=== PATIENT | female | born 1935 | race Caucasian/White ===

== ENCOUNTER 2016-08-06 18:17 | Inpatient (IN) ==
[2016-08-06] MEDS ORDERED: Ondansetron 4 MG/2 ML VIAL IVP ONE (18:19)
[2016-08-06] MEDS ORDERED: *HR* Heparin 5,000 UNIT/ML VIAL IVP ONE (18:19)
[2016-08-06] MEDS ORDERED: *HR* Heparin 5,000 UNIT/ML VIAL IVP PRN ×2 (18:19)
[2016-08-06] MEDS ORDERED: *HR* Ticagrelor 90 MG TABLET PO ONE (18:19)
--- NOTE | 2016-08-06 18:23 | Emergency Department Note ---
Disposition Clinical Impression: ST elevation myocardial infarction (STEMI) Qualifiers: Involved coronary artery: LAD coronary artery Qualified Code(s): I21.02 - ST elevation (STEMI) myocardial infarction involving left anterior descending coronary artery Disposition: Admitted As Inpatient Condition: Fair Chest Pain HPI - General Chief Complaint: ED Chest Pain Stated Complaint: chest pain Time Seen by Provider: 08/06/16 18:18 Source: patient, EMS Mode of arrival: EMS Limitations: no limitations Vital Signs Reviewed: Yes Nursing Notes Reviewed: Yes - History of Present Illness HPI Narrative: 81-year-old female presents for evaluation of chest pain left shoulder pain. Notes pain started proctoring 2 hours prior to arrival. Patient notes pain is nonexertional. Associated with nausea. No vomiting. Patient denies any cardiac history. No stents. Pre-hospital EKG was concerning for STEMI in the anterior lateral wall. Patient received aspirin as well as 2 nitroglycerin in route. Intervention manager animal was paged regarding these findings. Recommended to repeat an EKG in the ER with updates. Patient's updated EKG shows an anterior lateral STEMI. STEMI alert was called upon arrival to the ED. Pt complaint: chest pain - Related Data Allergies Allergy/AdvReac Type Severity Reaction Status Date / Time Influenza Virus Vaccines Allergy Hives Verified 08/06/16 18:28 All systems ED: reviewed and negative except as stated. Constitutional: Reports: as per HPI. Denies: fever Eyes: Reports: as per HPI ENT ED: Reports: as per HPI Cardiovascular: Reports: as per HPI, chest pain Respiratory: Reports: as per HPI. Denies: dyspnea Gastrointestinal: Reports: as per HPI, nausea Genitourinary: Reports: as per HPI Musculoskeletal: Reports: as per HPI Integumentary: Reports: as per HPI Neurological: Reports: as per HPI Psychiatric: Reports: as per HPI Endocrine: Reports: as per HPI Hematological/Lymphatic: Reports: as per HPI Allergic/Immunologic: Reports: as per HPI Physical Exam - General Limitations: no limitations General appearance: alert, other (Appears uncomfortable) - Head Head exam: atraumatic, normocephalic, normal inspection - Eye Eye exam: Present: normal appearance, EOMI - ENT ENT exam: normal exam, mucous membranes moist - Neck Neck exam: Present: normal inspection, trachea midline - Chest Chest inspection: Present: normal inspection, symmetric chest wall rise - Respiratory Respiratory exam: Present: normal lung sounds bilaterally. Absent: respiratory distress - Cardiovascular Cardiovascular exam: Present: regular rate, normal rhythm. Absent: systolic murmur - Abdominal Exam Abdominal exam: Present: soft, Non-Tender - Extremities Exam Extremities exam: Present: normal inspection. Absent: pedal edema - Back Exam Back exam: Present: normal inspection - Neurological Exam Neurological exam: Present: alert, oriented X3 - Skin Skin exam: Present: warm, dry, intact, normal color Course Course Narrative: Patient seen and examined. Patient's in acute distress. Stimulator notified upon - Reevaluation(s) Reevaluation #1: STEMI alert called. Time: 18:23 - Consultations Consultation #1: Spoke with Dr. Byers. STEMI alert called. Time: 18:23 Vital Signs Temperature 98.2 F 08/06/16 18:18 Pulse Rate 102 08/06/16 18:18 Respiratory Rate 16 08/06/16 18:18 Blood Pressure 108/79 08/06/16 18:18 O2 Sat by Pulse Oximetry 95 08/06/16 18:18 Temperature 98.2 F 08/06/16 18:18 Pulse Rate 102 08/06/16 18:18 Respiratory Rate 16 08/06/16 18:18 Blood Pressure 108/79 08/06/16 18:18 O2 Sat by Pulse Oximetry 95 08/06/16 18:18 Oxygen Delivery Oxygen Delivery Room Air Chest Pain - MDM Narrative Medical decision making narrative: 81-year-old female presents for evaluation of chest pain. Patient had a prehospital EKG was suggestive of STEMI. Called cardiology prehospital and recommended to repeat EKG. Updated repeat EKG shows acute STEMI in the anterior lateral wall with ST elevation in the anterior lateral leads. Activated catheter lab. Patient received aspirin as well as nitroglycerin. STEMI protocol was followed. Patient was updated on plan of care instructed that she was having a heart attack and will be transferred to the intervention suite for definitive management. Family not at bedside at the time of my evaluation. - Radiology Data Radiology results reviewed: Yes I reviewed the patient's radiology results. - EKG Data EKG attestation: Yes I reviewed and interpreted this EKG. EKG shows normal: sinus rhythm Rate: normal Rhythm: NSR [place]/QRS: normal ST segment elevation in: I, aVL, v3, v4, v5, v6 Interpretation: acute NH
--- NOTE | 2016-08-06 18:28 | Emergency Department Note ---
START Narrative - START START: I examined this patient and my medical decision-making was reviewed with the TYPE CUTTER/PA/Advanced Practice Nurse/Resident Physician. I agree with the documented findings, disposition and treatment plan as described except to the extent set forth below. ED attending note: Patient seen with emergency medicine resident Dr. Alcocer. Please see a copy of his note for details of the H&P, evaluation, management and disposition of this patient. We independently had wlei-co-[id number] contact with the patient Briefly: A 81-year-old female by EMS. Ambulance crew sent a pre-arrival EKG which is suggestive of acute anterolateral ST elevation OR. I discussed the case with Dr. Cisneros stand in after receiving an interpreting that EMS EKG. His recommendation was to await arrival repeat EKG and tone out the STEMI alert. Upon arrival patient was pain was 10 out of 10 2 hours duration radiating to the neck and arm nonexertional with no prior history of OR or stents, had an EKG which showed an ST elevation OR in the anterolateral leads. STEMI protocol and STEMI alert has been activated. And we recontacted Dr. Byers with this updated information. Provided 30 minutes critical care service for this patient. Patient is being medicated and will be transported to the cardiac catheter lab as soon as possible.
[2016-08-06] MEDS ORDERED: Heparin 25,000 UNIT/500 ML D5W 25,000 UNIT/500 ML MLS IVC SCH (18:30)
[2016-08-06] MEDS ORDERED: Nitroglycerin 25 MG/250 ML INFUS..BTL IVC SCH (18:30)
[2016-08-06 18:36] LABS: Basophils # 0.1 K/mcL (0.0-0.2); Basophils % 0.5 %; Eosinophils # 0.2 K/mcL (0.0-0.6); Eosinophils % 1.1 %; Hematocrit 43.5 % (35.3-44.9); Hemoglobin 14.5 g/dL (11.5-15.4); Immature Granulocytes % 0.4 % (0-4); Lymphocytes # 2.4 K/mcL (0.6-4.6); Lymphocytes % 16.6 %; Mean Corpuscular HGB Conc 33.3 g/dL (31.6-35.5); Mean Corpuscular Hemoglobin 33.7 pg (28.0-33.3); Mean Corpuscular Volume 101.2 fL (83.0-100.0); Mean Platelet Volume 9.1 fL (9.4-12.4); Monocytes # 1.1 K/mcL (0.0-1.3); Monocytes % 7.6 %; Neutrophils # 10.4 K/mcL (1.6-8.9); Platelet Count 380 K/mcL (140-400); Red Cell Distribution Width 12.2 % (11.5-14.5); Segmented Neutrophils % 73.8 %
[2016-08-06 18:40] LABS: Prothrombin Time 10.4 Seconds (9.4-12.1)
[2016-08-06 18:43] LABS: Activated Partial Thrombo Time 24.2 Seconds (26.0-36.0)
[2016-08-06] MEDS ORDERED: *HR* Morphine 2 MG/ML SYRINGE IVP ONE (18:43)
[2016-08-06] MEDS ORDERED: *HR* Morphine 2 MG/ML SYRINGE ONE (18:43)
[2016-08-06] MEDS ORDERED: Verapamil 5 MG/2 ML VIAL ONE (18:47)
[2016-08-06] MEDS ORDERED: Heparin 1,000 UNITS/500 mL NS 500 ML ONE (18:48)
[2016-08-06] MEDS ORDERED: Nitroglycerin 1,000 MCG/10 ML VIAL IV ONE (18:48)
[2016-08-06] MEDS ORDERED: *HR* Heparin 10,000 UNIT/10 ML VIAL ONE (18:48)
[2016-08-06] MEDS ORDERED: 0.9 % Sodium Chloride 1,000 ML ONE ×2 (18:48→19:02)
[2016-08-06 18:49] LABS: Calcium 9.2 mg/dL (8.6-10.8); Magnesium 1.4 mg/dL (1.6-2.6)
[2016-08-06] MEDS ORDERED: *HR* FentaNYL (PF) 250 MCG/5 ML VIAL ONE (19:02)
[2016-08-06] MEDS ORDERED: *HR* Midazolam HCl 5 MG/5 ML VIAL IVP ONE (19:02)
--- NOTE | 2016-08-06 19:05 | Pre-Sedation Evaluation ---
Pre-sedation evaluation - Pre-sedation checklist Date of procedure: 08/06/16 Procedure: [facility] Recent Vitals: Last Vital Signs Temp 98.2 F 08/06/16 18:18 Pulse 101 08/06/16 18:55 Resp 18 08/06/16 19:01 BP 105/75 08/06/16 19:01 Pulse Ox 96 08/06/16 18:55 H&P (including ROS) documented in medical record: Yes Previous reaction to sedatives/anesthetics: Unknown Dietary Status: unknown Airway Assessment: Patient can open mouth completely, TMJ function normal ASA Classification *see protocol: CLASS II-Mild systemic disease, E-EMERGENCY- Add to any of the above to indicate emergent Plan of Care: Pt appropriate candidate for procedure/moderate/conscious sedation , Risks/benefits of procedure/sedation discussed w/ patient/family, If not NPO; Risk of intake outweiged by necessity to perform procedure (stemi - acute mi - emergent)
[2016-08-06] MEDS ORDERED: Tirofiban 5 MG/100ML 5 MG/100 ML BAG IV ONE (19:15)
[2016-08-06] MEDS ORDERED: *HR* Adenosine 6 MG/2 ML VIAL IVP ONE (20:03)
[2016-08-06] MEDS ORDERED: niCARdipine 20 MG/200 ML MLS IVC ONE (20:07)
[2016-08-06] MEDS ORDERED: Furosemide 40 MG/4 ML VIAL IVP PRN (20:27)
[2016-08-06] MEDS ORDERED: Tirofiban 12.5 MG/250ML 12.5 MG/250 ML BAG IVC SCH (20:30)
[2016-08-06] MEDS ORDERED: *HR* HYDROcodone/Acet 5/325 mg TABLET PO PRN (20:30)
[2016-08-06] MEDS ORDERED: Nitroglycerin 0.4 MG TAB.SUBL SL PRN (20:30)
--- NOTE | 2016-08-06 20:43 | Invasive Diagnostic Lab Proc ---
Name: Pushpa Bernardo Date of Study: 08/06/2016 Date: 1935 Ht: 68.1in Medical Record#: [id number] Age: 81 Wt: 159.84lb Gender: Female BSA: 1.86 Order #: [id number] BMI: 24.22 Physicians Procedure Physician: Da Byers MD, [facility] Referring MD: Referring MD: Staff Name Position Time In Sites, Shena RT (R) Monitor 07:06 PM Nannette Perez RT Scrub 07:07 PM Terry Talley RN Fats And Oils Loader 07:07 PM Indications Indication STEMI Procedures Performed Procedure L HRT ARTERY/VENTRICLE ANGIO PRQ CARD REVASC MT 1 VSL Pre-Procedure Checklist Pt not NPO for procedure and MD aware. Plan of Care Patient will tolerate the procedure without complications. Adequate level of comfort will be maintained. Hemodynamics will remain stable Patient will recover from procedure without complications. Respiratory function will be maintained. Cardiac rhythm will remain stable. Patient temperature will be maintained. Patient and/or family have verbalized understanding of the procedure. Patient Education Allergies Penicillin Influenza Virus Vaccines Vital Signs Time BP (mmHg) HR (bpm) O2 Sat. RR (bpm) LOC 07:10 PM / % 4 = Oriented but drowsy 07:10 PM / % 4 = Oriented but drowsy 07:26 PM / % 4 = Oriented but drowsy 07:56 PM / % 4 = Oriented but drowsy 08:11 PM / % 4 = Oriented but drowsy 07:06 PM 124 / 84 87 100 % 07:11 PM 103 / 77 107 95 % 17 07:16 PM 100 / 64 104 94 % 24 07:20 PM 107 / 79 96 92 % 15 07:21 PM 114 / 68 99 96 % 15 07:26 PM 111 / 75 96 95 % 18 07:31 PM 115 / 76 96 94 % 07:36 PM 111 / 74 97 94 % 15 07:41 PM 105 / 68 94 93 % 28 07:46 PM 119 / 76 94 94 % 23 07:51 PM 119 / 84 99 92 % 18 07:56 PM 122 / 82 97 93 % 31 08:01 PM 114 / 83 96 92 % 10 08:06 PM 100 / 72 102 93 % 7 08:11 PM 92 / 54 100 93 % 21 08:16 PM 83 / 59 98 91 % 18 08:17 PM 86 / 57 98 86 % 17 08:21 PM 92 / 60 93 80 % 08:26 PM 103 / 67 88 93 % 23 Procedural Medications Time Medication Dose Units Method Given By 07:09 PM Oxygen 2 L/min nasal cannula Terry Talley RN 07:09 PM Versed 1 mg Intravenous Terry Talley RN 07:10 PM Fentanyl 25 mcg Intravenous Terry Talley RN 07:10 PM Lidocaine 2% 0.5 ml Subcutaneous Da Byers MD, FACC 07:10 PM Nitroglycerin 200 mcg Verapamil 2.5 mg Intraarterial Da Byers MD, FACC 07:52 PM Heparin 1000 units Intravenous Terry Talley RN 07:17 PM Aggrastat Bolus: 37.5 ml Intravenous Terry Talley RN 07:17 PM Aggrastat 12.5mg/250ml 6.6 ml Intravenous Terry Talley RN 07:57 PM Versed 1 mg Intravenous Terry Talley RN 07:58 PM Fentanyl 25 mcg Intravenous Terry Talley RN 08:03 PM Nitroglycerin 200 mcg Intracoronary Da Byers MD 08:06 PM Adenosine 60 mcg Intracoronary Da Byers MD, FACC 08:06 PM Adenosine 60 mcg Intracoronary Da Byers MD, FACC 08:06 PM Adenosine 60 mcg Intracoronary Da Byers MD, FACC 08:07 PM Adenosine 60 mcg Intracoronary Da Byers MD, FACC 08:07 PM Adenosine 60 mcg Intracoronary Da Byers MD, FACC 08:07 PM Adenosine 60 mcg Intracoronary Da Byers MD, FACC 08:09 PM Cardene 0.1 mg Intracoronary Da Byers MD 08:15 PM Cardene 0.1 mg Intracoronary Da Byers MD 08:19 PM Nitroglycerin 200 mcg Intracoronary Da Byers MD 08:20 PM Nitroglycerin 150 mcg Intracoronary Da Byers MD 08:20 PM Oxygen 10 L/min oximask Terry Talley RN Concha Score Preprocedure Postprocedure Activity 2- Moves 4 extremities sustained head lift Activity 2- Moves 4 extremities sustained head lift Circulation 2- SBP +/= 20 points of pre-anesthetic level Circulation 2- SBP +/= 20 points of pre-anesthetic level Consciousness 2- Awake and alert oriented x 3 Consciousness 2- Awake and alert oriented x 3 O2 Saturation 2- Able to maintain O2 satruation of 92% on room air O2 Saturation 2- Able to maintain O2 satruation of 92% on room air Respiratory 2- Able to deep breathe and cough well Respiratory 2- Able to deep breathe and cough well Total Score 10 Total Score 10 Contrast Agent: Isovue Diagnostic Contrast: 246 ml Total Contrast: 246 ml Fluoro Dose: 2779 mGy Activated Clotting Time Time Seconds to Clot 08:02 PM 289 Procedure Log Time Note Enter By 06:55 PM CathStat 07:00 PM Hernan, Shena RT (R) Position: Monitor Time in: 19:00 [email or web address] 07:00 PM Nannette Perez RT Position: Scrub Time in: 19:00 [email or web address] 07:00 PM Terry Talley RN Position: Fats And Oils Loader Time in: 19:00 csmith 07:00 PM Patient charges- Angio tray pack, Navilyst 3mm J, Pulse Oximetry and ACIST tubing and transducer csmith 07:00 PM Procedure start 19:00 csmith 07:00 PM Pt arrived to labor economist 2 at 19:00 csmith 07:05 PM Physician arrived 19:05 csmith 07:05 PM Vitals capture started with the following parameters, Patient=Adult, Interval=5 min, Initial Sawbvkgh=518 mmHg, Deflation Rate=5 mmHg, Cuff placed on Right Arm 07:06 PM Recorded ECG: IB=189 Condition=Condition 1 07:06 PM HR=87 bpm, JOMJ=206/84 mmhg, VzF7=642.0 %, Comment=st elevation 07:07 PM Hair removed from procedure site in procedure lab using clippers. Right wrist and groin prepped with Chloraprep by Shena Becerra RT (R), safety strap applied then patient was draped. Skin intact. [facility] 07:09 PM Pressure channel 1 zeroed. 07:09 PM Case Delayed No : PM Time: 19:09 Oxygen on at 2 L/min per nasal cannula by Terry Talley RN tsites 07:10 PM Time: 19:09 Versed 1 mg Intravenous Given by Terry Talley RN ts 07:10 PM Time: 19:10 Fentanyl 25 mcg Intravenous Given by Terry Talley RN ts 07:10 PM Time: 19:10 0.5 ml Lidocaine 2% to right radial Subcutaneous Given by Da Byers MD, [facility] tsites 07:10 PM Time: 19:10 Patient comfortable and pain free: No 07:10 PM Time: 19:10LOC: 4 = Oriented but drowsy tsites 07:10 PM Clinical Presentation: STEMI or equivalent tsites 07:10 PM Time out performed according to hospital policy tsites 07:10 PM Access obtained by percutaneous puncture. 6Fr 10cm Terumo Glidesheath sheath placed in right Radial artery. [id number] tsites 07:11 PM Time: 19:10 Patient given 200 mcg Nitroglycerin, and 2.5 mg Verapamil Intraarterial by Da Byers MD, [facility] tsites 07:11 PM 0.035 260cm Navilyst 3mmJ wire [id number] tsites 07:11 PM [place]=230 bpm, FZHS=284/77 mmhg, SpO2=95 %, Resp=17 B/min 07:11 PM Inflation device was opened. tsites 07:12 PM LCA angiography performed in multiple views. tsites 07:13 PM Recorded Pressure: Ao, ME=268, Condition=Condition 1 (Aorta) Ao 116/92/104 07:14 PM PCI Status Emergency tsites 07:14 PM PCI Indication: Immediate PCI for STEMI tsites 07:14 PM 6Fr RBL 3.5 Convey guide catheter was used to cannulate the PCI vessel successfully. reused? No tsites 07:14 PM .014 PT Graphix 182cm guide wire across target lesion- successful. reused? No tsites 07:15 PM PCI lesion in Proximal LAD. Pre Stenosis: 100 Pre ANJELICA Flow: 0: No Flow/No perfusion tsites 07:16 PM RV=757 bpm, ZMBN=267/64 mmhg, SpO2=94 %, Resp=24 B/min, Comment=st elevation 07:16 PM .014 Prowater 180cm guide wire across target lesion- successful. reused? No tsites 07:17 PM Time: 19:52 Heparin 1000 units Intravenous Given by Terry Talley RN tsites 07:17 PM Time: 19:17 Aggrastat Bolus: 37.5 ml Intravenous Given by Terry Talley RN Mota pump tsites 07:17 PM Time: 19:17 Aggrastat 12.5mg/250ml 6.6 ml Intravenous Given by Terry Talley RN Mota pump tsites 07:19 PM 2.0 mm x 15 mm Emerge Monorail balloon across target lesion- successful. reused? No tsites 07:20 PM NIBP STAT measurement started. 07:20 PM HR=96 bpm, PZBB=384/79 mmhg, SpO2=92.0 %, Resp=15 B/min, Comment=st elevation 07:21 PM Balloon inflated @ 0.5 horace for 3 seconds tsites 07:21 PM HR=99 bpm, VVVQ=974/68 mmhg, SpO2=96.0 %, Resp=15 B/min 07:22 PM Balloon catheter removed intact. tsites 07:22 PM Guide wire removed intact. tsites 07:26 PM HR=96 bpm, FJLW=380/75 mmhg, SpO2=95 %, Resp=18 B/min, Comment=st elevation 07:26 PM Time: 19:10LOC: 4 = Oriented but drowsy tsites 07:26 PM Time: 19:10 Patient comfortable and pain free:yes tsites 07:30 PM .014 Fielder xt 300cm guide wire across target lesion- successful. reused? No tsites 07:31 PM 2.0 mm x 15 mm Emerge otw balloon across target lesion-unsuccessful. reused? No tsites 07:31 PM HR=96 bpm, OBTY=783/76 mmhg, SpO2=94 %, Comment=st elevation 07:36 PM HR=97 bpm, UWFU=938/74 mmhg, SpO2=94 %, Resp=15 B/min, Comment=st elevation 07:41 PM HR=94 bpm, XHSR=300/68 mmhg, SpO2=93 %, Resp=28 B/min, Comment=st elevation 07:41 PM Time: 19:26 Patient comfortable and pain free: Yes tsites 07:41 PM Time: 19:26LOC: 4 = Oriented but drowsy tsites 07:46 PM HR=94 bpm, KUGV=821/76 mmhg, SpO2=94 %, Resp=23 B/min 07:47 PM 2.0x15 emerge monorail reinserted tsites 07:51 PM Guide wire removed intact. tsites 07:51 PM Balloon catheter removed intact. tsites 07:51 PM Fielder wire and 2.0x15 otw reinserted tsites 07:51 PM HR=99 bpm, TTME=457/84 mmhg, SpO2=92 %, Resp=18 B/min, Comment=st elevation 07:52 PM Balloon inflated @ 10 horace for 19 seconds tsites 07:52 PM Balloon inflated @ 12 horace for 14 seconds tsites 07:54 PM Balloon inflated @ 14 horace for 16 seconds tsites 07:56 PM HR=97 bpm, JTWV=713/82 mmhg, SpO2=93 %, Resp=31 B/min, Comment=st elevation 07:56 PM Guide wire removed intact. tsites 07:57 PM Balloon catheter removed intact. tsites 07:58 PM Time: 19:57 Versed 1 mg Intravenous Given by Terry Talley RN tsites 07:58 PM Time: 19:58 Fentanyl 25 mcg Intravenous Given by Terry Talley RN tsites 07:59 PM act drawn tsites 08:00 PM prowater reinserted tsites 08:01 PM 3.0mm x 32mm Synergy drug-eluting stent across target lesion- successful Lot #[id number] tsites 08:01 PM Balloon inflated @ 12 horace for 14 seconds tsites 08:01 PM HR=96 bpm, YBTF=755/83 mmhg, SpO2=92.0 %, Resp=10 B/min, Comment=st elevation 08:02 PM At 20:02 the ACT was 289 seconds. tsites 08:03 PM Stent delivery system removed intact. tsites 08:03 PM Time: 20:03 Nitroglycerin 200 mcg Intracoronary Given by Da Byers MD tsites 08:04 PM 3.0 mm x 8mm NC Trek Rx balloon across target lesion- successful. reused? No tsites 08:04 PM Balloon inflated @ 18 horace for 12 seconds tsites 08:05 PM Balloon inflated @ 18 horace for 12 seconds tsites 08:06 PM Time: 20:06 Adenosine 60 mcg administered Intracoronary by Da Byers MD, [facility] tsites 08:06 PM Time: 20:06 Adenosine 60 mcg administered Intracoronary by Da Byers MD, [facility] tsites 08:06 PM Time: 20:06 Adenosine 60 mcg administered Intracoronary by Da Byers MD, [facility] tsites 08:06 PM RV=380 bpm, MYVI=521/72 mmhg, SpO2=93 %, Resp=7 B/min, Comment=st elevation 08:07 PM Time: 20:07 Adenosine 60 mcg administered Intracoronary by Da Byers MD, [facility] tsites 08:07 PM Time: 20:07 Adenosine 60 mcg administered Intracoronary by Da Byers MD, [facility] tsites 08:07 PM Time: 20:07 Adenosine 60 mcg administered Intracoronary by Da Byers MD, FACC tsites 08:08 PM Balloon catheter removed intact. tsites 08:10 PM Time: 20:09 Cardene 0.1 mg Intracoronary Given by Da Byers MD tsites 08:11 PM OS=069 bpm, NIBP=92/54 mmhg, SpO2=93 %, Resp=21 B/min, Comment=st elevation 08:11 PM Time: 19:56LOC: 4 = Oriented but drowsy tsites 08:11 PM Time: 19:56 Patient comfortable and pain free: Yes tsites 08:12 PM 2.0 mm x 15 mm Emerge Monorail balloon across target lesion- successful. reused? No tsites 08:14 PM Balloon inflated @ 10 horace for 4 seconds tsites 08:14 PM Balloon inflated @ 4 horace for 2 seconds tsites 08:15 PM Time: 20:15 Cardene 0.1 mg Intracoronary Given by Da Byers MD tsites 08:16 PM Guide wire removed intact. tsites 08:16 PM Balloon catheter removed intact. tsites 08:16 PM HR=98 bpm, NIBP=83/59 mmhg, SpO2=91.0 %, Resp=18 B/min 08:16 PM NIBP STAT measurement started. 08:16 PM wire reinserted catheter removed tsites 08:17 PM 5Fr TIG catheter inserted over the wire DNC tsites 08:17 PM HR=98 bpm, NIBP=86/57 mmhg, SpO2=86 %, Resp=17 B/min 08:18 PM Pressure channel 1 zeroed. 08:18 PM Recorded Pressure: LV, HR=92, Condition=Condition 1 (Left Ventricle) LV 102/24/39 08:19 PM Recorded Pressure: LV, HR=97, Condition=Condition 1 (Left Ventricle) LV 83/20/36 08:20 PM Recorded Pressure: LV, Ao, HR=94, Condition=Condition 1 (Left Ventricle) LV 86/19/33, (Aorta) Ao 84/50/68 08:20 PM Time: 20:19 Nitroglycerin 200 mcg Intracoronary Given by Da Byers MD tsites 08:20 PM Time: 20:20 Nitroglycerin 150 mcg Intracoronary Given by Da Byers MD tsites 08:20 PM Catheter selectively placed in left ventricle tsites 08:20 PM edp measured tsites 08:20 PM Time: 20:20 Oxygen on at 10 L/min per oximask by Terry Talley RN tsites 08:21 PM HR=93 bpm, NIBP=92/60 mmhg, SpO2=80.0 % 08:21 PM Recorded Pressure: Ao, HR=92, Condition=Condition 1 (Aorta) Ao 97/81/89 08:21 PM RCA angiography performed in multiple views. tsites 08:22 PM Coronary Dominance: right tsites 08:22 PM Lesion found in Mid RCA. Pre Stenosis: 50 Pre ANJELICA Flow: tsites 08:23 PM Procedure completed at 20:23 tsites 08:23 PM Sign out completed: Radiation Dose 2779 mGy Fluoro Time: 30.6 Isovue 370 - 500ml contrast 246 ml given by Da Byers MD, [facility]. Complications: NoneCardiac Rehab Consult needed: YesConfirmed administered medications: Yes tsites 08:24 PM Isovue 370 - 500ml,1 Bottle(s) used. tsites 08:24 PM Arterial sheath pulled, Vasc Band closure device used and was Successful S/N. tsites 08:24 PM 12 ml air in Vasc Band. tsites 08:24 PM Post ECG NSR tsites 08:24 PM Post Blood Pressure 92/60 tsites 08:24 PM 20:24 Post Pulses Rt Radial 1+ tsites 08:25 PM Information taught Cardiac Cath, PCI, and Vasc Band tsites 08:25 PM Education needs Procedure, Plan of Care, and Responsibilities of Patient in Care tsites 08:25 PM Learning barriers :None tsites 08:25 PM Education Methods Verbal tsites 08:25 PM Education evaluation Able to repeat information tsites 08:25 PM Site status No bleeding/hematoma - Rt Wrist as reported by Nannette Perez RT at 20:25 tsites 08:25 PM Plavix, Effient or Brilinta given Yes Brlinta in ER tsites 08:25 PM Delay to floor No tsites 08:25 PM Patient out of room: 20:25 tsites 08:25 PM Family placed in consult room. tsites 08:26 PM HR=88 bpm, BTJO=380/67 mmhg, SpO2=93.0 %, Resp=23 B/min 08:27 PM Time: 20:11 Patient comfortable and pain free: Yes tsites 08:27 PM Time: 20:11LOC: 4 = Oriented but drowsy tsites 08:35 PM Report given to devonte SEBASTIAN Pt taken to ICU Room #5. 20:35 tsites Complications Complication None Hemodynamics Pressures Site Systolic/A Wave Diastolic/V Wave Mean AO 116 92 104 LV 102 24 39 LV 83 20 36 LV 86 19 33 AO 84 50 68 AO 97 81 89 Post Procedure Information Blood Pressure: 92/60 mmHg Rhythm: NSR Post procedural instructions were given Closure Device Time Device Success/Fail 08/06/2016 8:26:00 PM Mechanical Compression Successful Site Checks Time Location Status Staff Sheath In? Note 08:25 PM Rt Wrist No bleeding/hematoma Nannette Perez RT Pulses Time Site Pre-Procedure Post-Procedure Note 8:24:00 PM Rt Radial 1+ Updated by Shena Hernan RT (R) on 08/06/2016 8:36:38 PM Shena Becerra RT electronically signed on 08/06/2016 8:37:05 PM with status of Final
[2016-08-06] MEDS: *HR* Ticagrelor 90 MG TABLET PO SCH (21:00)
[2016-08-07] MEDS: *HR* Morphine 2 MG/ML SYRINGE IVP PRN ×2 (00:01→22:15)
[2016-08-07 03:48] LABS: Basophils % 0.3 %; Eosinophils % 0.1 %; Hematocrit 37.1 % (35.3-44.9); Immature Granulocytes % 0.5 % (0-4); Immature Platelets 3.4 % (1.1-6.1); Lymphocytes # 1.8 K/mcL (0.6-4.6); Lymphocytes % 11.3 %; Mean Corpuscular HGB Conc 33.7 g/dL (31.6-35.5); Mean Corpuscular Hemoglobin 34.2 pg (28.0-33.3); Mean Corpuscular Volume 101.4 fL (83.0-100.0); Mean Platelet Volume 9.4 fL (9.4-12.4); Monocytes # 1.7 K/mcL (0.0-1.3); Monocytes % 10.9 %; Neutrophils # 11.9 K/mcL (1.6-8.9); Platelet Count 339 K/mcL (140-400); Red Blood Count 3.66 M/mcL (3.82-4.97); Red Cell Distribution Width 12.5 % (11.5-14.5); Segmented Neutrophils % 76.9 %
[2016-08-07 03:52] LABS: Hemoglobin 12.5 g/dL (11.5-15.4)
[2016-08-07 03:59] LABS: BUN/Creatinine Ratio 19 (6-26); Blood Urea Nitrogen 16 mg/dL (7-20); Calcium 8.2 mg/dL (8.6-10.8); Carbon Dioxide 22 mEq/L (19-29); Chloride 103 mEq/L (98-109); Glucose 123 mg/dL (70-99); Osmolality,Calculated 283 (280-300); Potassium 4.5 mEq/L (3.5-4.5); Sodium 135 mEq/L (136-145); eGFR For African Americans > 60 (> 60); eGFR For Non-African Americans > 60 (> 60)
[2016-08-07] MEDS: *HR* Heparin 5,000 UNIT/ML VIAL SQ SCH ×2 (06:10→18:05)
[2016-08-07] MEDS: *HR* Ticagrelor 90 MG TABLET PO SCH ×2 (08:00→20:42)
[2016-08-07] MEDS: Aspirin 81 MG TAB.CHEW PO SCH (08:00)
--- NOTE | 2016-08-07 08:27 | Cardiology History & Physical ---
Date of Encounter: 08/07/16 Time of Encounter: 08:30 Assessment and Plan (1) ST elevation myocardial infarction (STEMI) Current Visit: Yes Status: Acute Acute WI - anterolateral STEMI - likely proximal LAD. Critical guarded prognosis. Emergent LHC to delineate coronary anatomy amenable to primary PCI. Aspirin, brilinta, heparin given. Plan for transradial over transfemoral approach. EF assessment will be completed via ventriculogram or echo. Cardiac rehab consult. The assessment and plan as outlined above was discussed with the patient and/or family members who expressed understanding and agreement. All questions were answered. Qualifiers: Involved coronary artery: LAD coronary artery Qualified Code(s): I21.02 - ST elevation (STEMI) myocardial infarction involving left anterior descending coronary artery (2) Acute kidney failure Current Visit: Yes Status: Acute BROCK. Attempt to minimize contrast will be made, but given life threatening STEMI - acceptable risk for LHC. The assessment and plan as outlined above was discussed with the patient and/or family members who expressed understanding and agreement. All questions were answered. Qualifiers: Acute renal failure type: unspecified Qualified Code(s): N17.9 - Acute kidney failure, unspecified History of Present Illness Chief complaint: shoulder/chest pressure HPI: Ms. Bernardo is a 81 year old female with no previous cardiac history presents with left shoulder discomfort radiating into chest starting a few hours ago. It was severe intensity and unrelieved with aspirin and nitroglycerin. She also has ?history of renal cancer that has been untreated for several years. No syncope or palpitations. Past Med Surg Social Fam HX - Past Medical History Medical history: cancer, COPD, hypertension Psychiatric history: no psych history - Social History Smoking Status: Current every day smoker Smokeless Tobacco Status: No Alcohol use: none Drug use: none Medications and Allergies Allergies Influenza Virus Vaccines Allergy (Verified 08/06/16 18:28) Hives All Systems Review: A 10-system review of systems was performed and is negative for pertinent findings except as documented above in the HPI. - Constitutional Constitutional: no chills, no fever(s) - EENT Eyes: no blurred vision, no loss of vision Nose, mouth and throat: no bleeding gums, no epistaxis - Cardiovascular Cardiovascular: no chest pain at rest, no chest pain with exertion - Respiratory Respiratory: no hemoptysis, no wheezing - Gastrointestinal Gastrointestinal: no hematemesis, no hematochezia - Genitourinary Genitourinary: no dysuria, no hematuria - Musculoskeletal Musculoskeletal: no arthralgias, no myalgias - Integumentary Integumentary: no erythema, no unusual bruising - Neurological Neurological: no abnormal speech, no tingling - Psychiatric Psychiatric: no anxiety, no depression - Hematological/Lymphatic Hematologic/Lymphatic: no easy bleeding, no easy bruising Physical Examination Vital Signs, Last 4 Hours Temp Pulse Resp BP Pulse Ox 08/07/16 08:00 114 20 99/59 92 08/07/16 07:59 98.4 F 08/07/16 06:00 108 12 102/73 94 08/07/16 05:00 111 12 104/69 94 General: Conversant, Other (mild distress) HEENT: Atraumatic, Normocephaly Neck: No JVD Cardiac: Reg Rate and Rhythm, No Murmur Lungs: Normal Breath Sounds Neuro: Alert and responsive Abdomen: Soft, Non-Tender Skin: No rashes noted on visualized skin Musculoskeletal: No Chest Wall Tenderness Extremities: No Edema Results 08/07/16 03:41 08/07/16 03:41 Lab Results 08/07/16 08/07/16 03:41 03:41 WBC 15.5 H Hgb 12.5 D Hct 37.1 Plt Count 339 Sodium 135 L Potassium 4.5 Chloride 103 Carbon Dioxide 22 BUN 16 Creatinine 0.85 Glucose 123 H Calcium 8.2 L
[2016-08-07] MEDS ORDERED: Magnesium Sulfate 2 GM in D5% in Water 100 ML IVPB ONE (08:54)
--- NOTE | 2016-08-07 10:16 | Cardiology Progress Note ---
Date of Encounter: 08/07/16 Time of Encounter: 08:30 Assessment and Plan (1) ST elevation myocardial infarction (STEMI) Current Visit: Yes Status: Acute Per cardiology: -Patient presented with acute STEMI. -Emergent LHC with 1 SONIDO to proximal LAD. -Per discussion with no other intervention needed, no official cath report to review at this time. -RIght radial access site. -CUrrently chest pain free. -Denies previous history of CAD. -ON asa, statin, and brilinta. -BPs 90-100s systolic. -Sinus tachycardic, average HR 112. -Echo pending. -Of note, per patient's primary RN, family concerned about patient's ability to safely manage her care once she goes home. -Will start low dose beta marc, hold if SBP less than 100. -Will continue to monitor. -Further recommendations pending echo. -building services coordinator consulted. Qualifiers: Involved coronary artery: LAD coronary artery Qualified Code(s): I21.02 - ST elevation (STEMI) myocardial infarction involving left anterior descending coronary artery (2) Non-sustained ventricular tachycardia Current Visit: Yes Status: Acute Per cardiology: -Non-sustained ventricular tachycardia in the setting post STEMI and intervention per telemetry. -Mg noted to be 1.4 on admission. -Otherwise patient sinus tachycardia with average HR 112. -Echo pending. -Mg rider given. -Will recheck Mg level. -Low dose beta marc ordered with hold parameters for SBP less than 100. -Will hold off on IV fluids for now due to EDP of 40. -Further recommendations pending echo. -Will continue to monitor HR and BP. (3) Hypomagnesemia Current Visit: Yes Status: Acute Per cardiology: -Mg 1.4 on admission. -Mg rider given. -Will re-check Mg today. -Will continue to monitor. (4) Urinary pain Current Visit: Yes Status: Acute Per cardiology: -Patient reports burning with urination. -States she was taking over the counter medications to relieve symptoms. -Urine culture ordered. -Will consult hospitalist team for recommendations. (5) Cough Current Visit: Yes Status: Acute Per cardiology: -Patient reports cough for 2-3 weeks. -Patient states it is productive with yellow sputum. -Denies fever, chills. -Chest x-ray with no acute process. -Will consult hospitalist service for recommendations. (6) Renal cancer Current Visit: Yes Status: Suspected Per cardiology: -Patient reports history of renal cancer. -Patient reports she has declined further work up or intervention for cancer. -Per review from in 2013, patient was still thinking about treatment or work up. Of note, it does not appear that patient has had biopsy of mass. She did have MRI in 2013 with 4cm left renal mass. It appears that patient has not followed with since. -Per my discussion with patient, patient still declines further testing or intervention for possible renal cancer. Patient aware of possible cancer, potential metastasis, and risk of . Patient still declines further intervention. -Will consult hospitalist services for recommendations. 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 All questions were answered. Thank you for involving us in the care of your patient. Please call with any questions. Discussed and reviewed with . Subjective Principal diagnosis: STEMI Interval history: Patient presented to [facility] with complaints of chest and left arm pain that occurred about 1-2 hours before presentation. ECG in squad concerning for STEMI , patient was evaluated in ER and ECG was repeated. STEMI alert notified. Patient was taken emergently to labeling strategist for LHC. Patient received 1 drug- eluding stent to proximal LAD. Per discussion with , no other intervention was needed. Patient currently chest pain free. Denies issues using right wrist. Objective Vital Signs, Last 4 Hours Temp Pulse Resp BP Pulse Ox 08/07/16 09:12 118 20 91/54 92 08/07/16 08:00 114 20 99/59 92 08/07/16 07:59 98.4 F General: Conversant, No Apparent Distress HEENT: Atraumatic, Normocephaly, Mucus Membranes Moist Neck: No JVD, Normal carotid pulses Cardiac: Reg Rate and Rhythm, Normal S1 and S2, No Murmur Lungs: Normal Breath Sounds, No Wheeze, Rales, Rhonchi Neuro: Alert and responsive, No focal deficits noted Abdomen: Soft, Non-Tender Skin: No rashes noted on visualized skin, Other (RIght radial access site with bandage. Denies issues using wrist. No bleeding/drainage noted on dressing. ) Musculoskeletal: No Chest Wall Tenderness Extremities: No Clubbing, No Cyanosis, No Edema, Normal Pulses Results 08/07/16 03:41 08/07/16 03:41 Lab Results Impressions Chest X-Ray 08/06/16 18:19 IMPRESSION: 1. No acute process. 2. COPD. D/ / Torito Talley MD / Torito Talley MD Interpreting Provider: Torito Talley MD Active Medications Acetaminophen (Tylenol) 500 mg PO Q6HR PRN PRN Reason: Mild Pain Stop: 02/05/17 20:28 Acetaminophen/Hydrocodone Bitart ([place] 5-325 Mg) 1 tab PO Q4HR PRN PRN Reason: Moderate Pain Stop: 02/05/17 20:31 Aspirin (Aspirin) 81 mg PO DAILY JOSH Stop: 02/06/17 09:01 Last Admin: 08/07/16 08:00 Dose: 81 mg Atorvastatin Calcium (Lipitor) 80 mg PO HS JOSH Stop: 02/05/17 21:01 Last Admin: 08/06/16 21:00 Dose: 80 mg Diphenhydramine HCl (Benadryl) 25 mg PO HS PRN PRN Reason: Insomnia Stop: 02/05/17 20:31 Heparin Sodium (Porcine) (Heparin) 0 unit IVP Q6HR PRN; Protocol PRN Reason: SEE COMMENTS Stop: 02/05/17 18:20 Heparin Sodium (Porcine) (Heparin) 0 unit IVP Q6H PRN; Protocol PRN Reason: SEE COMMENTS Stop: 02/05/17 18:20 Heparin Sodium (Porcine) (Heparin) 5,000 unit SQ Q12HR JOSH Stop: 02/06/17 06:01 Last Admin: 08/07/16 06:10 Dose: 5,000 unit Metoprolol Tartrate (Lopressor) 12.5 mg PO BID JOSH Stop: 02/06/17 10:16 Morphine Sulfate (Morphine Sulfate) 4 mg IVP Q3H PRN PRN Reason: Severe Pain (7-10) Stop: 02/05/17 20:28 Last Admin: 08/07/16 00:01 Dose: 4 mg Nitroglycerin (Nitroglycerin) 0.4 mg SL Q5MIN PRN PRN Reason: Chest Pain Stop: 02/05/17 20:31 Ondansetron HCl (Zofran) 4 mg IVP Q8HR PRN PRN Reason: Nausea And Vomiting Stop: 02/05/17 20:28 Ticagrelor (Brilinta) 90 mg PO BID JOSH Stop: 02/05/17 21:01 Last Admin: 08/07/16 08:00 Dose: 90 mg Laboratory Tests 05/04/15 08/06/16 08/06/16 09:42 18:24 18:24 WBC 14.2 H Hgb Creatinine 0.86 1.07 Magnesium 1.4 L Troponin I 08/06/16 08/07/16 08/07/16 18:24 03:41 03:41 WBC 15.5 H Hgb 12.5 D Creatinine 0.85 Magnesium Troponin I 1.76 H* - Imaging and Cardiology Chest Xray: report reviewed Echo: pending Cardiac cath: report reviewed - EKG Interpretation EKG results cardiology: personally reviewed (ECG reviewed with sinus tachycardia , ST elevated noted in V2-V4.), other (Telemetry reviewed with average HR 112, sinus tachycardia. PVCs noted. Several episodes of non-sustained ventricular tachycardia noted. PACs noted.) Consult Discharge Plan - Plan Referrals: Hillary Renteria CNP [Primary Care Provider] -
[2016-08-07 11:28] LABS: Bilirubin,Urine Negative (Negative); Blood,Urine Moderate (Negative); Clarity,Urine Turbid (Clear); Color,Urine Orange (Yellow); Glucose,Urine (UA) Normal (Normal); Ketones,Urine Negative (Negative); Leukocyte Esterase,Urine Large (Negative); Nitrite,Urine Positive (Negative); PH,Urine 5.5 pH Units (5.0-8.0); Protein,Urine Trace mg/dL (Neg-Trace); Specific Gravity,Urine > 1.030 (1.010-1.025); Urobilinogen,Urine Normal (Normal)
[2016-08-07 11:30] LABS: Bacteria,Urine Many per hpf (None-Few); Hyaline Casts,Urine None Seen per lpf (None-Few); Squamous Epithelial Cell,Urine Moderate per lpf (None-Few); WBC,Urine TNTC per hpf (0-3)
--- NOTE | 2016-08-07 12:10 | Invasive Diagnostic Lab ---
Name: Pushpa Bernardo Date of Study: 08/06/2016 Date: 1935 Ht: 173.0 cm /68.1 in Medical Record#: [id number] Age: 81 Wt: 72.5 kg / 159.84 lb Account/Order#: [id number] Gender: Female BSA: 1.86 Order #: [id number] Fluoro Dose: 2779 mGy BMI: 24.22 Procedure Physician: Da Byers MD, FACC Referring MD: Referring MD: Procedures Performed: LEFT HEART CATH PCI of Acute ND Indications: STEMI Impressions: There is severe one vessel coronary artery disease. Patient had successful PTCA/Drug-Eluting Stent placement in the proximal LAD. Recommendations: Optimal medical therapy of patient's disease. Aggressive risk factor modification. Patient being referred for cardiac rehab. Procedure Access obtained in the right Radial artery by percutaneous puncture Patient had successful PTCA/Drug-Eluting Stent placement in the proximal LAD. Complications: None Contrast: Isovue 246ml Closure Device: Mechanical Compression Hemodynamics: Pressures Site Systolic/ A Wave Diastolic/ V Wave End Diastolic/ Mean HR AO 116 92 104 100 LV 102 24 39 92 LV 83 20 36 97 LV 86 19 33 92 AO 84 50 68 95 AO 97 81 89 92 Coronary Dominance: right Lesion Findings/Interventions * Left Main Coronary Artery The LMCA is angiographically free of disease. * Left Anterior Descending There is a 32 mm long, 100% stenosis in the Proximal LAD. The lesion has a ANJELICA flow of 0 and has no thrombus present. An intervention was performed on the Proximal LAD with a final stenosis of 0%. There were no lesion complications. The final ANJELICA flow was 2. Slow flow treated with multiple rounds of adenosine, nicardipine. Distal LAD low pressure balloon inflation to break up any thrombus. Minimal improvement with treatment. Aggrastat was started prior to PCI. * Circumflex The Circumflex has mid 30% stenosis. The 1st Marginal had 50% stenosis * Right Coronary Artery There is a 50% stenosis in the Mid RCA. Interventional Device(s) Vessel Segment Type Name Diameter (mm) Length (mm) Proximal LAD Balloon Emerge Monorail 2 15 Proximal LAD Balloon Emerge otw 2 15 Proximal LAD Drug Eluting Stent Synergy 3 32 Proximal LAD Balloon NC Trek Rx 3 8 Updated by RT Sarah (R) on 08/06/2016 8:37:23 PM Da Byers MD, FACC electronically signed on 08/07/2016 12:07:18 PM with status of Final
[2016-08-07] MEDS ORDERED: MethylPREDNISolone 40 MG/ML VIAL IVP SCH (12:23)
[2016-08-07] MEDS ORDERED: 0.9 % Sodium Chloride 250 ML IVC ONE (12:24)
--- NOTE | 2016-08-07 12:28 | Internal Medicine Consult Note ---
Date of Encounter: 08/07/16 Time of Encounter: 12:26 - Assessment and Plan (1) Sepsis Current Visit: Yes Status: Acute Assessment and plan: Hypotension due to Sepsis secondary to UTI and acute bacterial bronchitis Start Levaquin, start IV fluids with the 250 mL bolus and continue at 100 mL per hour, may increase to 200 mL/h is still hypotensive Order blood cultures, urine cultures Qualifiers: Sepsis type: sepsis due to unspecified organism Qualified Code(s): A41.9 - Sepsis, unspecified organism (2) UTI (urinary tract infection) Current Visit: Yes Status: Acute Qualifiers: Urinary tract infection type: acute cystitis Hematuria presence: with hematuria Qualified Code(s): N30.01 - Acute cystitis with hematuria (3) COPD (chronic obstructive pulmonary disease) Current Visit: Yes Status: Acute Assessment and plan: Mild Acute COPD exacerbation secondary to acute bacterial bronchitis Continue duo nebs, oxygen, Levaquin and Solu-Medrol Qualifiers: COPD type: emphysema Emphysema type: unspecified Qualified Code(s): J43.9 - Emphysema, unspecified (4) Hypotension Current Visit: Yes Status: Acute Assessment and plan: Secondary to sepsis Qualifiers: Hypotension type: unspecified hypotension type Qualified Code(s): I95.9 - Hypotension, unspecified (5) ST elevation myocardial infarction (STEMI) Current Visit: Yes Status: Acute Assessment and plan: Management per cardiology Drug-eluting stent to the LAD Continue aspirin, Brilinta, metoprolol and statin Qualifiers: Involved coronary artery: LAD coronary artery Qualified Code(s): I21.02 - ST elevation (STEMI) myocardial infarction involving left anterior descending coronary artery (6) Hypomagnesemia Current Visit: Yes Status: Acute Assessment and plan: Replete as needed Start magnesium oxide 400 mg twice a day (7) Non-sustained ventricular tachycardia Current Visit: Yes Status: Acute (8) Renal cancer Current Visit: Yes Status: Suspected Assessment and plan: The patient does not want to have any further testing or treatment for a left renal mass Remains a full code Thank you for allowing me to precipitate in the care of this patient is call with any questions Qualifiers: Laterality: left Qualified Code(s): C64.2 - Malignant neoplasm of left kidney, except renal pelvis Internal Medicine - CN: HPI - Data of Consult Patient: new to practice Consult date: 08/07/16 Requesting Physician: Da Byers MD - Consult Narrative Reason for consult: UTI History of present illness: Ms. Bernardo is a 81 year old female with a past medical history of COPD not oxygen dependent, hypertension who was admitted to the ICU yesterday for STEMI. The patient had a drug-eluting stent placed in the LAD. We were consulted to assess the patient dysuria that has been there for the past 4 days, she is also complaining of yellowish phlegm and shortness of breath. Her blood pressure dropped to the 80s today, her heart rate was 114. She has developed nonsustained V. tach. Magnesium was 1.4. She was also diagnosed with a renal mass on the left kidney for which she does not wish to have any further diagnosis or treatment. The UA shows positive nitrates and too numerous to count white blood cells. She is still complaining of dysuria. Her last troponin was 1.76, white blood cell count today is 15.5. There are no fevers recorded. The patient says that she has been having UTIs for a long period of time but there are no past cultures in our system. 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 Other systems out of the 10 reviewed were negative Internal Medicine - CN: Meds Allergies Influenza Virus Vaccines Allergy (Verified 08/06/16 18:28) Hives Internal Medicine - CN: Exam - Constitutional Vitals: Temp Pulse Resp BP Pulse Ox 98.4 F 113 20 90/68 94 08/07/16 07:59 08/07/16 11:08 08/07/16 11:08 08/07/16 11:08 08/07/16 11:08 General appearance IM: Present: A&O X 3 - Head Head exam: Present: atraumatic, normal inspection - Expanded Head Exam Head exam expanded IM: Absent: abrasion, Burris's sign, contusion - Eye Eye exam: Present: EOMI, normal appearance. Absent: conjunctival injection, nystagmus - ENT ENT exam: Present: mucous membranes dry - Neck Neck exam general surgery: Present: full ROM, normal inspection. Absent: lymphadenopathy - Expanded Neck Exam Neck exam: Absent: anterior neck swelling - Respiratory Respiratory exam: Present: rales (Bivascular fine crackles and mild diffuse wheezing), wheezes - Cardiovascular Cardiovascular exam IM: Present: +S1, +S2, tachycardia - GI/Abdominal GI/Abdominal exam IM: Present: distended, hernia, soft. Absent: guarding, tenderness - Rectal Rectal exam: Present: deferred - Expanded Exam Female exam: Present: deferred - Extremities Exam Extremities exam IM: Present: full ROM, normal inspection. Absent: joint swelling, pedal edema - Back Exam Back exam: Present: full ROM - Neurological Exam Neurological exam: Present: CN II-XII intact, oriented X3. Absent: motor sensory deficit Internal Medicine - CN: Reslt - Labs CBC & Chem 7: 08/07/16 03:41 08/07/16 03:41 Labs: Short CBC 08/07/16 Range/Units 03:41 WBC 15.5 H (4.3-11.1) K/mcL Hgb 12.5 D (11.5-15.4) g/dL Hct 37.1 (35.3-44.9) % Plt Count 339 (140-400) K/mcL Neutrophils # 11.9 H (1.6-8.9) K/mcL BMP 08/07/16 03:41 Sodium 135 L Potassium 4.5 Chloride 103 Carbon Dioxide 22 BUN 16 Creatinine 0.85 Glucose 123 H Calcium 8.2 L Urine 08/07/16 Range/Units 11:08 Urine Color [place] A (Yellow) Urine Clarity Turbid A (Clear) Urine pH 5.5 (5.0-8.0) pH Units Ur Specific [place] > 1.030 H (1.010-1.025) Urine Protein Trace (Neg-Trace) mg/dL Urine Glucose (UA) Normal (Normal) mg/dL - ABG Interpretation ABG results: PT/INR, D-dimer PT 10.4 Seconds (9.4-12.1) 08/06/16 18:24 Consult Discharge Plan - Plan Referrals: Hillary Renteria, [facility] [Primary Care Provider] -
[2016-08-07] MEDS: 0.9 % Sodium Chloride 1,000 ML IVC SCH ×2 (12:31→20:43)
[2016-08-07] MEDS ORDERED: Levofloxacin 750 MG/150 ML 750 MG/150 ML BAG IVPB SCH (13:00)
[2016-08-07 15:43] LABS: BUN/Creatinine Ratio 20 (6-26); Blood Urea Nitrogen 17 mg/dL (7-20); Calcium 8.2 mg/dL (8.6-10.8); Carbon Dioxide 20 mEq/L (19-29); Chloride 103 mEq/L (98-109); Glucose 138 mg/dL (70-99); Osmolality,Calculated 286 (280-300); Potassium 4.4 mEq/L (3.5-4.5); Sodium 136 mEq/L (136-145); eGFR For African Americans > 60 (> 60); eGFR For Non-African Americans > 60 (> 60)
[2016-08-07 16:54] LABS: Magnesium 1.9 mg/dL (1.6-2.6)
[2016-08-07] MEDS: Magnesium Oxide 400 MG TABLET PO SCH ×2 (17:17→20:42)
[2016-08-07] MEDS: MethylPREDNISolone 40 MG/ML VIAL IVP SCH (20:42)
[2016-08-08 03:11] LABS: Basophils % 0.1 %; Hematocrit 35.4 % (35.3-44.9); Hemoglobin 11.6 g/dL (11.5-15.4); Hemoglobin 11.8 g/dL (11.5-15.4); Immature Granulocytes % 0.7 % (0-4); Lymphocytes # 0.9 K/mcL (0.6-4.6); Lymphocytes % 7.6 %; Mean Corpuscular HGB Conc 32.8 g/dL (31.6-35.5); Mean Corpuscular HGB Conc 33.7 g/dL (31.6-35.5); Mean Corpuscular Volume 100.9 fL (83.0-100.0); Mean Platelet Volume 9.5 fL (9.4-12.4); Mean Platelet Volume 9.6 fL (9.4-12.4); Monocytes # 0.4 K/mcL (0.0-1.3); Monocytes % 2.8 %; Platelet Count 285 K/mcL (140-400); Platelet Count 294 K/mcL (140-400); Red Blood Count 3.47 M/mcL (3.82-4.97); Red Blood Count 3.51 M/mcL (3.82-4.97); Red Cell Distribution Width 12.3 % (11.5-14.5); Segmented Neutrophils % 88.8 %
[2016-08-08 03:24] LABS: BUN/Creatinine Ratio 23 (6-26); Blood Urea Nitrogen 17 mg/dL (7-20); Calcium 8.4 mg/dL (8.6-10.8); Carbon Dioxide 24 mEq/L (19-29); Chloride 103 mEq/L (98-109); Glucose 142 mg/dL (70-99); Osmolality,Calculated 284 (280-300); Potassium 4.8 mEq/L (3.5-4.5); Sodium 135 mEq/L (136-145); eGFR For African Americans > 60 (> 60); eGFR For Non-African Americans > 60 (> 60)
[2016-08-08] MEDS: MethylPREDNISolone 40 MG/ML VIAL IVP SCH ×3 (04:12→20:44)
[2016-08-08] MEDS: Ondansetron 4 MG/2 ML VIAL IVP PRN ×2 (04:12→13:45)
[2016-08-08] MEDS: *HR* Heparin 5,000 UNIT/ML VIAL SQ SCH ×2 (05:39→17:24)
[2016-08-08] MEDS ORDERED: *HR* Promethazine 25 MG/ML VIAL ONE (05:47)
[2016-08-08] MEDS: *HR* Promethazine 25 MG/ML VIAL IVP ONE ×2 (06:05→08:47)
[2016-08-08] MEDS: Magnesium Oxide 400 MG TABLET PO SCH ×2 (08:47→20:44)
[2016-08-08] MEDS: 0.9 % Sodium Chloride 1,000 ML IVC SCH ×2 (08:48→17:13)
[2016-08-08] MEDS: *HR* Ticagrelor 90 MG TABLET PO SCH ×2 (08:48→20:44)
[2016-08-08] MEDS: Aspirin 81 MG TAB.CHEW PO SCH (08:48)
[2016-08-08] MEDS ORDERED: *HR* Acetylcysteine 20% 600 MG/3 ML ORAL SYRINGE PO SCH (12:30)
[2016-08-08] MEDS ORDERED: MethylPREDNISolone 40 MG/ML VIAL IVP SCH (12:35)
--- NOTE | 2016-08-08 12:38 | Cardiology Progress Note ---
Date of Encounter: 08/08/16 Time of Encounter: 11:00 Assessment and Plan (1) ST elevation myocardial infarction (STEMI) Current Visit: Yes Status: Acute Per cardiology: -Patient presented with acute STEMI. -Emergent LHC with 1 SONIDO to proximal LAD. -Per discussion with no other intervention needed, no official cath report to review at this time. -RIght radial access site. -CUrrently chest pain free. -Denies previous history of CAD. -ON asa, statin, and brilinta, beta marc. -BPs 100-110s. -Sinus tachycardic, average HR 107. -Echo with LVEF 35%, modersate LV systolic dysfunction with regional variations , indeterminate diastolic function, RV normal size, mid to distally it is small and possibly compressed externally, mild to moderate tricuspid regugitation, mild pulmonic regurgitation, mild pulmoney hypertension, apex, apical inferior, apical anterior, apical septal, apical lateral, mid anterior septal, and basal anterior septal coker hypokinetic, all other coker segments with normal motion. -Of note, per patient's primary RN, family concerned about patient's ability to safely manage her care once she goes home. student services advisor has been consulted. -Will transfer out of ICU today. -Will continue to monitor. -Recommend dual anti-platelet therapy for at least one year un-interrupted. Qualifiers: Involved coronary artery: LAD coronary artery Qualified Code(s): I21.02 - ST elevation (STEMI) myocardial infarction involving left anterior descending coronary artery (2) Non-sustained ventricular tachycardia Current Visit: Yes Status: Acute Per cardiology: -Non-sustained ventricular tachycardia in the setting post STEMI and intervention per telemetry. -Of note, previous 12 hour telemetry reviewed with no non-sustained ventricular tachycardia noted. Patient did have PVCs and 3 couplet PVCs noted. -Mg noted to be 1.4 on admission. Replaced. -Mg today 2.0. -Will continue to monitor. (3) Hypomagnesemia Current Visit: Yes Status: Acute Per cardiology: -Mg 1.4 on admission. -Mg rider given. -Mg today 2.0. -Will continue to monitor. (4) Urinary pain Current Visit: Yes Status: Acute Per cardiology: -Patient reports burning with urination. -States she was taking over the counter medications to relieve symptoms. -Of note, urine culture positive for gram negative jaron. -On ATB. -Appreciate hospitalist service input. (5) Renal cancer Current Visit: Yes Status: Suspected Per cardiology: -Patient reports history of renal cancer. -Patient reports she has declined further work up or intervention for cancer. -Per review from in 2013, patient was still thinking about treatment or work up. Of note, it does not appear that patient has had biopsy of mass. She did have MRI in 2013 with 4cm left renal mass. It appears that patient has not followed with since. -Per my discussion with patient, patient still declines further testing or intervention for possible renal cancer. Patient aware of possible cancer, potential metastasis, and risk of . Patient still declines further intervention. Discussed at length with son and [id number]. -Appreciate hospitalist input. Qualifiers: Laterality: left Qualified Code(s): C64.2 - Malignant neoplasm of left kidney, except renal pelvis (6) Hemoptysis Current Visit: Yes Status: Acute Per cardiology: -Patient now with hemoptysis -Apparent clot noted on bedside table in specimen container. -Unable to stop asa or brilinta due to recent SONIDO. -Possible external compression of RV on echocardiogram. Concerning with history of renal cancer. -CHest CT ordered per pulmonary service. -Hemoglobin today 11.8. -Pulmonary services has been consulted. Discussed with . Discussion w patient/family: The assessment and plan as outlined above was discussed with the patient and family who expressed understanding and agreement. All questions were answered. Thank you for involving us in the care of your patient. Please call with any questions. Discussed and reviewed with . Subjective Principal diagnosis: STEMI Interval history: Patient presented to [facility] with complaints of chest and left arm pain that occurred about 1-2 hours before presentation. ECG in squad concerning for STEMI , patient was evaluated in ER and ECG was repeated. STEMI alert notified. Patient was taken emergently to label operator for C. Patient received 1 drug- eluding stent to proximal LAD. Per discussion with , no other intervention was needed. Patient currently chest pain free. Denies issues using right wrist. Patient complained of urinary symtpoms and productive cough yesterday with yellow sputum. Hospitalist services were consulted yesterday. Today patient complains of hemoptysis. Patient states this started overnight. Of note, there is a specimen sitting on bedside table that appears to be a clot. Family at bedside during assessment. All questions answered. Objective Vital Signs, Last 4 Hours Pulse Resp BP Pulse Ox 08/08/16 11:00 100 20 97/68 93 08/08/16 10:13 112 20 102/74 93 08/08/16 09:00 108 20 115/78 93 General: Conversant, No Apparent Distress HEENT: Atraumatic, Normocephaly, Mucus Membranes Moist Neck: No JVD, Normal carotid pulses Cardiac: Reg Rate and Rhythm, Normal S1 and S2, No Murmur Lungs: Normal Breath Sounds, No Wheeze, Rales, Rhonchi Neuro: Alert and responsive, No focal deficits noted Abdomen: Soft, Non-Tender Skin: No rashes noted on visualized skin, Other (Right radial access site with no ecchymosis or hemtoma. ) Musculoskeletal: No Chest Wall Tenderness Extremities: No Clubbing, No Cyanosis, No Edema, Normal Pulses Results 08/08/16 02:57 08/08/16 02:57 Lab Results Active Medications Acetaminophen (Tylenol) 500 mg PO Q6HR PRN PRN Reason: Mild Pain Stop: 02/05/17 20:28 Acetaminophen/Hydrocodone Bitart ([place] 5-325 Mg) 1 tab PO Q4HR PRN PRN Reason: Moderate Pain Stop: 02/05/17 20:31 Last Admin: 08/07/16 11:35 Dose: 1 tab Albuterol/Ipratropium (Duoneb) 3 ml IH [id number] JOSH PRN Reason: Protocol Stop: 02/07/17 16:01 Aspirin (Aspirin) 81 mg PO DAILY JOSH Stop: 02/06/17 09:01 Last Admin: 08/08/16 08:48 Dose: 81 mg Atorvastatin Calcium (Lipitor) 80 mg PO HS JOSH Stop: 02/05/17 21:01 Last Admin: 08/07/16 20:42 Dose: 80 mg Budesonide/Formoterol Fumarate (Symbicort) 2 puff IH BIDR JOSH PRN Reason: Protocol Stop: 02/07/17 22:01 Diphenhydramine HCl (Benadryl) 25 mg PO HS PRN PRN Reason: Insomnia Stop: 02/05/17 20:31 Heparin Sodium (Porcine) (Heparin) 5,000 unit SQ Q12HR JOSH Stop: 02/06/17 06:01 Last Admin: 08/08/16 05:39 Dose: 5,000 unit Sodium Chloride (0.9 % Sodium Chloride) 1,000 mls @ 100 mls/hr IVC .Q10H [facility] Stop: 02/06/17 12:31 Last Admin: 08/08/16 08:48 Dose: Not Given Levofloxacin/Dextrose (Levaquin Premix 750mg/150 Ml) 750 mg in 150 mls @ 100 mls/hr IVPB Q24H JOSH PRN Reason: Protocol Stop: 02/06/17 13:01 Last Admin: 08/08/16 12:14 Dose: 100 mls/hr Magnesium Oxide (Mag-Ox) 400 mg PO BID JOSH PRN Reason: Protocol Stop: 02/06/17 12:46 Last Admin: 08/08/16 08:47 Dose: 400 mg Methylprednisolone (Solu-Medrol) [address] [facility] Stop: 02/07/17 12:35 Metoprolol Tartrate (Lopressor) 12.[address] [facility] Stop: 02/06/17 10:16 Last Admin: 08/08/16 08:47 Dose: 12.5 mg Morphine Sulfate (Morphine Sulfate) 4 mg IVP Q3H PRN PRN Reason: Severe Pain (7-10) Stop: 02/05/17 20:28 Last Admin: 08/07/16 22:15 Dose: 4 mg Nitroglycerin (Nitroglycerin) 0.4 mg SL Q5MIN PRN PRN Reason: Chest Pain Stop: 02/05/17 20:31 Ondansetron HCl (Zofran) 4 mg IVP Q8HR PRN PRN Reason: Nausea And Vomiting Stop: 02/05/17 20:28 Last Admin: 08/08/16 04:12 Dose: 4 mg Ticagrelor (Brilinta) [address] [facility] Stop: 02/05/17 21:01 Last Admin: 08/08/16 08:48 Dose: 90 mg Laboratory Tests 08/06/16 08/06/16 08/06/16 18:24 18:24 18:24 WBC 14.2 H Hgb 14.5 Potassium Creatinine Magnesium 1.4 L Troponin I 1.76 H* 08/08/16 08/08/16 02:57 02:57 WBC 12.4 H Hgb 11.6 Potassium 4.8 H Creatinine 0.74 Magnesium 2.0 Troponin I - Imaging and Cardiology Chest Xray: report reviewed Echo: report reviewed Cardiac cath: report reviewed - EKG Interpretation EKG results cardiology: other (Telemetry reviewed with average HR previosu 12 hours noted to be 107, sinus tachycardia. PVCs noted. 3 couplet PVCs noted.) Consult Discharge Plan - Plan Referrals: Hillary Renteria CNP [Primary Care Provider] -
--- NOTE | 2016-08-08 12:40 | Internal Med Progress Note ---
Date of Encounter: 08/08/16 Time of Encounter: 12:40 - Assessment and plan (1) ST elevation myocardial infarction (STEMI) Current Visit: Yes Status: Acute Assessment and plan: Management per cardiology, primary team Qualifiers: Involved coronary artery: LAD coronary artery Qualified Code(s): I21.02 - ST elevation (STEMI) myocardial infarction involving left anterior descending coronary artery (2) Hypomagnesemia Current Visit: Yes Status: Acute Assessment and plan: Mag today 2.0, continue to monitor 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, except renal pelvis (5) UTI (urinary tract infection) Current Visit: Yes Status: Acute Assessment and plan: Continue Levaquin, Urine with GNR, follow final urine culture result Qualifiers: Urinary tract infection type: acute cystitis Hematuria presence: with hematuria Qualified Code(s): N30.01 - Acute cystitis with hematuria (6) COPD (chronic obstructive pulmonary disease) Current Visit: Yes Status: Acute Assessment and plan: Continue nebs and O2 supplements, initial CXR unremarkable for infiltrates Patient now has hemoptysis, follow CT scan of the chest Pulmonology has been consulted by cardiology Qualifiers: COPD type: emphysema Emphysema type: unspecified Qualified Code(s): J43.9 - Emphysema, unspecified (7) Hypotension Current Visit: Yes Status: Acute Assessment and plan: Continue IVF hydration Qualifiers: Hypotension type: unspecified hypotension type Qualified Code(s): I95.9 - Hypotension, unspecified (8) Sepsis Current Visit: Yes Status: Acute Assessment and plan: Secondary to UTI, Tachycardic , BP low but maintaining her MAP Leukocytosis is improving, continue to follows May consult ID in the near future if culture report is complicated and patient shows no improvement Qualifiers: Sepsis type: sepsis due to unspecified organism Qualified Code(s): A41.9 - Sepsis, unspecified organism (9) Hemoptysis Current Visit: Yes Status: Acute Assessment and plan: Follow CT scan/Pulm eval - Subjective Interval history: Seen and evaluated at bedside with family Medicine was consulted for management of sepsis, suspected UTI, bronchitis Patient and family endorsed hemoptysis started prior to admission and has been worsening, Cardiology team has ordered a CT scan of the chest, Admitting CXR was unremarkable for acute processes Patient is a smoker BP is improving, she remains tachycardic, at time of review, no resp distress Per family, Patient is DNR/DNI - Constitutional Vitals: Temp Pulse Resp BP Pulse Ox 98.4 F 100 20 97/68 93 08/08/16 08:00 08/08/16 11:00 08/08/16 11:00 08/08/16 11:00 08/08/16 11:00 General appearance: Present: A&O X 3, pleasant, no acute distress - Head Head exam: Present: atraumatic, normocephalic - Eye Eye exam: Present: PERRL, conjuntiva pink, sclera anicteric Pupils: Present: PERRL - Neck Neck exam general surgery: Present: supple, trachea midline. Absent: lymphadenopathy - Respiratory Respiratory exam: Present: CTAB. Absent: accessory muscle use, rales, rhonchi, wheezes - Cardiovascular Cardiovascular exam: Present: RRR, +S1, +S2. Absent: diastolic murmur, gallop, rubs, systolic murmur - GI/Abdominal GI/Abdominal exam: Present: normal bowel sounds, soft, no peritoneal signs. Absent: distended, tenderness - Extremities Exam Extremities exam: Present: warm, radial pulses palpable and symetrical. Absent : calf tenderness, cyanotic, pedal edema - Neurological Exam Neurological exam: Present: alert, CN II-XII intact, oriented X3, no focal deficits. Absent: pronater drift, facial droop, speech deficit - Skin Skin exam: Present: dry, intact Internal Medicine: Result - Labs CBC & Chem 7: 08/08/16 02:57 08/08/16 02:57 Labs: Short CBC 08/08/16 08/08/16 Range/Units 02:57 02:57 WBC 12.4 H 12.4 H (4.3-11.1) K/mcL Hgb 11.6 11.8 (11.5-15.4) g/dL Hct 35.4 35.0 L (35.3-44.9) % Plt Count 294 285 (140-400) K/mcL Neutrophils # 11.0 H (1.6-8.9) K/mcL BMP 08/07/16 08/08/16 15:13 02:57 Sodium 136 135 L Potassium 4.4 4.8 H Chloride 103 103 Carbon Dioxide 20 24 BUN 17 17 Creatinine 0.84 0.74 Glucose 138 H 142 H Calcium 8.2 L 8.4 L - ABG Interpretation ABG results: PT/INR, D-dimer PT 10.4 Seconds (9.4-12.1) 08/06/16 18:24 Consult Discharge Plan - Plan Referrals: Hillary Renteria, [facility] [Primary Care Provider] -
[2016-08-08] MEDS ORDERED: Levofloxacin 750 MG/150 ML 750 MG/150 ML BAG IVPB SCH (13:00)
[2016-08-08] MEDS ORDERED: MethylPREDNISolone 40 MG/ML VIAL IVP ONE (14:00)
--- NOTE | 2016-08-08 15:03 | Pulmonology Consult Note ---
<Nicko Biggs - Last Filed: 08/08/16 16:10> Date of Encounter: 08/08/16 Time of Encounter: 15:03 Assessment and Plan (1) Hemoptysis Current Visit: Yes Status: Acute reports hemoptysis started during admission hemoglobin downtrending 11.8 from 14.5 on admission - continue to monitor differential includes lung malignancy, cardiac failure, PE, vasculitis, infectious, alveolar hemorrhage, and autoimmune suspect this is medication induced denies a history of blood clots history of untreated renal carcinoma CT Chest 08/08 - bilateral lower lobe airspace consolidations compatible with multifocal pneumonia and/or aspiration with underlying severe upper lung emphysema and bilateral pleuroparenchymal scarring - due to recent STEMI and PCI, high likelihood of alveolar hemorrhage as well with ASA, Berlinta, and Aggrastat patient is high risk for bronchoscopy due to recent medical events as the risks do not outweigh benefits patient has been afebrile but productive coughs prior to admission symptoms have been improving, recommend to treat as CAP with Levaquin which she is already on for UTI likely component of COPD as well - scheduled bronchodilators and steroids Plan: continue Levaquin for UTI and dual coverage for CAP continue to monitor hemoptysis, appears to be improving risks do not outweigh benefits for bronchoscopy due to recent IL (2) COPD (chronic obstructive pulmonary disease) Current Visit: Yes Status: Acute Pack per day smoker continue duonebs and O2 supplementation CT chest 08/08 - emphysema Qualifiers: COPD type: emphysema Emphysema type: unspecified Qualified Code(s): J43.9 - Emphysema, unspecified (3) Renal cancer Current Visit: Yes Status: Suspected History of renal carcinoma not pursuing treatment her any further investigation at this time CT chest 08/08 - reveals partial visualization of left renal mass suspicious for RCC Qualifiers: Laterality: left Qualified Code(s): C64.2 - Malignant neoplasm of left kidney, except renal pelvis (4) ST elevation myocardial infarction (STEMI) Current Visit: Yes Status: Acute Cardiology following s/p SONIDO to proximal LAD on Aspirin and Berlinta Qualifiers: Involved coronary artery: LAD coronary artery Qualified Code(s): I21.02 - ST elevation (STEMI) myocardial infarction involving left anterior descending coronary artery (5) DVT prophylaxis Current Visit: Yes Status: Acute Heparin SQ for DVT prophylaxis continue to monitor hgb History of Present Illness Consult date: 08/08/16 Requesting physician: Valeria Amin Reason for consult: other (Hemoptysis) Chief complaint: Chest pain History of present illness: uPshpa is a 81-year-old female who was admitted for anterior STEMI s/p PCI with SONIDO in the proximal LAD on 08/07. She has been recovering well here in ICU. Pulmonology was consulted for complaints of hemoptysis. Family is at bedside to assist with history. Appears patient's history changes. She reports hemoptysis starting at the beginning of her admission here. There are reports that it may have began prior to the admission. Family is unable to confirm that as she lives by her self here in [place]. She describes that hemoptysis as mucous plugs that is blood tinged. Reports up to 20 episodes today. There is one severe episode where it appeared to be armani blood that saturated her gown. Patient has been afebrile during her stay. Reports prior to admission she has been coughing quite frequently bring up lots of mucus. Denies any recent illness, fevers or chills at home. Denies frequent nosebleeds, bloody stools or black tarry stools. Denies any chest pain or abdominal pain. She reports baseline shortness of breath over the last 6 to 8 months. Today she is has some associated nausea as well vomiting. She is a pack per day smoker. She does use inhalers at home. Does not use any home oxygen supplementation. Some reports that her house is very unkept and concern for possible mold. She currently is on Aspirin and Berlinta into for her stent as well as heparin for DVT prophylaxis. She reports a history of renal carcinoma has been untreated for several years diagnosed in 2012. She does not wish for any aggressive treatments or intervention at this time. Denies any history of blood clots, major surgery, trauma, long distance travel. Denies any incarceration or tuberculosis exposure. Besides the left heart catheterization no major procedures performed. She has a history of frequent UTIs. Past Med Surg Social Fam HX - Past Medical History Medical history: cancer (Left renal carcinoma diagnosed in 2012, does not wish to have further diagnostic testing or treatment), COPD (Not oxygen dependent), GERD, hypertension, other (Breast benign tumor status post left lumpectomy, liver cysts, tobacco use, diverticulosis, emphysema, vertigo, hypertension) Psychiatric history: no psych history - Past Surgical History Surgical History: other (Partial hysterectomy, left breast lumpectomy, right foot surgery and eye surgery) - Social History Smoking Status: Current every day smoker Packs per day: One pack per day Smokeless Tobacco Status: No Alcohol use: none Drug use: none Medications and Allergies Albuterol Neb [Proventil Neb] 2.5 mg IH Q4HR PRN 08/07/16 [History] Albuterol Sulfate [Proventil Hfa] 2 puff IH Q4H PRN 08/07/16 [History] Budesonide/Formoterol 160/4.5 [Symbicort 160/4.5] 2 puff IH BIDR 08/07/16 [ History] Bupropion HCl [Wellbutrin Xl] 300 mg PO QAM 08/07/16 [History] Guaifenesin [Mucinex] 600 mg PO BID PRN 08/07/16 [History] HYDROcodone/Acet 5/325 mg [Mutual 5-325 mg] 1 tab PO Q6H PRN 08/07/16 [History] Metoprolol XL (24 HR) Succ [Toprol XL] 25 mg PO DAILY 08/07/16 [History] Promethazine [Phenergan] 25 mg PO Q8HR PRN 08/07/16 [History] Vit C/Vit E/Lutein/Min/[place]-3 [Ocuvite Softgel] 1 cap PO DAILY 08/07/16 [ History] Allergies Influenza Virus Vaccines Allergy (Verified 08/06/16 18:28) Hives - Constitutional Constitutional: fatigue, no fever(s) - EENT Nose, mouth and throat: no epistaxis, no nasal trauma, no odynophagia, no sore throat - Cardiovascular Cardiovascular: dyspnea, no chest pain - Respiratory Respiratory: cough, hemoptysis, excessive phlegm production - Gastrointestinal Gastrointestinal: nausea, no abdominal pain, no diarrhea, no hematochezia, no melena, no vomiting - Genitourinary Genitourinary: dysuria, no hematuria Physical Examination Vital Signs: Vital Signs, Last 4 Hours Temp Pulse Resp BP Pulse Ox 08/08/16 14:00 106 20 97/69 96 08/08/16 13:00 98 20 108/76 99 08/08/16 12:00 97.8 F 99 20 108/73 99 General appearance: alert, agitated, appears uncomfortable (Moderate respiratory distress) Eyes: nonicteric, other (PERRL) ENT: oropharynx dry, other (Oropharynx clear ) Effort: mildly labored ( ) Inspection: normal Auscultation: bilateral: diminished breath sounds Cardiovascular: regular rate and rhythm Gastrointestinal: normoactive bowel sounds, soft, non-tender, non-distended Integumentary: normal Extremities: no edema, pulses normal Musculoskeletal: no deformities, ROM normal normal mental status, non-focal exam, pupils equal and round depressed Results - Laboratory Findings CBC and BMP: 08/08/16 02:57 08/08/16 02:57 PT/INR, D-dimer PT 10.4 Seconds (9.4-12.1) 08/06/16 18:24 Abnormal lab findings: Abnormal lab results WBC 12.4 K/mcL (4.3-11.1) H 08/08/16 02:57 RBC 3.47 M/mcL (3.82-4.97) L 08/08/16 02:57 Hct 35.0 % (35.3-44.9) L 08/08/16 02:57 MCV 100.9 fL (83.0-100.0) H 08/08/16 02:57 MCH 34.0 pg (28.0-33.3) H 08/08/16 02:57 Neutrophils # 11.0 K/mcL (1.6-8.9) H 08/08/16 02:57 APTT 24.2 Seconds (26.0-36.0) L 08/06/16 18:24 Sodium 135 mEq/L (136-145) L 08/08/16 02:57 Potassium 4.8 mEq/L (3.5-4.5) H 08/08/16 02:57 Glucose 142 mg/dL (70-99) H 08/08/16 02:57 POC Glucose 132 (58-89) H 08/06/16 20:47 Calcium 8.4 mg/dL (8.6-10.8) L 08/08/16 02:57 Troponin I 1.76 ng/mL (0-0.03) H* 08/06/16 18:24 Urine Color [place] (Yellow) A 08/07/16 11:08 Urine Clarity Turbid (Clear) A 08/07/16 11:08 Ur Specific [place] > 1.030 (1.010-1.025) H 08/07/16 11:08 Urine Blood Moderate (Negative) H 08/07/16 11:08 Urine Nitrite Positive (Negative) A 08/07/16 11:08 Ur Leukocyte Esterase Large (Negative) H 08/07/16 11:08 Urine Microscopic RBC 5-15 per hpf (0-3) H 08/07/16 11:08 Urine Microscopic WBC TNTC per hpf (0-3) H 08/07/16 11:08 Ur Squamous Epith Cells Moderate per lpf (None-Few) H 08/07/16 11:08 Urine Bacteria Many per hpf (None-Few) H 08/07/16 11:08 Ur Culture Indicated? YES (NO) A 08/07/16 11:08 - Microbiology Findings Microbiology Findings: Microbiology, Last 48 Hours 08/07/16 11:08 Urine Culture - Preliminary Urine,Clean Catch Gram Negative Jeremy - Diagnostic Findings CT scan - chest: report reviewed, image reviewed Additional studies: Chest X-Ray 08/06/16 18:19 IMPRESSION: 1. No acute process. 2. COPD. D/ / Torito Talley MD / Torito Talley MD Interpreting Provider: Torito Talley MD - Clinical Findings Intake & Output: Intake & Output 08/07/16 08/08/16 08/08/16 23:59 07:59 15:59 Intake Total 450 / 450 Output Total 300 / 300 Balance 450 / 450 -300 / -300 Weight 83.143 kg Consult Discharge Plan - Plan Referrals: Hillary Renteria, WAITER/WAITRESS FORMAL [Primary Care Provider] - <Roni Gonzalez - Last Filed: 08/08/16 16:56> Date of Encounter: 08/08/16 All Systems: A 10-system review of systems was performed and is negative for pertinent findings except as documented above in the HPI. Physical Examination Vital Signs: Vital Signs, Last 4 Hours Temp Pulse Resp BP Pulse Ox 08/08/16 16:00 98.2 F 103 20 110/70 93 08/08/16 15:45 18 97 08/08/16 15:00 112 20 113/87 97 08/08/16 14:00 106 20 97/69 96 08/08/16 13:00 98 20 108/76 99 Results - Laboratory Findings CBC and BMP: 08/08/16 02:57 08/08/16 02:57 PT/INR, D-dimer PT 10.4 Seconds (9.4-12.1) 08/06/16 18:24 Abnormal lab findings: Abnormal lab results WBC 12.4 K/mcL (4.3-11.1) H 08/08/16 02:57 RBC 3.47 M/mcL (3.82-4.97) L 08/08/16 02:57 Hct 35.0 % (35.3-44.9) L 08/08/16 02:57 MCV 100.9 fL (83.0-100.0) H 08/08/16 02:57 MCH 34.0 pg (28.0-33.3) H 08/08/16 02:57 Neutrophils # 11.0 K/mcL (1.6-8.9) H 08/08/16 02:57 APTT 24.2 Seconds (26.0-36.0) L 08/06/16 18:24 Sodium 135 mEq/L (136-145) L 08/08/16 02:57 Potassium 4.8 mEq/L (3.5-4.5) H 08/08/16 02:57 Glucose 142 mg/dL (70-99) H 08/08/16 02:57 POC Glucose 132 (58-89) H 08/06/16 20:47 Calcium 8.4 mg/dL (8.6-10.8) L 08/08/16 02:57 Troponin I 1.76 ng/mL (0-0.03) H* 08/06/16 18:24 Urine Color [place] (Yellow) A 08/07/16 11:08 Urine Clarity Turbid (Clear) A 08/07/16 11:08 Ur Specific [place] > 1.030 (1.010-1.025) H 08/07/16 11:08 Urine Blood Moderate (Negative) H 08/07/16 11:08 Urine Nitrite Positive (Negative) A 08/07/16 11:08 Ur Leukocyte Esterase Large (Negative) H 08/07/16 11:08 Urine Microscopic RBC 5-15 per hpf (0-3) H 08/07/16 11:08 Urine Microscopic WBC TNTC per hpf (0-3) H 08/07/16 11:08 Ur Squamous Epith Cells Moderate per lpf (None-Few) H 08/07/16 11:08 Urine Bacteria Many per hpf (None-Few) H 08/07/16 11:08 Ur Culture Indicated? YES (NO) A 08/07/16 11:08 - Microbiology Findings Microbiology Findings: Microbiology, Last 48 Hours 08/07/16 11:08 Urine Culture - Preliminary Urine,Clean Catch Gram Negative Jeremy - Clinical Findings Intake & Output: Intake & Output 08/08/16 08/08/16 08/08/16 07:59 15:59 23:59 Output Total 300 / 300 Balance -300 / -300 Weight 83.143 kg - Attending Attestation I examined this patient and my medical decision-making was reviewed with the BEFORE SCHOOL BABYSITTER/PA/Advanced Practice Nurse/Resident Physician. I agree with the documented findings, disposition and treatment plan as described except to the extent set forth below. Patient seen and examined. Labs, radiology, chart personally reviewed. Agree with resident's history and physical, assessment, plan with following comments: RESTORATIVE REHAB AIDE: Patient follows commands, Pulmonary: Acceptable oxygenation and ventilation. Patient has significant smoking tobacco history and with hemoptysis which is not massive based on her description. Differential diagnosis pulmonary hemorrhage from medications versus pneumonia versus COPD exacerbation and less likely malignancies. Discussed with patient as well as her family and cardiology team that are brisk of bronchoscopy outweigh the benefits at this time for that reason we will wait and have patient to be on only liquid diet and if her bleeding worsen then we will rediscuss with her about the procedure. Treat patient with higher dose all systemic steroid as well as antibiotic and bronchodilators. Patient has history of renal cell malignancy and sometimes there could be an endobronchial lesion which is not seen on the CT chest. Cardiovascular: Her cardiology management GI: Nutrition per dietary and GI prophylaxis per routine Heme: DVT prophylaxis per routine. Monitor H&H ID: Continue antibiotics and plan to de-escalation Renal; urine out put and renal funtion reviewed Endorcine: blood glucose is monitored Lines: all lines checked and no evidence of infections Skin: skin care to prevent pressure ulcers per nursing routine care Keep patient in ICU because her condition could deteriorate. Thank you very much for allowing us to participate in care for this pleasant patient. Overall prognosis is poor. Critical care performed: Time is exclusive of separately billable procedures. Time includes: direct patient care, patient reassessment, coordination of patient care, interpretation of data (laboratory data, radiology data, and respiratory data), review of patient's medical records, medical consultation and documentation of patient care. Procedures excluded from critical care time: 35 minutes
[2016-08-08] MEDS: Ipratropium/Albuterol Neb 3 ML IH SCH ×3 (15:44→23:56)
--- NOTE | 2016-08-08 17:57 | Electrocardiograph Report ---
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
--- NOTE | 2016-08-08 17:58 | Electrocardiograph Report ---
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
--- NOTE | 2016-08-08 18:08 | Electrocardiograph Report ---
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
--- NOTE | 2016-08-08 18:13 | Electrocardiograph Report ---
[address] [place], [place] [address] Test Date: 2016-08-07 Pat Name: Pushpa Bernardo Department: 109 Room: [facility] Gender: F Signal Operator: : 1935 Requested By: Da Byers Order Number: [id number] Reading MD: Jennifer Mata Measurements Intervals [place] Rate: 101 P: ID: 0 QRS: 53 QRSD: 73 T: 88 QT: 332 QTc: 390 Interpretive Statements SINUS TACHYCARDIA LOW QRS VOLTAGE POSSIBLE ANTERIOR MYOCARDIAL INFARCTION, OF INDETERMINATE AGE Electronically Signed On 08-08-2016 18:11:57 EDT by Jennifer Mata
[2016-08-08] MEDS: *HR* Morphine 2 MG/ML SYRINGE IVP PRN (18:14)
[2016-08-08] MEDS: Budesonide/Formoterol 80/4.5 MDI IH SCH ×2 (20:38→20:42)
[2016-08-09 03:25] LABS: Basophils % 0.1 %; Hematocrit 33.9 % (35.3-44.9); Hemoglobin 11.3 g/dL (11.5-15.4); Immature Granulocytes % 0.6 % (0-4); Lymphocytes # 0.9 K/mcL (0.6-4.6); Lymphocytes % 6.5 %; Mean Corpuscular HGB Conc 33.3 g/dL (31.6-35.5); Mean Corpuscular Hemoglobin 33.9 pg (28.0-33.3); Mean Corpuscular Volume 101.8 fL (83.0-100.0); Mean Platelet Volume 10.3 fL (9.4-12.4); Monocytes # 0.4 K/mcL (0.0-1.3); Monocytes % 3.2 %; Neutrophils # 12.2 K/mcL (1.6-8.9); Platelet Count 299 K/mcL (140-400); Red Blood Count 3.33 M/mcL (3.82-4.97); Red Cell Distribution Width 12.5 % (11.5-14.5); Segmented Neutrophils % 89.6 %
[2016-08-09] MEDS: Ipratropium/Albuterol Neb 3 ML IH SCH ×6 (03:38→22:59)
[2016-08-09 03:45] LABS: BUN/Creatinine Ratio 35 (6-26); Calcium 8.3 mg/dL (8.6-10.8); Carbon Dioxide 24 mEq/L (19-29); Chloride 102 mEq/L (98-109); Glucose 148 mg/dL (70-99); Osmolality,Calculated 291 (280-300); Potassium 4.8 mEq/L (3.5-4.5); Sodium 136 mEq/L (136-145); eGFR For African Americans > 60 (> 60); eGFR For Non-African Americans > 60 (> 60)
[2016-08-09 03:46] LABS: Blood Urea Nitrogen 29 mg/dL (7-20)
[2016-08-09] MEDS: MethylPREDNISolone 40 MG/ML VIAL IVP SCH ×2 (05:30→11:41)
[2016-08-09] MEDS: *HR* Morphine 2 MG/ML SYRINGE IVP PRN (05:40)
[2016-08-09] MEDS: 0.9 % Sodium Chloride 1,000 ML IVC SCH (05:58)
[2016-08-09] MEDS: *HR* Ticagrelor 90 MG TABLET PO SCH ×2 (08:22→21:20)
[2016-08-09] MEDS: Magnesium Oxide 400 MG TABLET PO SCH ×2 (08:22→21:21)
[2016-08-09] MEDS: Aspirin 81 MG TAB.CHEW PO SCH (08:23)
--- NOTE | 2016-08-09 08:23 | Pulmonology Progress Note ---
<Quyen Hartley - Last Filed: 08/09/16 08:20> Date of Encounter: 08/09/16 Time of Encounter: 08:22 Assessment and Plan (1) Hemoptysis Current Visit: Yes Status: Acute Pulmonology consulted due to hemoptysis that started around admission. Per her report, did not appear to be a massive amount. Today, patient reports no hemoptysis overnight. Hemoglobin stable at 11.3 (11.8). CT chest (08/08) showed BL lower lobe airspace consolidations compatible with multifocal pneumonia and/or aspiration with underlying sever upper lung emphysema and LB pleuroparenchymal scarring. Differential diagnosis includes pulmonary hemorrhagesecondary to medications, COPD exacerbation, pneumonia or possibly lung malignancy. As discussed with family yesterday, patient is extremely high risk for a bronchoscopy due to her acute ND and the risks do not outweigh the benefits. Also, as the hemoptysis has currently resolved, will not pursue bronch at this time. 1. Will advance patient back to cardiac diet as we are not going to bronch 2. Continue to monitor for hemoptysis and follow hemoglobin 3. Heparin stopped yesterday, patient on SCDs for DVT ppx. Continue ASA and brilinta. (2) COPD (chronic obstructive pulmonary disease) Current Visit: Yes Status: Acute Patient with known COPD, currently 1ppd smoker. Possible underlying COPD exacerbation. Patient reports a productive cough prior to admission, possible community acquired pneumonia. She is currently on Levaquin for a UTI and dual coverage for the CAP. On scheduled bronchodilators and systemic steroids. 1. Continue Levaquin for UTI and dual coverage for CPAP 2. Duonebs scheduled 3. Continue solu-medrol 80mg Q8H Qualifiers: COPD type: emphysema Emphysema type: unspecified Qualified Code(s): J43.9 - Emphysema, unspecified (3) ST elevation myocardial infarction (STEMI) Current Visit: Yes Status: Acute Patient admitted for anterior STEMI now s/p PCI with SONIDO in the proximal LAD . Cardiology is primary team. 1. Cardiology is primary team 2. Continue ASA and Brilinta Qualifiers: Involved coronary artery: LAD coronary artery Qualified Code(s): I21.02 - ST elevation (STEMI) myocardial infarction involving left anterior descending coronary artery (4) Renal cancer Current Visit: Yes Status: Suspected Patient with history of renal carcinoma. CT chest 08/08 revealed partial viscalization of left renal mass suspicious for RCC. She is not pursuing treatment at this time. Qualifiers: Laterality: left Qualified Code(s): C64.2 - Malignant neoplasm of left kidney, except renal pelvis (5) DVT prophylaxis Current Visit: Yes Status: Acute SCDs for DVT prophylaxis. Subjective Principal diagnosis: STEMI Interval history: No acute events overnight. This morning patient is awake and alert, conversing appropriately. She reports that she had no hemoptysis overnight. She also states that her breathing is "much better." Overall, patient states that she is doing pretty well and is just really hungry. Afebrile overnight. Heart rate around 100-105 this morning. RR 18. Blood pressure appropriate 100-110/60-70. O2 saturation 95% on 8L oxymask. On exam, lungs diminished bilaterally, no wheezing or rhonchi. Abdomen soft, non- tender. No pedal edema noted. Objective PUL Vital signs: Last Vital Signs Temp 97.7 F 08/09/16 07:35 Pulse 107 08/09/16 06:00 Resp 18 08/09/16 06:00 BP 100/65 08/09/16 06:00 Pulse Ox 95 08/09/16 06:00 General appearance: no acute distress, alert Eyes: nonicteric ENT: oropharynx moist Effort: normal Auscultation: bilateral: diminished breath sounds Cardiovascular: other (Tachycardic around 105bpm) Gastrointestinal: soft, non-tender, non-distended Integumentary: normal Extremities: no cyanosis, no edema normal mental status, non-focal exam mood appropriate, affect normal Results - Laboratory Findings CBC and BMP: 08/09/16 03:02 08/09/16 03:02 PT/INR, D-dimer PT 10.4 Seconds (9.4-12.1) 08/06/16 18:24 Abnormal lab findings: Abnormal lab results WBC 13.6 K/mcL (4.3-11.1) H 08/09/16 03:02 RBC 3.33 M/mcL (3.82-4.97) L 08/09/16 03:02 Hgb 11.3 g/dL (11.5-15.4) L 08/09/16 03:02 Hct 33.9 % (35.3-44.9) L 08/09/16 03:02 MCV 101.8 fL (83.0-100.0) H 08/09/16 03:02 MCH 33.9 pg (28.0-33.3) H 08/09/16 03:02 Neutrophils # 12.2 K/mcL (1.6-8.9) H 08/09/16 03:02 APTT 24.2 Seconds (26.0-36.0) L 08/06/16 18:24 Potassium 4.8 mEq/L (3.5-4.5) H 08/09/16 03:02 BUN 29 mg/dL (7-20) H D 08/09/16 03:02 BUN/Creatinine Ratio 35 (6-26) H 08/09/16 03:02 Glucose 148 mg/dL (70-99) H 08/09/16 03:02 POC Glucose 132 (58-89) H 08/06/16 20:47 Calcium 8.3 mg/dL (8.6-10.8) L 08/09/16 03:02 Troponin I 1.76 ng/mL (0-0.03) H* 08/06/16 18:24 Urine Color Alpine (Yellow) A 08/07/16 11:08 Urine Clarity Turbid (Clear) A 08/07/16 11:08 Ur Specific Bastian > 1.030 (1.010-1.025) H 08/07/16 11:08 Urine Blood Moderate (Negative) H 08/07/16 11:08 Urine Nitrite Positive (Negative) A 08/07/16 11:08 Ur Leukocyte Esterase Large (Negative) H 08/07/16 11:08 Urine Microscopic RBC 5-15 per hpf (0-3) H 08/07/16 11:08 Urine Microscopic WBC TNTC per hpf (0-3) H 08/07/16 11:08 Ur Squamous Epith Cells Moderate per lpf (None-Few) H 08/07/16 11:08 Urine Bacteria Many per hpf (None-Few) H 08/07/16 11:08 Ur Culture Indicated? YES (NO) A 08/07/16 11:08 - Microbiology Findings Microbiology Findings: Microbiology, Last 48 Hours 08/07/16 12:52 Blood Culture - Preliminary Peripheral Venipuncture No growth. 08/07/16 11:08 Urine Culture - Preliminary Urine,Clean Catch Gram Negative Jeremy - Clinical Findings Intake & Output: Intake & Output 08/08/16 08/09/16 08/09/16 23:59 07:59 15:59 Intake Total 270 / 270 Balance 270 / 270 Consult Discharge Plan - Plan Referrals: Hillary Renteria, BORING MACHINE OPERATOR [employer]ODUCTION [Primary Care Provider] - <Roni Gonzalez - Last Filed: 08/09/16 12:05> Date of Encounter: 08/09/16 Objective PUL Vital signs: Last Vital Signs Temp 97.7 F 08/09/16 11:13 Pulse 98 08/09/16 10:00 Resp 16 08/09/16 11:25 BP 102/65 08/09/16 10:00 Pulse Ox 93 08/09/16 11:25 Results - Laboratory Findings CBC and BMP: 08/09/16 03:02 08/09/16 03:02 PT/INR, D-dimer PT 10.4 Seconds (9.4-12.1) 08/06/16 18:24 Abnormal lab findings: Abnormal lab results WBC 13.6 K/mcL (4.3-11.1) H 08/09/16 03:02 RBC 3.33 M/mcL (3.82-4.97) L 08/09/16 03:02 Hgb 11.3 g/dL (11.5-15.4) L 08/09/16 03:02 Hct 33.9 % (35.3-44.9) L 08/09/16 03:02 MCV 101.8 fL (83.0-100.0) H 08/09/16 03:02 MCH 33.9 pg (28.0-33.3) H 08/09/16 03:02 Neutrophils # 12.2 K/mcL (1.6-8.9) H 08/09/16 03:02 APTT 24.2 Seconds (26.0-36.0) L 08/06/16 18:24 Potassium 4.8 mEq/L (3.5-4.5) H 08/09/16 03:02 BUN 29 mg/dL (7-20) H D 08/09/16 03:02 BUN/Creatinine Ratio 35 (6-26) H 08/09/16 03:02 Glucose 148 mg/dL (70-99) H 08/09/16 03:02 POC Glucose 132 (58-89) H 08/06/16 20:47 Calcium 8.3 mg/dL (8.6-10.8) L 08/09/16 03:02 Troponin I 1.76 ng/mL (0-0.03) H* 08/06/16 18:24 Urine Color Alpine (Yellow) A 08/07/16 11:08 Urine Clarity Turbid (Clear) A 08/07/16 11:08 Ur Specific Bastian > 1.030 (1.010-1.025) H 08/07/16 11:08 Urine Blood Moderate (Negative) H 08/07/16 11:08 Urine Nitrite Positive (Negative) A 08/07/16 11:08 Ur Leukocyte Esterase Large (Negative) H 08/07/16 11:08 Urine Microscopic RBC 5-15 per hpf (0-3) H 08/07/16 11:08 Urine Microscopic WBC TNTC per hpf (0-3) H 08/07/16 11:08 Ur Squamous Epith Cells Moderate per lpf (None-Few) H 08/07/16 11:08 Urine Bacteria Many per hpf (None-Few) H 08/07/16 11:08 Ur Culture Indicated? YES (NO) A 08/07/16 11:08 - Microbiology Findings Microbiology Findings: Microbiology, Last 48 Hours 08/07/16 11:08 Urine Culture - Final Urine,Clean Catch Escherichia coli 08/07/16 12:52 Blood Culture - Preliminary Peripheral Venipuncture No growth. - Clinical Findings Intake & Output: Intake & Output 08/08/16 08/09/16 08/09/16 23:59 07:59 15:59 Intake Total 270 / 270 Balance 270 / 270 - Attending Attestation I examined this patient and my medical decision-making was reviewed with the CREPE MACHINE OPERATOR/PA/Advanced Practice Nurse/Resident Physician. I agree with the documented findings, disposition and treatment plan as described except to the extent set forth below. Patient seen and examined. Labs, radiology, chart personally reviewed. 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 There is no significant hemoptysis. Continue bronchodilators as well as systemic steroid. Due to the risk of the procedure no plan for bronchoscopy unless this is absolutely necessary. However after 2-3 months may consider surveillant bronchoscopy. Cardiovascular: stable. GI: Nutrition per dietary and GI prophylaxis per routine. Diet since patient will not have the procedure Heme: DVT prophylaxis per routine ID: Continue antibiotics and plan to de-escalation Renal; urine out put and renal funtion reviewed Endorcine: blood glucose is monitored Lines: all lines checked and no evidence of infections Skin: skin care to prevent pressure ulcers per nursing routine care
[2016-08-09] MEDS: Budesonide/Formoterol 80/4.5 MDI IH SCH ×2 (08:35→20:01)
--- NOTE | 2016-08-09 09:55 | Cardiology Progress Note ---
Date of Encounter: 08/09/16 Time of Encounter: 09:00 Assessment and Plan (1) ST elevation myocardial infarction (STEMI) Current Visit: Yes Status: Acute Per cardiology: -Patient presented with acute STEMI. -Emergent LHC with 1 SONIDO to proximal LAD, 30% stenosis mid circ, OM 1 50%, 50% stenosis mid RCA. -RIght radial access site without hematoma or ecchymosis. -CUrrently chest pain free. -Denies previous history of CAD. -ON asa, statin, and brilinta, beta marc. -BPs 80-100s systolic. -AVerage HR previous 12 hours noted to be 98, sinus rhythm. -Echo with LVEF 35%, modersate LV systolic dysfunction with regional variations , indeterminate diastolic function, RV normal size, mid to distally it is small and possibly compressed externally, mild to moderate tricuspid regugitation, mild pulmonic regurgitation, mild pulmoney hypertension, apex, apical inferior, apical anterior, apical septal, apical lateral, mid anterior septal, and basal anterior septal coker hypokinetic, all other coker segments with normal motion. -Of note, per patient's primary RN, family concerned about patient's ability to safely manage her care once she goes home. cargo services coordinator has been consulted. -Will continue to monitor. -Recommend dual anti-platelet therapy for at least one year un-interrupted. Qualifiers: Involved coronary artery: LAD coronary artery Qualified Code(s): I21.02 - ST elevation (STEMI) myocardial infarction involving left anterior descending coronary artery (2) Non-sustained ventricular tachycardia Current Visit: Yes Status: Acute Per cardiology: -Non-sustained ventricular tachycardia in the setting post STEMI and intervention per telemetry, now resolved. -Of note, previous 12 hour telemetry reviewed with no non-sustained ventricular tachycardia noted. Patient did have PVCs noted. -Mg noted to be 1.4 on admission. Replaced. -Mg today 2.0 yesterday. -Now on Mg supplementation daily. -Will continue to monitor. (3) Hypomagnesemia Current Visit: Yes Status: Acute Per cardiology: -Mg 1.4 on admission. -Mg rider given. -Mg today 2.0 yesterday. -Now on Mg po supplementation. -Will continue to monitor. (4) Urinary pain Current Visit: Yes Status: Acute Per cardiology: -Patient reports burning with urination. -States she was taking over the counter medications to relieve symptoms. -Of note, urine culture positive for gram negative jaron. -On ATB. -Appreciate hospitalist service input. (5) Renal cancer Current Visit: Yes Status: Suspected Per cardiology: -Patient reports history of renal cancer. -Patient reports she has declined further work up or intervention for cancer. -Per review from in 2013, patient was still thinking about treatment or work up. Of note, it does not appear that patient has had biopsy of mass. She did have MRI in 2013 with 4cm left renal mass. It appears that patient has not followed with since. -Per my discussion with patient, patient still declines further testing or intervention for possible renal cancer. Patient aware of possible cancer, potential metastasis, and risk of . Patient still declines further intervention. Discussed at length with son and [id number]. -Appreciate hospitalist input. Qualifiers: Laterality: left Qualified Code(s): C64.2 - Malignant neoplasm of left kidney, except renal pelvis (6) Hemoptysis Current Visit: Yes Status: Acute Per cardiology: -Patient with hemoptysis yesteday. Patient states no hemoptysis today. -Unable to stop asa or brilinta due to recent SONIDO. -Possible external compression of RV on echocardiogram. Concerning with history of renal cancer. -CHest CT yesterday, as above. -Hemoglobin today 11.3, was 11.8 yesterday. -Will continue to monitor. Appreciate pulmonary services input. (7) Ischemic cardiomyopathy Current Visit: Yes Status: Acute Per cardiology: -STEMI this admission. -LVEF 35% per echo. -ON beta blokcer, -Unable to add sudhakar inhibitor at this time due to hypotension. -BPs curerntly 80-100s systolic. -Will continue to monitor. -Consider addition of sudhakar inhibitor once BP stable. Discussion w patient/family: The assessment and plan as outlined above was discussed with the patient and family who expressed understanding and agreement. All questions were answered. Thank you for involving us in the care of your patient. Please call with any questions. Discussed and reviewed with . Subjective Principal diagnosis: STEMI Interval history: Patient presented to [facility] with complaints of chest and left arm pain that occurred about 1-2 hours before presentation. ECG in squad concerning for STEMI , patient was evaluated in ER and ECG was repeated. STEMI alert notified. Patient was taken emergently to electronic lab technician for LHC. Patient received 1 drug- eluding stent to proximal LAD. Per discussion with , no other intervention was needed. Patient currently chest pain free. Denies issues using right wrist. Hospitalist was consulted for urinary symptoms and medical management. Yesterday, patient had hemoptysis. Pulmonary services consulted. Today, patient denies chest pain. Patient states she had not had hemoptysis since yesterday. Patient states her breathing is much better. Son at bedside during time of assessment. Objective Vital Signs, Last 4 Hours Temp Pulse Resp BP Pulse Ox 08/09/16 08:36 26 93 08/09/16 08:25 108 08/09/16 08:00 107 18 105/68 90 08/09/16 07:35 97.7 F 08/09/16 06:00 107 18 100/65 95 General: Conversant, No Apparent Distress HEENT: Atraumatic, Normocephaly, Mucus Membranes Moist Neck: No JVD, Normal carotid pulses Cardiac: Reg Rate and Rhythm, Normal S1 and S2, No Murmur Lungs: Other (Lung sounds diminished throughout) Neuro: Alert and responsive, No focal deficits noted Abdomen: Soft, Non-Tender Skin: No rashes noted on visualized skin Musculoskeletal: No Chest Wall Tenderness Extremities: No Clubbing, No Cyanosis, No Edema, Normal Pulses Results 08/09/16 03:02 08/09/16 03:02 Lab Results Impressions Chest CT 08/08/16 14:00 IMPRESSION: 1. Bilateral lower lobe airspace consolidations compatible with multifocal pneumonia and/or aspiration. 2. Underlying severe upper lung predominant emphysema and chronic interstitial changes in the lung bases. Bilateral pleuroparenchymal scarring. 3. Partial visualization of left renal mass most suspicious for renal cell carcinoma. This measures at least 3.5 x 3.3 cm. D/ / 08/08/2016 15:50:03 Qi Song MD / Muna Cates Interpreting Provider: Qi Song MD Active Medications Acetaminophen (Tylenol) 500 mg PO Q6HR PRN PRN Reason: Mild Pain Stop: 02/05/17 20:28 Acetaminophen/Hydrocodone Bitart (Banco 5-325 Mg) 1 tab PO Q4HR PRN PRN Reason: Moderate Pain Stop: 02/05/17 20:31 Last Admin: 08/07/16 11:35 Dose: 1 tab Albuterol/Ipratropium (Duoneb) 3 ml IH [id number] JOSH PRN Reason: Protocol Stop: 02/07/17 16:01 Last Admin: 08/09/16 08:35 Dose: 3 ml Aspirin (Aspirin) 81 mg PO DAILY JOSH Stop: 02/06/17 09:01 Last Admin: 08/09/16 08:23 Dose: 81 mg Atorvastatin Calcium (Lipitor) 80 mg PO HS JOSH Stop: 02/05/17 21:01 Last Admin: 08/08/16 20:44 Dose: 80 mg Budesonide/Formoterol Fumarate (Symbicort) 2 puff IH BIDR JOSH PRN Reason: Protocol Stop: 02/07/17 22:01 Last Admin: 08/09/16 08:35 Dose: 2 puff Diphenhydramine HCl (Benadryl) 25 mg PO HS PRN PRN Reason: Insomnia Stop: 02/05/17 20:31 Sodium Chloride (0.9 % Sodium Chloride) 1,000 mls @ 100 mls/hr IVC .Q10H JOSH Stop: 02/06/17 12:31 Last Admin: 08/09/16 05:58 Dose: Not Given Levofloxacin/Dextrose (Levaquin Premix 750mg/150 Ml) 750 mg in 150 mls @ 100 mls/hr IVPB Q24H JOSH PRN Reason: Protocol Stop: 02/06/17 13:01 Last Infusion: 08/08/16 20:45 Dose: Infused Magnesium Oxide (Mag-Ox) 400 mg PO BID JOSH PRN Reason: Protocol Stop: 02/06/17 12:46 Last Admin: 08/09/16 08:22 Dose: 400 mg Methylprednisolone (Solu-Medrol) 80 mg IVP Q8H JOSH Stop: 02/07/17 20:01 Last Admin: 08/09/16 05:30 Dose: 80 mg Metoprolol Tartrate (Lopressor) 12.5 mg PO BID JOSH Stop: 02/06/17 10:16 Last Admin: 08/09/16 08:23 Dose: 12.5 mg Morphine Sulfate (Morphine Sulfate) 4 mg IVP Q3H PRN PRN Reason: Severe Pain (7-10) Stop: 02/05/17 20:28 Last Admin: 08/09/16 05:40 Dose: 4 mg Nitroglycerin (Nitroglycerin) 0.4 mg SL Q5MIN PRN PRN Reason: Chest Pain Stop: 02/05/17 20:31 Ondansetron HCl (Zofran) 4 mg IVP Q8HR PRN PRN Reason: Nausea And Vomiting Stop: 02/05/17 20:28 Last Admin: 08/08/16 13:45 Dose: 4 mg Ticagrelor (Brilinta) 90 mg PO BID JOSH Stop: 02/05/17 21:01 Last Admin: 08/09/16 08:22 Dose: 90 mg Laboratory Tests 08/06/16 08/07/16 08/08/16 18:24 03:41 02:57 WBC 15.5 H Hgb 14.5 11.6 Creatinine 08/09/16 08/09/16 03:02 03:02 WBC 13.6 H Hgb 11.3 L Creatinine 0.84 - Imaging and Cardiology Chest Xray: report reviewed Echo: report reviewed Cardiac cath: report reviewed Other Results: CT chest report reviewed. - EKG Interpretation EKG results cardiology: other (Telemetry reviewed with average HR previous 12 hours noted to be 98, sinus rhythm. PVCs and PACs noted.) Consult Discharge Plan - Plan Referrals: Hillary Renteria, LIFESTYLE BLOCK FARMER [Primary Care Provider] -
--- NOTE | 2016-08-09 10:42 | Internal Med Progress Note ---
Date of Encounter: 08/09/16 Time of Encounter: 10:40 - Assessment and plan (1) ST elevation myocardial infarction (STEMI) Current Visit: Yes Status: Acute Assessment and plan: Management per cardiology, primary team Qualifiers: Involved coronary artery: LAD coronary artery Qualified Code(s): I21.02 - ST elevation (STEMI) myocardial infarction involving left anterior descending coronary artery (2) Hypomagnesemia Current Visit: Yes Status: Acute Assessment and plan: Mag today 2.0, continue to monitor 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, except renal pelvis (5) UTI (urinary tract infection) Current Visit: Yes Status: Acute Assessment and plan: Urine with E.coli, sensitive to Zosyn/Cefalosporins, resistant to levoflox, medication regimen changed to ceftriaxone/Azithromycin Qualifiers: Urinary tract infection type: acute cystitis Hematuria presence: with hematuria Qualified Code(s): N30.01 - Acute cystitis with hematuria (6) COPD (chronic obstructive pulmonary disease) Current Visit: Yes Status: Acute Assessment and plan: Continue nebs and O2 supplements, initial CXR unremarkable for infiltrates Chest CT with multifocal pneumonis Continue antibiotics, duonebs, steroids Changed solumedrol to po prednisone from a.m Qualifiers: COPD type: emphysema Emphysema type: unspecified Qualified Code(s): J43.9 - Emphysema, unspecified (7) Hypotension Current Visit: Yes Status: Acute Assessment and plan: IMproved Continue IVF hydration Qualifiers: Hypotension type: unspecified hypotension type Qualified Code(s): I95.9 - Hypotension, unspecified (8) Sepsis Current Visit: Yes Status: Acute Assessment and plan: Secondary to UTI and Pneumonia, HR improved BP WNL Leukocytosis is improving, Continue antibitoics Send sputum for culture if patient making sputum Qualifiers: Sepsis type: sepsis due to unspecified organism Qualified Code(s): A41.9 - Sepsis, unspecified organism (9) Hemoptysis Current Visit: Yes Status: Acute Assessment and plan: CT scan noted, pulm eval noted, no intervention - Subjective Interval history: Seen and evaluated at bedside with family No new complains Making significant improvement Hemoptysis has improved chest CT with multifocal pneumonia Patient is not producing sputum Urine culture today with E.coli, sensitive to cephalosporins, resistant to Levoflox, Levoflox discontinued Start on Ceftriaxone and Azithromycin for Pneumonia and UTI Send sputum culture when available Medicine will continue to follow, if patient is being planned for discharge by cardiology, will recommend she completes at least 7 days of IV antibiotics for UTI and Pneumonia - Constitutional Vitals: Temp Pulse Resp BP Pulse Ox 97.7 F 98 18 102/65 92 08/09/16 07:35 08/09/16 10:00 08/09/16 10:00 08/09/16 10:00 08/09/16 10:00 General appearance: Present: A&O X 3, pleasant, no acute distress - Head Head exam: Present: atraumatic, normocephalic - Eye Eye exam: Present: PERRL, conjuntiva pink, sclera anicteric Pupils: Present: PERRL - Neck Neck exam general surgery: Present: supple, trachea midline. Absent: lymphadenopathy - Respiratory Respiratory exam: Present: CTAB. Absent: accessory muscle use, rales, rhonchi, wheezes - Cardiovascular Cardiovascular exam: Present: RRR, +S1, +S2. Absent: diastolic murmur, gallop, rubs, systolic murmur - GI/Abdominal GI/Abdominal exam: Present: normal bowel sounds, soft, no peritoneal signs. Absent: distended, tenderness - Extremities Exam Extremities exam: Present: warm, radial pulses palpable and symetrical. Absent : calf tenderness, cyanotic, pedal edema - Neurological Exam Neurological exam: Present: alert, CN II-XII intact, oriented X3, no focal deficits. Absent: pronater drift, facial droop, speech deficit - Skin Skin exam: Present: dry, intact Internal Medicine: Result - Labs CBC & Chem 7: 08/09/16 03:02 08/09/16 03:02 Labs: Short CBC 08/09/16 Range/Units 03:02 WBC 13.6 H (4.3-11.1) K/mcL Hgb 11.3 L (11.5-15.4) g/dL Hct 33.9 L (35.3-44.9) % Plt Count 299 (140-400) K/mcL Neutrophils # 12.2 H (1.6-8.9) K/mcL BMP 08/09/16 03:02 Sodium 136 Potassium 4.8 H Chloride 102 Carbon Dioxide 24 BUN 29 H D Creatinine 0.84 Glucose 148 H Calcium 8.3 L - ABG Interpretation ABG results: PT/INR, D-dimer PT 10.4 Seconds (9.4-12.1) 08/06/16 18:24 - Impressions Impressions Chest CT 08/08/16 14:00 IMPRESSION: 1. Bilateral lower lobe airspace consolidations compatible with multifocal pneumonia and/or aspiration. 2. Underlying severe upper lung predominant emphysema and chronic interstitial changes in the lung bases. Bilateral pleuroparenchymal scarring. 3. Partial visualization of left renal mass most suspicious for renal cell carcinoma. This measures at least 3.5 x 3.3 cm. D/ / 08/08/2016 15:50:03 Qi Song MD / Muna Cates Interpreting Provider: Qi Song MD Consult Discharge Plan - Plan Referrals: Hillary Renteria, [facility] [Primary Care Provider] -
[2016-08-09] MEDS ORDERED: Azithromycin 500 MG in D5% in Water 250 ML IVPB SCH (11:00)
[2016-08-09] MEDS ORDERED: 0.9 % Sodium Chloride 1,000 ML IVC SCH (13:03)
[2016-08-09] MEDS ORDERED: Nitroglycerin 0.4 MG TAB.SUBL SL PRN (13:03)
[2016-08-09] MEDS ORDERED: *HR* Morphine 2 MG/ML SYRINGE IVP PRN (13:03)
[2016-08-09] MEDS ORDERED: MethylPREDNISolone 40 MG/ML VIAL IVP SCH (20:00)
[2016-08-10] MEDS: Ipratropium/Albuterol Neb 3 ML IH SCH ×2 (03:52→07:52)
[2016-08-10 05:30] LABS: Basophils % 0.1 %; Hematocrit 30.6 % (35.3-44.9); Hemoglobin 10.4 g/dL (11.5-15.4); Immature Granulocytes % 0.8 % (0-4); Lymphocytes # 0.8 K/mcL (0.6-4.6); Lymphocytes % 5.7 %; Mean Corpuscular Hemoglobin 34.3 pg (28.0-33.3); Monocytes # 0.5 K/mcL (0.0-1.3); Monocytes % 3.5 %; Neutrophils # 11.9 K/mcL (1.6-8.9); Platelet Count 316 K/mcL (140-400); Red Blood Count 3.03 M/mcL (3.82-4.97); Red Cell Distribution Width 12.6 % (11.5-14.5); Segmented Neutrophils % 89.9 %
[2016-08-10] MEDS: Magnesium Oxide 400 MG TABLET PO SCH (07:32)
[2016-08-10] MEDS: predniSONE 20 MG TABLET PO SCH (07:32)
[2016-08-10] MEDS: *HR* Ticagrelor 90 MG TABLET PO SCH ×2 (07:33→21:50)
[2016-08-10] MEDS: Aspirin 81 MG TAB.CHEW PO SCH (07:33)
[2016-08-10] MEDS: Budesonide/Formoterol 80/4.5 MDI IH SCH ×2 (07:52→20:40)
[2016-08-10 08:03] LABS: BUN/Creatinine Ratio 40 (6-26); Blood Urea Nitrogen 34 mg/dL (7-20); Calcium 8.3 mg/dL (8.6-10.8); Carbon Dioxide 27 mEq/L (19-29); Chloride 99 mEq/L (98-109); Glucose 145 mg/dL (70-99); Osmolality,Calculated 288 (280-300); Potassium 4.6 mEq/L (3.5-4.5); Sodium 134 mEq/L (136-145); eGFR For African Americans > 60 (> 60); eGFR For Non-African Americans > 60 (> 60)
[2016-08-10] MEDS ORDERED: Metoprolol XL (24 HR) Succ 25 MG TAB.ER.24H PO SCH (09:00)
[2016-08-10] MEDS ORDERED: predniSONE 20 MG TABLET PO SCH (09:00)
--- NOTE | 2016-08-10 10:51 | Internal Med Progress Note ---
Date of Encounter: 08/10/16 Time of Encounter: 10:51 - Assessment and plan (1) ST elevation myocardial infarction (STEMI) Current Visit: Yes Status: Acute Assessment and plan: Management per cardiology, primary team Qualifiers: Involved coronary artery: LAD coronary artery Qualified Code(s): I21.02 - ST elevation (STEMI) myocardial infarction involving left anterior descending coronary artery (2) Hypomagnesemia Current Visit: Yes Status: Acute Assessment and plan: Mag today 2.2, discontinue magnesium supplements. 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, except renal pelvis (5) UTI (urinary tract infection) Current Visit: Yes Status: Acute Assessment and plan: Urine with E.coli, sensitive to Zosyn/Cefalosporins, resistant to levoflox, medication regimen changed to ceftriaxone/Azithromycin Qualifiers: Urinary tract infection type: acute cystitis Hematuria presence: with hematuria Qualified Code(s): N30.01 - Acute cystitis with hematuria (6) COPD (chronic obstructive pulmonary disease) Current Visit: Yes Status: Acute Assessment and plan: Continue nebs and O2 supplements, initial CXR unremarkable for infiltrates Chest CT with multifocal pneumonis Continue antibiotics, levalbuterol, ipratropium,, steroids Qualifiers: COPD type: emphysema Emphysema type: unspecified Qualified Code(s): J43.9 - Emphysema, unspecified (7) Hypotension Current Visit: Yes Status: Acute Assessment and plan: IMproved D/C IVF Qualifiers: Hypotension type: unspecified hypotension type Qualified Code(s): I95.9 - Hypotension, unspecified (8) Sepsis Current Visit: Yes Status: Acute Assessment and plan: Secondary to UTI and Pneumonia, HR improved BP WNL Leukocytosis is improving, Continue antibitoics Qualifiers: Sepsis type: sepsis due to unspecified organism Qualified Code(s): A41.9 - Sepsis, unspecified organism (9) Hemoptysis Current Visit: Yes Status: Acute Assessment and plan: CT scan noted, pulm eval noted, no intervention (10) CHF (congestive heart failure) Current Visit: Yes Status: Acute Assessment and plan: Possibly from ischemic cardiomyopathy secondary to [place]. Cardiology is on board and managing Qualifiers: Congestive heart failure type: systolic Congestive heart failure chronicity : acute Qualified Code(s): I50.21 - Acute systolic (congestive) heart failure - Subjective Interval history: Seen and evaluated at bedside with family No new complains Making significant improvement Hemoptysis has improved Urine culture today with E.coli, sensitive to cephalosporins, resistant to Levoflox, Levoflox discontinued 08/09 On Ceftriaxone and Azithromycin for Pneumonia and UTI-Day 2 Patient with trace edema and dyspnea still, ECHO with decreased EF, cardiology is following Patient started on IV Lasix, albuterol changed to levalbuterol. Medicine will continue to follow, if patient is being planned for discharge by cardiology, will recommend she completes at least 7 days of IV antibiotics for UTI and Pneumonia - Constitutional Vitals: Temp Pulse Resp BP Pulse Ox 98.1 F 107 16 104/64 94 08/10/16 10:47 08/10/16 10:47 08/10/16 10:47 08/10/16 10:47 08/10/16 10:47 General appearance: Present: A&O X 3, pleasant, no acute distress - Head Head exam: Present: atraumatic, normocephalic - Eye Eye exam: Present: PERRL, conjuntiva pink, sclera anicteric Pupils: Present: PERRL - ENT ENT exam: Present: mucous membranes moist - Neck Neck exam general surgery: Present: normal inspection Internal Medicine: Result - Labs CBC & Chem 7: 08/10/16 04:37 08/10/16 07:44 Labs: Short CBC 08/10/16 Range/Units 04:37 WBC 13.2 H (4.3-11.1) K/mcL Hgb 10.4 L (11.5-15.4) g/dL Hct 30.6 L (35.3-44.9) % Plt Count 316 (140-400) K/mcL Neutrophils # 11.9 H (1.6-8.9) K/mcL BMP 08/10/16 07:44 Sodium 134 L Potassium 4.6 H Chloride 99 Carbon Dioxide 27 BUN 34 H Creatinine 0.86 Glucose 145 H Calcium 8.3 L - ABG Interpretation ABG results: PT/INR, D-dimer PT 10.4 Seconds (9.4-12.1) 08/06/16 18:24 Consult Discharge Plan - Plan Referrals: Hillary Renteria, SURG RN [Primary Care Provider] - (PATIENT IS GOING TO [facility] NO PCP APPOINTMENT IS NEEDED)
[2016-08-10] MEDS ORDERED: Furosemide 20 MG/2 ML VIAL IVP ONE ×4 (10:52→18:00)
[2016-08-10] MEDS: Ipratropium Neb 0.5 MG NEBULIZER IH SCH ×4 (11:21→23:51)
[2016-08-10] MEDS: Levalbuterol Neb 1.25 MG/3 ML IH SCH ×3 (11:21→20:40)
--- NOTE | 2016-08-10 11:43 | Cardiology Progress Note ---
Date of Encounter: 08/10/16 Time of Encounter: 11:38 Assessment and Plan (1) ST elevation myocardial infarction (STEMI) Current Visit: Yes Status: Acute Per cardiology: Patient presented with acute STEMI s/p emergent LHC with 1 SONIDO to proximal LAD, 30% stenosis mid circ, OM 1 50%, 50% stenosis mid RCA. Right radial access site without hematoma or ecchymosis. Remains chest pain free. DAPT (ASA and Brilinta) uninterrupted x 1 year. Continue Statin and BB. Echo LVEF 35%, modersate LV systolic dysfunction with regional variations, indeterminate diastolic function. PT/OT saw pt and recommend short term rehab placement at discharge. Social work following as well. Qualifiers: Involved coronary artery: LAD coronary artery Qualified Code(s): I21.02 - ST elevation (STEMI) myocardial infarction involving left anterior descending coronary artery (2) Renal cancer Current Visit: Yes Status: Suspected Per cardiology: Hx of renal cancer, previously declined further work up or intervention. Patient still declines further testing or intervention for possible renal cancer. Patient aware of possible cancer, potential metastasis, and risk of . Patient still declines further intervention. Appreciate hospitalist input. 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 Unable to stop asa or brilinta due to recent SONIDO. Possible external compression of RV on echocardiogram. Concerning with history of renal cancer. Chest CT completed. HGB 10.4 today, was 11.3 yesterday. Pulmonary following. No plan for bronch at this time due to being high risk. (4) Ischemic cardiomyopathy Current Visit: Yes Status: Acute Per cardiology: STEMI s/p revascularization, LVEF 35% per echo. On BB, unable to add sudhakar inhibitor at this time due to hypotension. BPs curerntly 80-100s systolic. Will continue to monitor. Consider addition of sudhakar inhibitor once BP stable. Discussion w patient/family: The assessment and plan as outlined above was discussed with the patient and/or family members who expressed understanding and agreement. All questions were answered. Thank you for involving us in the care of your patient. Please call with any questions. I will discuss all the above with Dr. Rivas and make changes as necessary. Subjective Principal diagnosis: STEMI Interval history: Pt reports episode of hemoptysis this AM. Denies chest pain, reports breathing is stable. Evaluted by PT/OT yesterday who recommend short term rehab. 24 hour tele AVG HR 104, SR. Objective Vital Signs, Last 4 Hours Temp Pulse Resp BP Pulse Ox 08/10/16 11:23 18 93 08/10/16 11:05 105 95 08/10/16 10:47 98.1 F 107 16 104/64 94 08/10/16 07:53 20 94 Vital Signs Temp Pulse Resp BP Pulse Ox 08/10/16 11:23 18 93 08/10/16 11:05 105 95 08/10/16 10:47 98.1 F 107 16 104/64 94 08/10/16 07:53 20 94 08/10/16 07:30 120 104/70 94 08/10/16 06:50 98 F 121 16 92/60 96 08/10/16 03:54 14 103/73 97 08/10/16 03:13 97.6 F 106 14 103/73 94 08/09/16 23:15 97.7 F 102 18 93/61 94 08/09/16 23:00 22 92 08/09/16 20:02 22 92 08/09/16 19:45 98.0 F 102 22 91/63 92 08/09/16 17:03 93 08/09/16 16:19 16 98/70 91 08/09/16 15:10 97.7 F 106 20 98/70 92 08/09/16 14:00 105 16 93/68 93 08/09/16 12:00 110 16 100/63 94 Intake and Output 08/09/16 08/10/16 08/10/16 23:59 07:59 15:59 Intake Total 100 / 100 100 / 100 Output Total 500 / 500 400 / 400 0 / 0 Balance -500 / -500 -300 / -300 100 / 100 Intake: IV Fluids 100 / 100 Rocephin 1,000 MG In 100 / 100 Dextrose 5% (Minibag+) 100 ML 100 ML @ 200 mls/ hr IVPB DAILY [facility] Rx#: [id number] Oral 100 / 100 0 / 0 Output: Urine 500 / 500 400 / 400 0 / 0 Other: Meal Breakfast Percent of Meal Consumed 5% Weight 81.1 kg Patient Weight 08/10/16 23:59 Weight 81.1 kg General: Conversant, No Apparent Distress HEENT: Atraumatic, Normocephaly, Mucus Membranes Moist Neck: No JVD, Normal carotid pulses Cardiac: Reg Rate and Rhythm, Normal S1 and S2, No Murmur Lungs: Other (diminished) Neuro: Alert and responsive, No focal deficits noted Abdomen: Soft, Non-Tender Skin: No rashes noted on visualized skin Musculoskeletal: No Chest Wall Tenderness Extremities: No Clubbing, No Cyanosis, No Edema, Normal Pulses Results 08/10/16 04:37 08/10/16 07:44 Lab Results 08/10/16 08/10/16 08/10/16 04:37 04:37 07:44 WBC 13.2 H Hgb 10.4 L Hct 30.6 L Plt Count 316 Sodium 134 L Potassium 4.6 H Chloride 99 Carbon Dioxide 27 BUN 34 H Creatinine 0.86 Glucose 145 H Calcium 8.3 L Magnesium 2.2 Short CBC 08/10/16 Range/Units 04:37 WBC 13.2 H (4.3-11.1) K/mcL Hgb 10.4 L (11.5-15.4) g/dL Hct 30.6 L (35.3-44.9) % Plt Count 316 (140-400) K/mcL Neutrophils # 11.9 H (1.6-8.9) K/mcL BMP 08/10/16 Range/Units 07:44 Sodium 134 L (136-145) mEq/L Potassium 4.6 H (3.5-4.5) mEq/L Chloride 99 (98-109) mEq/L Carbon Dioxide 27 (19-29) mEq/L BUN 34 H (7-20) mg/dL Creatinine 0.86 (0.57-1.11) mg/dL Glucose 145 H (70-99) mg/dL Calcium 8.3 L (8.6-10.8) mg/dL Active Medications Acetaminophen (Tylenol) 500 mg PO Q6HR PRN PRN Reason: Mild Pain Stop: 02/05/17 20:28 Acetaminophen/Hydrocodone Bitart (Lucas 5-325 Mg) 1 tab PO Q4HR PRN PRN Reason: Moderate Pain Stop: 02/05/17 20:31 Aspirin (Aspirin) 81 mg PO DAILY [facility] Stop: 02/06/17 09:01 Last Admin: 08/10/16 07:33 Dose: 81 mg Atorvastatin Calcium (Lipitor) 80 mg PO HS [facility] Stop: 02/05/17 21:01 Last Admin: 08/09/16 21:21 Dose: 80 mg Budesonide/Formoterol Fumarate (Symbicort) 2 puff IH BIDR [facility] PRN Reason: Protocol Stop: 02/07/17 22:01 Last Admin: 08/10/16 07:52 Dose: 2 puff Diphenhydramine HCl (Benadryl) 25 mg PO HS PRN PRN Reason: Insomnia Stop: 02/05/17 20:31 Azithromycin 500 mg/ Dextrose 250 mls @ 252 mls/hr IVPB Q24H [facility] Stop: 02/08/17 11:01 Ceftriaxone Sodium 1,000 mg/ (Dextrose) 100 mls @ 200 mls/hr IVPB DAILY [facility] Stop: 02/09/17 09:01 Last Infusion: 08/10/16 08:08 Dose: Infused Ipratropium [place] (Atrovent Neb) 0.5 mg IH [id number] [facility] Stop: 02/09/17 12:01 Last Admin: 08/10/16 11:21 Dose: 0.5 mg Levalbuterol HCl (Xopenex) 1.25 mg IH [id number] [facility] Stop: 02/09/17 11:01 Last Admin: 08/10/16 11:21 Dose: 1.25 mg Metoprolol Succinate (Toprol Xl) 12.5 mg PO DAILY [facility] Stop: 02/09/17 09:01 Last Admin: 08/10/16 07:31 Dose: 12.5 mg Morphine Sulfate (Morphine Sulfate) 4 mg IVP Q3H PRN PRN Reason: Severe Pain (7-10) Stop: 02/05/17 20:28 Last Admin: 08/09/16 14:15 Dose: 4 mg Nitroglycerin (Nitroglycerin) 0.4 mg SL Q5MIN PRN PRN Reason: Chest Pain Stop: 02/05/17 20:31 Ondansetron HCl (Zofran) 4 mg IVP Q8HR PRN PRN Reason: Nausea And Vomiting Stop: 02/05/17 20:28 Prednisone (Prednisone) 40 mg PO DAILY [facility] Stop: 02/09/17 09:01 Last Admin: 08/10/16 07:32 Dose: 40 mg Ticagrelor (Brilinta) 90 mg PO BID [facility] Stop: 02/05/17 21:01 Last Admin: 08/10/16 07:33 Dose: 90 mg - Imaging and Cardiology Echo: report reviewed Cardiac cath: report reviewed - EKG Interpretation EKG results cardiology: other (24 hour tele AVG HR 104, SR, no significant pauses or arrhythmias.) Consult Discharge Plan - Plan Referrals: Hillary Renteria, FINANCIAL ANALYSIS CONSULTANT [Primary Care Provider] -
--- NOTE | 2016-08-10 12:16 | Pulmonology Progress Note ---
<Nicko Biggs - Last Filed: 08/10/16 13:45> Date of Encounter: 08/10/16 Time of Encounter: 12:14 Assessment and Plan (1) Hemoptysis Current Visit: Yes Status: Acute improved and nearly resolved mentioned 3 episodes of blood tinged sputum constant sputum production, majority without blood denies any shortness of breath hemoglobin stable 10.4 (11.3) unless significant change, still do not recommend bronchoscopy Pulmonology will sign off at this time. Thank you for allowing us participate in the care of your patient. (2) COPD (chronic obstructive pulmonary disease) Current Visit: Yes Status: Acute known COPD, suspect CAP or exacerbation of COPD 1 ppd smoker smoking cessation encouraged sputum production prior to admission continue scheduled bronchodilators and steroids CT Chest 08/08 - bilateral lower lobe airspace consolidations suggestive of pneumonia and/or aspiration treating for suspected CAP with Levaquin for dual coverage of UTI but urine culture sensitivities resistant to Levaquin - continue Ceftriaxone and Azithromycin Qualifiers: COPD type: emphysema Emphysema type: unspecified Qualified Code(s): J43.9 - Emphysema, unspecified Subjective Principal diagnosis: STEMI Interval history: No major events overnight. Patient seen and examined at bedside. The frequency of her hemoptysis has diminished down to roughly 3 episodes. It continues to be sputum that is blood tinged. Denies any blood clots. She coughed for me twice which brought up only yellow sputum no blood. Denies any complaints at this time. Denies any chest pain, shortness of breath, abdominal pain, nausea or vomiting. Objective PUL Vital signs: Last Vital Signs Temp 98.1 F 08/10/16 10:47 Pulse 105 08/10/16 11:05 Resp 18 08/10/16 11:23 BP 104/64 08/10/16 10:47 Pulse Ox 93 08/10/16 11:23 General appearance: no acute distress, alert Eyes: nonicteric ENT: oropharynx moist, other (sputum visualized in the oropharynx but no obvious blood) Effort: normal Auscultation: bilateral: clear, diminished breath sounds Cardiovascular: regular rate and rhythm Gastrointestinal: normoactive bowel sounds, soft, non-tender, non-distended Integumentary: normal Extremities: no edema Musculoskeletal: no deformities normal mental status, non-focal exam, pupils equal and round Results - Laboratory Findings CBC and BMP: 08/10/16 04:37 08/10/16 07:44 PT/INR, D-dimer PT 10.4 Seconds (9.4-12.1) 08/06/16 18:24 Abnormal lab findings: Abnormal lab results WBC 13.2 K/mcL (4.3-11.1) H 08/10/16 04:37 RBC 3.03 M/mcL (3.82-4.97) L 08/10/16 04:37 Hgb 10.4 g/dL (11.5-15.4) L 08/10/16 04:37 Hct 30.6 % (35.3-44.9) L 08/10/16 04:37 MCV 101.0 fL (83.0-100.0) H 08/10/16 04:37 MCH 34.3 pg (28.0-33.3) H 08/10/16 04:37 Neutrophils # 11.9 K/mcL (1.6-8.9) H 08/10/16 04:37 APTT 24.2 Seconds (26.0-36.0) L 08/06/16 18:24 Sodium 134 mEq/L (136-145) L 08/10/16 07:44 Potassium 4.6 mEq/L (3.5-4.5) H 08/10/16 07:44 BUN 34 mg/dL (7-20) H 08/10/16 07:44 BUN/Creatinine Ratio 40 (6-26) H 08/10/16 07:44 Glucose 145 mg/dL (70-99) H 08/10/16 07:44 POC Glucose 132 (58-89) H 08/06/16 20:47 Calcium 8.3 mg/dL (8.6-10.8) L 08/10/16 07:44 Troponin I 1.76 ng/mL (0-0.03) H* 08/06/16 18:24 Urine Color [place] (Yellow) A 08/07/16 11:08 Urine Clarity Turbid (Clear) A 08/07/16 11:08 Ur Specific [place] > 1.030 (1.010-1.025) H 08/07/16 11:08 Urine Blood Moderate (Negative) H 08/07/16 11:08 Urine Nitrite Positive (Negative) A 08/07/16 11:08 Ur Leukocyte Esterase Large (Negative) H 08/07/16 11:08 Urine Microscopic RBC 5-15 per hpf (0-3) H 08/07/16 11:08 Urine Microscopic WBC TNTC per hpf (0-3) H 08/07/16 11:08 Ur Squamous Epith Cells Moderate per lpf (None-Few) H 08/07/16 11:08 Urine Bacteria Many per hpf (None-Few) H 08/07/16 11:08 Ur Culture Indicated? YES (NO) A 08/07/16 11:08 - Microbiology Findings Microbiology Findings: Microbiology, Last 48 Hours 08/07/16 11:08 Urine Culture - Final Urine,Clean Catch Escherichia coli 08/07/16 12:52 Blood Culture - Preliminary Peripheral Venipuncture No growth. - Clinical Findings Intake & Output: Intake & Output 08/09/16 08/10/16 08/10/16 23:59 07:59 15:59 Intake Total 100 / 100 100 / 100 Output Total 500 / 500 400 / 400 0 / 0 Balance -500 / -500 -300 / -300 100 / 100 Weight 81.1 kg Consult Discharge Plan - Plan Referrals: Hillary Renteria, WIRE WEAVER [Primary Care Provider] - (PATIENT IS GOING TO [facility] NO PCP APPOINTMENT IS NEEDED) <Roni Gonzalez - Last Filed: 08/10/16 14:38> Date of Encounter: 08/10/16 Objective PUL Vital signs: Last Vital Signs Temp 98.1 F 08/10/16 10:47 Pulse 105 08/10/16 11:05 Resp 18 08/10/16 11:23 BP 104/64 08/10/16 10:47 Pulse Ox 93 08/10/16 11:23 Results - Laboratory Findings CBC and BMP: 08/10/16 04:37 08/10/16 07:44 PT/INR, D-dimer PT 10.4 Seconds (9.4-12.1) 08/06/16 18:24 Abnormal lab findings: Abnormal lab results WBC 13.2 K/mcL (4.3-11.1) H 08/10/16 04:37 RBC 3.03 M/mcL (3.82-4.97) L 08/10/16 04:37 Hgb 10.4 g/dL (11.5-15.4) L 08/10/16 04:37 Hct 30.6 % (35.3-44.9) L 08/10/16 04:37 MCV 101.0 fL (83.0-100.0) H 08/10/16 04:37 MCH 34.3 pg (28.0-33.3) H 08/10/16 04:37 Neutrophils # 11.9 K/mcL (1.6-8.9) H 08/10/16 04:37 APTT 24.2 Seconds (26.0-36.0) L 08/06/16 18:24 Sodium 134 mEq/L (136-145) L 08/10/16 07:44 Potassium 4.6 mEq/L (3.5-4.5) H 08/10/16 07:44 BUN 34 mg/dL (7-20) H 08/10/16 07:44 BUN/Creatinine Ratio 40 (6-26) H 08/10/16 07:44 Glucose 145 mg/dL (70-99) H 08/10/16 07:44 POC Glucose 132 (58-89) H 08/06/16 20:47 Calcium 8.3 mg/dL (8.6-10.8) L 08/10/16 07:44 Troponin I 1.76 ng/mL (0-0.03) H* 08/06/16 18:24 Urine Color [place] (Yellow) A 08/07/16 11:08 Urine Clarity Turbid (Clear) A 08/07/16 11:08 Ur Specific [place] > 1.030 (1.010-1.025) H 08/07/16 11:08 Urine Blood Moderate (Negative) H 08/07/16 11:08 Urine Nitrite Positive (Negative) A 08/07/16 11:08 Ur Leukocyte Esterase Large (Negative) H 08/07/16 11:08 Urine Microscopic RBC 5-15 per hpf (0-3) H 08/07/16 11:08 Urine Microscopic WBC TNTC per hpf (0-3) H 08/07/16 11:08 Ur Squamous Epith Cells Moderate per lpf (None-Few) H 08/07/16 11:08 Urine Bacteria Many per hpf (None-Few) H 08/07/16 11:08 Ur Culture Indicated? YES (NO) A 08/07/16 11:08 - Microbiology Findings Microbiology Findings: Microbiology, Last 48 Hours 08/07/16 11:08 Urine Culture - Final Urine,Clean Catch Escherichia coli 08/07/16 12:52 Blood Culture - Preliminary Peripheral Venipuncture No growth. - Clinical Findings Intake & Output: Intake & Output 08/09/16 08/10/16 08/10/16 23:59 07:59 15:59 Intake Total 100 / 100 100 / 100 Output Total 500 / 500 400 / 400 400 / 400 Balance -500 / -500 -300 / -300 -300 / -300 Weight 81.1 kg - Attending Attestation I examined this patient and my medical decision-making was reviewed with the CODING CLERKS SUPERVISOR/PA/Advanced Practice Nurse/Resident Physician. I agree with the documented findings, disposition and treatment plan as described except to the extent set forth below. Patient seen and examined. Labs, radiology, chart personally reviewed. Agree with resident's history and physical, assessment, plan with following comments: [employer] MAKER: Patient follows commands, Pulmonary: Acceptable oxygenation and ventilation. Patient has very minimal hemoptysis and continue treatment for pneumonia as well as prednisone was bronchodilators. There is no plan for bronchoscopy. Discussed with patient and the family.
[2016-08-10] MEDS: Azithromycin 500 MG in D5% in Water 250 ML IVPB SCH (12:42)
[2016-08-10] MEDS: *HR* HYDROcodone/Acet 5/325 mg TABLET PO PRN ×2 (12:44→21:50)
[2016-08-10] MEDS: Ondansetron 4 MG/2 ML VIAL IVP PRN ×2 (14:19→19:23)
[2016-08-10] MEDS: Metoprolol XL (24 HR) Succ 25 MG TAB.ER.24H PO SCH (21:49)
[2016-08-11] MEDS: *HR* HYDROcodone/Acet 5/325 mg TABLET PO PRN (03:11)
[2016-08-11] MEDS: Ipratropium Neb 0.5 MG NEBULIZER IH SCH ×4 (03:56→16:08)
[2016-08-11] MEDS: Levalbuterol Neb 1.25 MG/3 ML IH SCH ×3 (03:56→16:08)
[2016-08-11] MEDS: Budesonide/Formoterol 80/4.5 MDI IH SCH (07:48)
[2016-08-11] MEDS: Metoprolol XL (24 HR) Succ 25 MG TAB.ER.24H PO SCH (08:38)
[2016-08-11] MEDS: *HR* Ticagrelor 90 MG TABLET PO SCH (08:38)
[2016-08-11] MEDS: Aspirin 81 MG TAB.CHEW PO SCH (08:38)
[2016-08-11] MEDS: predniSONE 20 MG TABLET PO SCH (08:38)
[2016-08-11] MEDS ORDERED: Furosemide 20 MG/2 ML VIAL IVP SCH (09:00)
[2016-08-11 09:12] LABS: Basophils % 0.1 %; Eosinophils % 0.1 %; Hematocrit 32.1 % (35.3-44.9); Hemoglobin 10.7 g/dL (11.5-15.4); Immature Granulocytes % 0.8 % (0-4); Lymphocytes % 13.3 %; Mean Corpuscular HGB Conc 33.3 g/dL (31.6-35.5); Mean Corpuscular Volume 101.9 fL (83.0-100.0); Mean Platelet Volume 9.5 fL (9.4-12.4); Monocytes # 1.2 K/mcL (0.0-1.3); Neutrophils # 11.8 K/mcL (1.6-8.9); Platelet Count 353 K/mcL (140-400); Red Blood Count 3.15 M/mcL (3.82-4.97); Red Cell Distribution Width 12.8 % (11.5-14.5); Segmented Neutrophils % 77.7 %
[2016-08-11 09:34] LABS: BUN/Creatinine Ratio 33 (6-26); Blood Urea Nitrogen 28 mg/dL (7-20); Calcium 8.2 mg/dL (8.6-10.8); Carbon Dioxide 29 mEq/L (19-29); Chloride 96 mEq/L (98-109); Glucose 95 mg/dL (70-99); Osmolality,Calculated 285 (280-300); Potassium 4.1 mEq/L (3.5-4.5); Sodium 135 mEq/L (136-145); eGFR For African Americans > 60 (> 60); eGFR For Non-African Americans > 60 (> 60)
--- NOTE | 2016-08-11 09:48 | Internal Med Progress Note ---
Date of Encounter: 08/11/16 Time of Encounter: 09:45 - Assessment and plan (1) ST elevation myocardial infarction (STEMI) Current Visit: Yes Status: Acute Assessment and plan: Management per cardiology, primary team Qualifiers: Involved coronary artery: LAD coronary artery Qualified Code(s): I21.02 - ST elevation (STEMI) myocardial infarction involving left anterior descending coronary artery (2) Hypomagnesemia Current Visit: Yes Status: Resolved Assessment and plan: Mag today 2.2, discontinue magnesium supplements. 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, except renal pelvis (5) UTI (urinary tract infection) Current Visit: Yes Status: Acute Assessment and plan: Urine with E.coli, sensitive to Zosyn/Cefalosporins, resistant to levoflox, medication regimen changed to ceftriaxone/Azithromycin, continue for 7 days of cephalosporin Qualifiers: Urinary tract infection type: acute cystitis Hematuria presence: with hematuria Qualified Code(s): N30.01 - Acute cystitis with hematuria (6) COPD (chronic obstructive pulmonary disease) Current Visit: Yes Status: Acute Assessment and plan: Continue nebs and O2 supplements, initial CXR unremarkable for infiltrates Chest CT with multifocal pneumonis Continue antibiotics, levalbuterol, ipratropium,, steroids Qualifiers: COPD type: emphysema Emphysema type: unspecified Qualified Code(s): J43.9 - Emphysema, unspecified (7) Hypotension Current Visit: Yes Status: Resolved Assessment and plan: IMproved D/C IVF Qualifiers: Hypotension type: unspecified hypotension type Qualified Code(s): I95.9 - Hypotension, unspecified (8) Sepsis Current Visit: Yes Status: Acute Assessment and plan: Secondary to UTI and Pneumonia, HR improved BP WNL Leukocytosis is improving, Continue antibitoics Qualifiers: Sepsis type: sepsis due to unspecified organism Qualified Code(s): A41.9 - Sepsis, unspecified organism (9) Hemoptysis Current Visit: Yes Status: Acute Assessment and plan: CT scan noted, pulm eval noted, no intervention (10) CHF (congestive heart failure) Current Visit: Yes Status: Acute Assessment and plan: Possibly from ischemic cardiomyopathy secondary to CO. Cardiology is on board and managing Qualifiers: Congestive heart failure type: systolic Congestive heart failure chronicity : acute Qualified Code(s): I50.21 - Acute systolic (congestive) heart failure - Subjective Interval history: Seen and evaluated at bedside with family No new complains Making significant improvement Hemoptysis has improved Patient is being managed for Sepsis secondary to multifocal pneumonia and UTI, STEMI, CHFE Patient was admitted primarily by cardiology Her symptoms have improved significantly, she stil has some hemoptysis, and has been reviewed by pulmonology I believe her elevated white count is possibly from prednsione as patient has had no fevers, Medicine will be signing off this case with the following reccomendations *Complete 7 days of cephalosporin-Today is day 3, if planning on discharge, discharge on OMnicef 300mg bid to complete 7 days of therapy. This will also cover for her UTI *Complete 5 days of Azithromycin , you may change to po as above *Recommend to repeat imaging in 4-6 weeks after treatment to ensure resolution of infiltrates. Thank you for giving us the opportunity to care for this patient - Constitutional Vitals: Temp Pulse Resp BP Pulse Ox 98.1 F 104 18 102/69 98 08/11/16 07:37 08/11/16 07:37 08/11/16 07:48 08/11/16 07:37 08/11/16 07:48 General appearance: Present: A&O X 3, pleasant, no acute distress - Head Head exam: Present: atraumatic, normocephalic - Eye Eye exam: Present: PERRL, conjuntiva pink, sclera anicteric Pupils: Present: PERRL - Neck Neck exam general surgery: Present: supple, trachea midline. Absent: lymphadenopathy - Respiratory Respiratory exam: Present: CTAB. Absent: accessory muscle use, rales, rhonchi, wheezes - Cardiovascular Cardiovascular exam: Present: RRR, +S1, +S2. Absent: diastolic murmur, gallop, rubs, systolic murmur - GI/Abdominal GI/Abdominal exam: Present: normal bowel sounds, soft, no peritoneal signs. Absent: distended, tenderness - Extremities Exam Extremities exam: Present: pedal edema, warm, radial pulses palpable and symetrical. Absent: calf tenderness, cyanotic - Neurological Exam Neurological exam: Present: alert, CN II-XII intact, oriented X3, no focal deficits. Absent: pronater drift, facial droop, speech deficit - Skin Skin exam: Present: dry, intact Internal Medicine: Result - Labs CBC & Chem 7: 08/11/16 09:02 08/11/16 09:02 Labs: Short CBC 08/11/16 Range/Units 09:02 WBC 15.2 H (4.3-11.1) K/mcL Hgb 10.7 L (11.5-15.4) g/dL Hct 32.1 L (35.3-44.9) % Plt Count 353 (140-400) K/mcL Neutrophils # 11.8 H (1.6-8.9) K/mcL BMP 08/11/16 09:02 Sodium 135 L Potassium 4.1 Chloride 96 L Carbon Dioxide 29 BUN 28 H Creatinine 0.85 Glucose 95 Calcium 8.2 L - ABG Interpretation ABG results: PT/INR, D-dimer PT 10.4 Seconds (9.4-12.1) 08/06/16 18:24 - VTE Documentation of Mechanical Device: Intermittent pneumatic compression device Consult Discharge Plan - Plan Referrals: Hillary Renteria, [employer] [Primary Care Provider] - (PATIENT IS GOING TO [facility] NO PCP APPOINTMENT IS NEEDED)
--- NOTE | 2016-08-11 10:20 | Cardiology Progress Note ---
Date of Encounter: 08/11/16 Time of Encounter: 10:18 Assessment and Plan (1) ST elevation myocardial infarction (STEMI) Current Visit: Yes Status: Acute Per cardiology: Patient presented with acute STEMI s/p emergent LHC with 1 SONIDO to proximal LAD, 30% stenosis mid circ, OM 1 50%, 50% stenosis mid RCA. Right radial access site without hematoma or ecchymosis. Remains chest pain free. DAPT (ASA and Brilinta) uninterrupted x 1 year. Continue Statin and BB. Echo LVEF 35%, moderate LV systolic dysfunction with regional variations, indeterminate diastolic function. PT/OT saw pt and recommend short term rehab placement at discharge. Social work following as well, [facility] in [place] with female bed available. Anticipate discharge home later today or tomorrow. Pt seems hesitant to go today. Qualifiers: Involved coronary artery: LAD coronary artery Qualified Code(s): I21.02 - ST elevation (STEMI) myocardial infarction involving left anterior descending coronary artery (2) Renal cancer Current Visit: Yes Status: Suspected Per cardiology: Hx of renal cancer, previously declined further work up or intervention. Patient still declines further testing or intervention for possible renal cancer. Patient aware of possible cancer, potential metastasis, and risk of . Patient still declines further intervention. 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 Unable to stop asa or brilinta due to recent SONIDO. Possible external compression of RV on echocardiogram. Concerning with history of renal cancer. Chest CT completed. HGB 10.7 today, was 10.4 yesterday, stable. Pulmonary signed off. No plan for bronch at this time due to being high risk. (4) Ischemic cardiomyopathy Current Visit: Yes Status: Acute Per cardiology: STEMI s/p revascularization, LVEF 35% per echo. On BB, unable to add sudhakar inhibitor at this time due to hypotension. BPs curerntly 80-100s systolic. Will continue to monitor. Consider addition of sudhakar inhibitor once BP stable. Will add PO maintenance Lasix 20mg daily. Discussion w patient/family: The assessment and plan as outlined above was discussed with the patient and/or family members who expressed understanding and agreement. All questions were answered. Thank you for involving us in the care of your patient. Please call with any questions. I will discuss all the above with Dr. Rivas and make changes as necessary. Subjective Principal diagnosis: STEMI Interval history: Pt reports episodes of hemoptysis this AM. Denies chest pain, reports breathing is worse than baseline. Evaluted by PT/OT, social work, who recommend short term rehab--placement has been approved. 24 hour tele AVG HR 104, SR. Objective Vital Signs, Last 4 Hours Temp Pulse Resp BP Pulse Ox 08/11/16 07:48 18 98 08/11/16 07:37 98.1 F 104 18 102/69 94 08/11/16 07:35 102/69 08/11/16 07:00 96 Vital Signs Temp Pulse Resp BP Pulse Ox 08/11/16 07:48 18 98 08/11/16 07:37 98.1 F 104 18 102/69 94 08/11/16 07:35 102/69 08/11/16 07:00 96 08/11/16 04:10 97.9 F 93 16 105/64 95 08/11/16 03:59 16 94 08/10/16 23:25 97.8 F 102 16 103/62 93 08/10/16 20:55 18 96 08/10/16 20:00 97.5 F L 105 18 108/71 97 08/10/16 17:54 105 100/62 97 08/10/16 16:13 16 95 08/10/16 15:45 97.4 F L 114 16 95/65 96 08/10/16 15:21 103 08/10/16 11:23 18 93 08/10/16 11:05 105 95 08/10/16 10:47 98.1 F 107 16 104/64 94 Intake and Output 08/10/16 08/11/16 08/11/16 23:59 07:59 15:59 Intake Total 150 / 150 Output Total 600 / 600 550 / 550 Balance -450 / -450 -550 / -550 Intake: Oral 150 / 150 Output: Urine 600 / 600 550 / 550 Other: Meal Dinner Percent of Meal Consumed 40% Weight 75 kg Patient Weight 08/11/16 23:59 Weight 75 kg General: Conversant, No Apparent Distress HEENT: Atraumatic, Normocephaly, Mucus Membranes Moist Neck: No JVD, Normal carotid pulses Cardiac: Reg Rate and Rhythm, Normal S1 and S2, No Murmur Lungs: Other (diminished) Neuro: Alert and responsive Abdomen: Soft, Non-Tender Skin: No rashes noted on visualized skin Musculoskeletal: No Chest Wall Tenderness Extremities: No Clubbing, No Cyanosis, No Edema, Normal Pulses Results 08/11/16 09:02 08/11/16 09:02 Lab Results 08/11/16 08/11/16 09:02 09:02 WBC 15.2 H Hgb 10.7 L Hct 32.1 L Plt Count 353 Sodium 135 L Potassium 4.1 Chloride 96 L Carbon Dioxide 29 BUN 28 H Creatinine 0.85 Glucose 95 Calcium 8.2 L Short CBC 08/11/16 Range/Units 09:02 WBC 15.2 H (4.3-11.1) K/mcL Hgb 10.7 L (11.5-15.4) g/dL Hct 32.1 L (35.3-44.9) % Plt Count 353 (140-400) K/mcL Neutrophils # 11.8 H (1.6-8.9) K/mcL BMP 08/11/16 Range/Units 09:02 Sodium 135 L (136-145) mEq/L Potassium 4.1 (3.5-4.5) mEq/L Chloride 96 L (98-109) mEq/L Carbon Dioxide 29 (19-29) mEq/L BUN 28 H (7-20) mg/dL Creatinine 0.85 (0.57-1.11) mg/dL Glucose 95 (70-99) mg/dL Calcium 8.2 L (8.6-10.8) mg/dL Active Medications Acetaminophen (Tylenol) 500 mg PO Q6HR PRN PRN Reason: Mild Pain Stop: 02/05/17 20:28 Acetaminophen/Hydrocodone Bitart ([place] 5-325 Mg) 1 tab PO Q4HR PRN PRN Reason: Moderate Pain Stop: 02/05/17 20:31 Last Admin: 08/11/16 03:11 Dose: 1 tab Aspirin (Aspirin) 81 mg PO DAILY JOSH Stop: 02/06/17 09:01 Last Admin: 08/11/16 08:38 Dose: 81 mg Atorvastatin Calcium (Lipitor) 80 mg PO HS JOSH Stop: 02/05/17 21:01 Last Admin: 08/10/16 21:50 Dose: 80 mg Budesonide/Formoterol Fumarate (Symbicort) 2 puff IH BIDR JOSH PRN Reason: Protocol Stop: 02/07/17 22:01 Last Admin: 08/11/16 07:48 Dose: 2 puff Diphenhydramine HCl (Benadryl) 25 mg PO HS PRN PRN Reason: Insomnia Stop: 02/05/17 20:31 Azithromycin 500 mg/ Dextrose 250 mls @ 252 mls/hr IVPB Q24H [facility] Stop: 02/08/17 11:01 Last Infusion: 08/10/16 14:45 Dose: Infused Ceftriaxone Sodium 1,000 mg/ (Dextrose) 100 mls @ 200 mls/hr IVPB DAILY [facility] Stop: 02/09/17 09:01 Last Admin: 08/11/16 08:37 Dose: 200 mls/hr Ipratropium [place] (Atrovent Neb) 0.5 mg IH [id number] [facility] Stop: 02/09/17 12:01 Last Admin: 08/11/16 07:48 Dose: 0.5 mg Levalbuterol HCl (Xopenex) 1.25 mg IH [id number] [facility] Stop: 02/09/17 11:01 Last Admin: 08/11/16 03:56 Dose: 1.25 mg Metoprolol Succinate (Toprol Xl) 12.5 mg PO BID [facility] Stop: 02/09/17 21:01 Last Admin: 08/11/16 08:38 Dose: 12.5 mg Morphine Sulfate (Morphine Sulfate) 4 mg IVP Q3H PRN PRN Reason: Severe Pain (7-10) Stop: 02/05/17 20:28 Last Admin: 08/09/16 14:15 Dose: 4 mg Nitroglycerin (Nitroglycerin) 0.4 mg SL Q5MIN PRN PRN Reason: Chest Pain Stop: 02/05/17 20:31 Ondansetron HCl (Zofran) 4 mg IVP Q8HR PRN PRN Reason: Nausea And Vomiting Stop: 02/05/17 20:28 Last Admin: 08/10/16 19:23 Dose: 4 mg Prednisone (Prednisone) 40 mg PO DAILY [facility] Stop: 02/09/17 09:01 Last Admin: 08/11/16 08:38 Dose: 40 mg Ticagrelor (Brilinta) 90 mg PO BID JOSH Stop: 02/05/17 21:01 Last Admin: 08/11/16 08:38 Dose: 90 mg - Imaging and Cardiology Echo: report reviewed Cardiac cath: report reviewed - EKG Interpretation EKG results cardiology: other (24 hour tele AVG HR 104, SR) - VTE Documentation of Mechanical Device: Intermittent pneumatic compression device Consult Discharge Plan - Plan Referrals: Hillary Renteria, [employer] [Primary Care Provider] - (PATIENT IS GOING TO [facility] NO PCP APPOINTMENT IS NEEDED)
[2016-08-11] MEDS ORDERED: Furosemide 20 MG TABLET PO SCH (10:30)
[2016-08-11] MEDS: Azithromycin 500 MG in D5% in Water 250 ML IVPB SCH (11:58)
--- NOTE | 2016-08-11 12:17 | Pulmonology Progress Note ---
<Nicko Biggs - Last Filed: 08/11/16 16:39> Date of Encounter: 08/11/16 Time of Encounter: 12:16 Assessment and Plan (1) Hemoptysis Current Visit: Yes Status: Acute improved, continues to report 3 episodes of blood tinged sputum this morning, none since constant sputum production, majority without blood denies any shortness of breath only discomfort from deep inhalation from abdominal discomfort hemoglobin stable 10.7 do not recommend bronchoscopy plan to follow up in outpatient clinic recommend repeat CT scan in 2-3 months Pulmonology will sign off at this time. Thank you for allowing us participate in the care of your patient. (2) COPD (chronic obstructive pulmonary disease) Current Visit: Yes Status: Acute known COPD, suspect CAP or exacerbation of COPD 1 ppd smoker smoking cessation encouraged sputum production prior to admission continue scheduled bronchodilators and steroids - steroid taper for home when discharged 40, 30, 20, 10mg CT Chest 08/08 - bilateral lower lobe airspace consolidations suggestive of pneumonia and/or aspiration treating for suspected CAP with Levaquin for dual coverage of UTI but urine culture sensitivities resistant to Levaquin - continue Ceftriaxone and Azithromycin Qualifiers: COPD type: emphysema Emphysema type: unspecified Qualified Code(s): J43.9 - Emphysema, unspecified Subjective Principal diagnosis: STEMI Interval history: No major events overnight. Patient seen and examined at bedside. Continues to report episodes of hemoptysis this morning estimated 3. It continues to be sputum that is blood tinged. Denies any blood clots. She reports some difficulty in breathing due to gas in her belly. Reports no bowel movement over the past few days. She was just given Dulcolax prior to my evaluation. Reports a feeling of nausea but denies any chest pain, shortness of breath or vomiting. She is currently eating her lunch without any difficulty. Objective PUL Vital signs: Last Vital Signs Temp 97.6 F 08/11/16 11:21 Pulse 98 08/11/16 11:21 Resp 18 08/11/16 11:44 BP 96/67 08/11/16 11:21 Pulse Ox 93 08/11/16 11:44 General appearance: no acute distress, alert Eyes: nonicteric ENT: oropharynx moist, other (No obvious blood in the oropharynx) Neck: supple Effort: normal Auscultation: bilateral: clear Cardiovascular: regular rate and rhythm Gastrointestinal: normoactive bowel sounds, soft, non-tender, other (Mildly distended) Extremities: no edema Musculoskeletal: no deformities, ROM normal normal mental status, non-focal exam, pupils equal and round Results - Laboratory Findings CBC and BMP: 08/11/16 09:02 08/11/16 09:02 PT/INR, D-dimer PT 10.4 Seconds (9.4-12.1) 08/06/16 18:24 Abnormal lab findings: Abnormal lab results WBC 15.2 K/mcL (4.3-11.1) H 08/11/16 09:02 RBC 3.15 M/mcL (3.82-4.97) L 08/11/16 09:02 Hgb 10.7 g/dL (11.5-15.4) L 08/11/16 09:02 Hct 32.1 % (35.3-44.9) L 08/11/16 09:02 MCV 101.9 fL (83.0-100.0) H 08/11/16 09:02 MCH 34.0 pg (28.0-33.3) H 08/11/16 09:02 Neutrophils # 11.8 K/mcL (1.6-8.9) H 08/11/16 09:02 APTT 24.2 Seconds (26.0-36.0) L 08/06/16 18:24 Sodium 135 mEq/L (136-145) L 08/11/16 09:02 Chloride 96 mEq/L (98-109) L 08/11/16 09:02 BUN 28 mg/dL (7-20) H 08/11/16 09:02 BUN/Creatinine Ratio 33 (6-26) H 08/11/16 09:02 POC Glucose 132 (58-89) H 08/06/16 20:47 Calcium 8.2 mg/dL (8.6-10.8) L 08/11/16 09:02 Troponin I 1.76 ng/mL (0-0.03) H* 08/06/16 18:24 Urine Color [place] (Yellow) A 08/07/16 11:08 Urine Clarity Turbid (Clear) A 08/07/16 11:08 Ur Specific [place] > 1.030 (1.010-1.025) H 08/07/16 11:08 Urine Blood Moderate (Negative) H 08/07/16 11:08 Urine Nitrite Positive (Negative) A 08/07/16 11:08 Ur Leukocyte Esterase Large (Negative) H 08/07/16 11:08 Urine Microscopic RBC 5-15 per hpf (0-3) H 08/07/16 11:08 Urine Microscopic WBC TNTC per hpf (0-3) H 08/07/16 11:08 Ur Squamous Epith Cells Moderate per lpf (None-Few) H 08/07/16 11:08 Urine Bacteria Many per hpf (None-Few) H 08/07/16 11:08 Ur Culture Indicated? YES (NO) A 08/07/16 11:08 - Microbiology Findings Microbiology Findings: Microbiology, Last 48 Hours 08/07/16 11:08 Urine Culture - Final Urine,Clean Catch Escherichia coli - Clinical Findings Intake & Output: Intake & Output 08/10/16 08/11/16 08/11/16 23:59 07:59 15:59 Intake Total 150 / 150 240 / 240 Output Total 600 / 600 550 / 550 300 / 300 Balance -450 / -450 -550 / -550 -60 / -60 Weight 75 kg - VTE Documentation of Mechanical Device: Intermittent pneumatic compression device Consult Discharge Plan - Plan Instructions: Myocardial Infarction (DC), Heart Failure (DC), Urinary Tract Infection in Women (DC), Chronic Obstructive Pulmonary Disease (DC) Additional Instructions: RISK FACTORS: STOP SMOKING: If you smoke, STOP. Smoking or tobacco use significantly increases your risk of heart disease because nicotine causes the arteries to narrow or constrict. It also causes fats to stick to the artery. Your chances of having a heart attack are greatly increased if you continue to smoke. For more information, call the education line for smoking cessation 5-019-[id number] EAT A LOW FAT/CHOLESTEROL/SODIUM DIET: This diet may help reduce your chances of having a heart attack. LIFTING: With affected extremity: Avoid bending, pushing off and lifting more than 2 pounds for 24 hours The following 48 hours, avoid lifting anything more than 5 pounds Avoid strenuous activity or repetitive motions ACTIVITY: You may walk or climb stairs as tolerated You can resume sexual activity as tolerated In general, you are encouraged to engage in a minimum of 30 minutes or more of moderate intensity physical activity, such as brisk walking, daily or at least 3 -4 times weekly BATHING Do not submerge the site into water (bath tub, hot tub, swimming pool, dishes) for 1 week. This can be a source for infection into the blood stream. You may shower after 24 hours SITE CARE: After 24 hours, you may remove the dressing and leave the site open to air. Keep the site clean and dry. Clean gently and pat dry. You can expect bruising and tenderness that gradually resolve within a week or two. Return to work as instructed per your physician Resume driving as instructed per physician Keep all scheduled follow up appointments Resume medications as instructed IMPORTANT: If prescribed a Platelet Aggregation Inhibitor such as, Plavix, Brilinta or Effient: Duration of therapy is minimum one year These medications are often used in combination with Aspirin in prevention of future heart attacks Never discontinue unless consult with your Recreation Coordinator STROKE (CVA) Risk factors for a stroke are: Age, cigarette smoking, diabetes, excessive alcohol consumption, family history, high blood pressure, overweight, physical inactivity, prior stroke, heart attack, diagnosis of carotid artery stenosis or other artery disease. Warning signs: Sudden numbness or weakness of the face, arm or leg; especially on one side of the body, sudden confusion, trouble speaking or understanding, sudden trouble seeing in one or both eyes, sudden trouble walking, dizziness, loss of balance or coordination, sudden severe headache with no cause. Call 911 or go to the Emergency Room. CONGESTIVE HEART FAILURE: If you have been diagnosed with Congestive Heart Failure (CHF) and your symptoms return, make an appointment with your physician Weigh yourself daily. Notify your physician if you have a weight gain of two or more pounds in one day or five or more pounds in one week. If you experience any difficulty breathing, please call 911 BLEEDING: Although the risk of bleeding is minimal, it can happen. If you have any bleeding from the site, apply firm pressure above the puncture site for 10-15 minutes. If the bleeding does not stop, continue manual pressure and call 911 Contact [facility] ( ) if: You develop a fever greater than 101 degrees Fahrenheit Your site becomes reddened or has any drainage You have an increase in pain or burning at the site or if a large knot forms at the site. If you experience chest pain, shortness of breath, dizziness, or extreme tiredness, stop the activity and rest. Please notify [facility] office if you experience any of these symptoms and they are not relieved by rest please call 911! Referrals: Hillary Renteria, MACHINE LEATHER TRIMMER [Primary Care Provider] - (PATIENT IS GOING TO [facility] NO PCP APPOINTMENT IS NEEDED) Karl Diggs MACHINE LEATHER TRIMMER [Advanced Practice Nurse] - (office will call with appointment due to they make their own appointments) Roni Gonzalez MD [Partnered Physician] - Prescriptions: Azithromycin [Zithromax Tri-Gustavo] 500 mg PO DAILY #4 tablet Cefdinir [Omnicef] 300 mg PO BID #9 capsule HYDROcodone/Acet 5/325 mg [[place] 5-325 mg] 1 tab PO Q6H PRN #28 tablet PRN Reason: Pain predniSONE [Prednisone] 10 mg PO DAILY #1 tab.ds.pk <Roni Gonzalez - Last Filed: 08/11/16 17:28> Date of Encounter: 08/11/16 Objective PUL Vital signs: Last Vital Signs Temp 98.0 F 08/11/16 15:50 Pulse 115 08/11/16 15:50 Resp 18 08/11/16 16:08 BP 104/71 08/11/16 15:50 Pulse Ox 94 08/11/16 16:08 Results - Laboratory Findings CBC and BMP: 08/11/16 09:02 08/11/16 09:02 PT/INR, D-dimer PT 10.4 Seconds (9.4-12.1) 08/06/16 18:24 Abnormal lab findings: Abnormal lab results WBC 15.2 K/mcL (4.3-11.1) H 08/11/16 09:02 RBC 3.15 M/mcL (3.82-4.97) L 08/11/16 09:02 Hgb 10.7 g/dL (11.5-15.4) L 08/11/16 09:02 Hct 32.1 % (35.3-44.9) L 08/11/16 09:02 MCV 101.9 fL (83.0-100.0) H 08/11/16 09:02 MCH 34.0 pg (28.0-33.3) H 08/11/16 09:02 Neutrophils # 11.8 K/mcL (1.6-8.9) H 08/11/16 09:02 APTT 24.2 Seconds (26.0-36.0) L 08/06/16 18:24 Sodium 135 mEq/L (136-145) L 08/11/16 09:02 Chloride 96 mEq/L (98-109) L 08/11/16 09:02 BUN 28 mg/dL (7-20) H 08/11/16 09:02 BUN/Creatinine Ratio 33 (6-26) H 08/11/16 09:02 POC Glucose 132 (58-89) H 08/06/16 20:47 Calcium 8.2 mg/dL (8.6-10.8) L 08/11/16 09:02 Troponin I 1.76 ng/mL (0-0.03) H* 08/06/16 18:24 Urine Color [place] (Yellow) A 08/07/16 11:08 Urine Clarity Turbid (Clear) A 08/07/16 11:08 Ur Specific [place] > 1.030 (1.010-1.025) H 08/07/16 11:08 Urine Blood Moderate (Negative) H 08/07/16 11:08 Urine Nitrite Positive (Negative) A 08/07/16 11:08 Ur Leukocyte Esterase Large (Negative) H 08/07/16 11:08 Urine Microscopic RBC 5-15 per hpf (0-3) H 08/07/16 11:08 Urine Microscopic WBC TNTC per hpf (0-3) H 08/07/16 11:08 Ur Squamous Epith Cells Moderate per lpf (None-Few) H 08/07/16 11:08 Urine Bacteria Many per hpf (None-Few) H 08/07/16 11:08 Ur Culture Indicated? YES (NO) A 08/07/16 11:08 - Clinical Findings Intake & Output: Intake & Output 08/11/16 08/11/16 08/11/16 07:59 15:59 23:59 Intake Total 360 / 360 Output Total 550 / 550 300 / 300 1200 / 1200 Balance -550 / -550 60 / 60 -1200 / -1200 Weight 75 kg - Attending Attestation I examined this patient and my medical decision-making was reviewed with the ENGINEERING AND SCIENTIFIC PROGRAMMER/PA/Advanced Practice Nurse/Resident Physician. I agree with the documented findings, disposition and treatment plan as described except to the extent set forth below. Patient seen and examined. Labs, radiology, chart personally reviewed. Agree with resident's history and physical, assessment, plan with following comments: COMMUNITY DEVELOPMENT OFFICER: Patient follows commands, Pulmonary: Acceptable oxygenation and ventilation. Continue taper systemic steroid/prednisone and antibiotic as outpatient for treatment of COPD exacerbation and follow-up CT chest in 2-3 months and then kind follow-up as outpatient. Smoking cessation is important and continuation of bronchodilators with oxygen. The patient will need pulmonary function test and cardiopulmonary rehabilitation.
--- NOTE | 2016-08-11 14:27 | Discharge Summary ---
Date of Encounter: 08/11/16 Time of Encounter: 14:25 - Discharge Diagnosis (1) ST elevation myocardial infarction (STEMI) Priority: Primary Status: Acute Comments: Per cardiology: Patient presented with acute STEMI s/p emergent LHC with 1 SONIDO to proximal LAD, 30% stenosis mid circ, OM 1 50%, 50% stenosis mid RCA. Right radial access site without hematoma or ecchymosis. Remains chest pain free. DAPT (ASA and Brilinta) uninterrupted x 1 year. Continue Statin and BB. Echo LVEF 35%, moderate LV systolic dysfunction with regional variations, indeterminate diastolic function. PT/OT saw pt and recommended short term rehab placement at discharge. Social work following as well, [facility] in [place] with female bed available. Insurance approval currently pending. Hospitalist and pulmonary have signed off. Discharge to inpt rehab today--[facility] in [place] via ambulance transport due to debility and O2 requirements. Qualifiers: Involved coronary artery: LAD coronary artery Qualified Code(s): I21.02 - ST elevation (STEMI) myocardial infarction involving left anterior descending coronary artery (2) Renal cancer Priority: Secondary Status: Suspected Comments: Hx of renal cancer, previously declined further work up or intervention. Patient still declines further testing or intervention for possible renal cancer. Patient aware of possible cancer, potential metastasis, and risk of . Patient still declines further intervention. Qualifiers: Laterality: left Qualified Code(s): C64.2 - Malignant neoplasm of left kidney, except renal pelvis (3) Hemoptysis Priority: Secondary Status: Acute Comments: Per cardiology: Patient with hemoptysis this AM, but documented as improving. Unable to stop asa or brilinta due to recent SONIDO. Possible external compression of RV on echocardiogram. Concerning with history of renal cancer. HGB 10.7 today, was 10.4 yesterday, stable. Pulmonary signed off. No plan for bronch at this time. Follow-up with pulmonology as outpt. (4) Ischemic cardiomyopathy Priority: Secondary Status: Acute Comments: Per cardiology: STEMI s/p revascularization, LVEF 35% per echo. On BB, unable to add sudhakar inhibitor at this time due to hypotension. BPs curerntly 80-100s systolic. Consider addition of sudhakar inhibitor at outpt follow-up if BP will tolerate. On PO maintenance Lasix dose of 20mg daily. Recheck echo as outpt. (5) Tachycardia Priority: Secondary Status: Acute Comments: 24 hour tele AVG HR 104, SR. On Toprol XL 12.5mg BID. BP marginal, unable to increase. At follow-up, consider Ivabradine if HR remains tachycardic on highest tolerated BB dose. (6) UTI (urinary tract infection) Priority: Secondary Status: Acute Comments: Urine with E.coli, sensitive to Zosyn/Cefalosporins, resistant to levoflox, medication regimen changed to ceftriaxone/Azithromycin, continue for 7 days of cephalosporin per hospitalist. Today is day 3. Per hospitalist, discharge on Omnicef 300mg bid to complete 7 days of therapy. Qualifiers: Urinary tract infection type: acute cystitis Hematuria presence: with hematuria Qualified Code(s): N30.01 - Acute cystitis with hematuria (7) COPD (chronic obstructive pulmonary disease) Priority: Secondary Status: Acute Comments: Known COPD, suspected CAP or exacerbation of COPD. 1 ppd smoker. Smoking cessation encouraged. Will continue scheduled bronchodilators and steroids--discussed with pulm, will rx steroid dose pack. CT Chest 08/08 - bilateral lower lobe airspace consolidations suggestive of pneumonia and/or aspiration. Treating for suspected CAP with Levaquin for dual coverage of UTI but urine culture sensitivities resistant to Levaquin. Continue Ceftriaxone and Azithromycin. Will switch both to PO, 7 days of omnicef and 5 days of azithromycin per hospitalist. Follow-up wit pulmonology as outpt. Qualifiers: COPD type: emphysema Emphysema type: unspecified Qualified Code(s): J43.9 - Emphysema, unspecified - Discharge Medications Prescriptions: Azithromycin [Zithromax Tri-Gustavo] 500 mg PO DAILY #4 tablet Cefdinir [Omnicef] 300 mg PO BID #9 capsule HYDROcodone/Acet 5/325 mg [[place] 5-325 mg] 1 tab PO Q6H PRN #28 tablet PRN Reason: Pain predniSONE [Prednisone] 10 mg PO DAILY #1 tab.ds.pk Home Medications: Bupropion HCl [Wellbutrin Xl] 300 mg PO QAM 08/07/16 [History] Guaifenesin [Mucinex] 600 mg PO BID PRN 08/07/16 [History] Vit C/Vit E/Lutein/Min/[place]-3 [Ocuvite Softgel] 1 cap PO DAILY 08/07/16 [ History] Aspirin 81 mg PO DAILY tab.chew 08/11/16 [Rx] Atorvastatin [Lipitor] 80 mg PO HS tablet 08/11/16 [Rx] Azithromycin [Zithromax Tri-Gustavo] 500 mg PO DAILY #4 tablet 08/11/16 [Rx] Budesonide/Formoterol 80/4.5 [Symbicort 80/4.5] 2 puff IH BIDR inhaler [Rx] Cefdinir [Omnicef] 300 mg PO BID #9 capsule 08/11/16 [Rx] DiphenhydraMINE [Benadryl] 25 mg PO HS PRN #0 capsule 08/11/16 [Rx] Furosemide [Lasix] 20 mg PO DAILY tablet 08/11/16 [Rx] HYDROcodone/Acet 5/325 mg [[place] 5-325 mg] 1 tab PO Q6H PRN #28 tablet 08/11/16 [Rx] Ipratropium Neb [Atrovent Neb] 0.5 mg IH [id number] inhsol 08/11/16 [Rx] Levalbuterol Neb [Xopenex Neb] 1.25 mg IH [id number] vial.neb 08/11/16 [Rx] Metoprolol XL (24 HR) Succ [Toprol Xl] 12.5 mg PO BID tab.er.24h 08/11/16 [Rx] Nitroglycerin 0.4 mg SL Q5MIN PRN #0 tab.subl 08/11/16 [Rx] Ticagrelor [Brilinta] 90 mg PO BID tablet 08/11/16 [Rx] predniSONE [Prednisone] 10 mg PO DAILY #1 tab.ds.pk 08/11/16 [Rx] Allergies/Adverse Reactions: Allergies Influenza Virus Vaccines Allergy (Verified 08/06/16 18:28) Hives Procedures/tests Complete & Pending: Procedures Performed prior 72 hours Category Date Time Status CT chest w/o contrast [CT chest wo con] [CT] Routine Cat Scan 08/08/16 14:00 Completed ECG 12 lead ECG [ECG] Routine Y 08/10/16 20:04 Completed Date of admission: 08/06/16 20:27 Primary care physician: Hillary Renteria, Consults: 08/07/16 09:35 Consult to Bar Attendant [CONS] Routine Reason for SW Consult: Family concerned regarding patient's ability to care for self at home. 08/07/16 10:48 Consult to Hospitalist [CONS] Routine Consulting Provider: Hospitalist Sly Reason for Consult: STEMI with urinary symptoms and cough with possible renal cancer. Call Completed: Yes 08/08/16 12:34 Consult to Pulmonology [CONS] Routine Consulting Provider: [facility] Reason for Consult: hemoptysis, history of renal cancer with no intervention. Call Completed: Yes 08/09/16 12:21 Consult to Physical Therapy [CONS] Routine Comment: Evaluate, develop and implement POC Reason for Consult: Patient with STEMI. 08/09/16 14:08 Consult to Occupational Therapy [CONS] Routine Comment: Evaluate, develop and implement POC Reason for Consult: POC Discharging clinician: Karl Diggs Anticipated date of discharge: 08/11/16 - Patient Status Disposition: Transfer SNF Condition: Fair Functional capacity at discharge: uses cane/walker Overall status at discharge: patient is not back to baseline - Discharge Instructions Instructions: Myocardial Infarction (DC), Heart Failure (DC), Urinary Tract Infection in Women (DC), Chronic Obstructive Pulmonary Disease (DC) Follow Up With: Hillary Renteria CNP [Primary Care Provider] - (PATIENT IS GOING TO [facility] NO PCP APPOINTMENT IS NEEDED) Karl Diggs CNP [Advanced Practice Nurse] - (office will call with appointment due to they make their own appointments) Roni Gonzalez MD [Partnered Physician] - Additional Instructions: RISK FACTORS: STOP SMOKING: If you smoke, STOP. Smoking or tobacco use significantly increases your risk of heart disease because nicotine causes the arteries to narrow or constrict. It also causes fats to stick to the artery. Your chances of having a heart attack are greatly increased if you continue to smoke. For more information, call the education line for smoking cessation 6-328-DLAXVJV EAT A LOW FAT/CHOLESTEROL/SODIUM DIET: This diet may help reduce your chances of having a heart attack. LIFTING: With affected extremity: Avoid bending, pushing off and lifting more than 2 pounds for 24 hours The following 48 hours, avoid lifting anything more than 5 pounds Avoid strenuous activity or repetitive motions ACTIVITY: You may walk or climb stairs as tolerated You can resume sexual activity as tolerated In general, you are encouraged to engage in a minimum of 30 minutes or more of moderate intensity physical activity, such as brisk walking, daily or at least 3 -4 times weekly BATHING Do not submerge the site into water (bath tub, hot tub, swimming pool, dishes) for 1 week. This can be a source for infection into the blood stream. You may shower after 24 hours SITE CARE: After 24 hours, you may remove the dressing and leave the site open to air. Keep the site clean and dry. Clean gently and pat dry. You can expect bruising and tenderness that gradually resolve within a week or two. Return to work as instructed per your physician Resume driving as instructed per physician Keep all scheduled follow up appointments Resume medications as instructed IMPORTANT: If prescribed a Platelet Aggregation Inhibitor such as, Plavix, Brilinta or Effient: Duration of therapy is minimum one year These medications are often used in combination with Aspirin in prevention of future heart attacks Never discontinue unless consult with your Dairy Lab Technician STROKE (CVA) Risk factors for a stroke are: Age, cigarette smoking, diabetes, excessive alcohol consumption, family history, high blood pressure, overweight, physical inactivity, prior stroke, heart attack, diagnosis of carotid artery stenosis or other artery disease. Warning signs: Sudden numbness or weakness of the face, arm or leg; especially on one side of the body, sudden confusion, trouble speaking or understanding, sudden trouble seeing in one or both eyes, sudden trouble walking, dizziness, loss of balance or coordination, sudden severe headache with no cause. Call 911 or go to the Emergency Room. CONGESTIVE HEART FAILURE: If you have been diagnosed with Congestive Heart Failure (CHF) and your symptoms return, make an appointment with your physician Weigh yourself daily. Notify your physician if you have a weight gain of two or more pounds in one day or five or more pounds in one week. If you experience any difficulty breathing, please call 911 BLEEDING: Although the risk of bleeding is minimal, it can happen. If you have any bleeding from the site, apply firm pressure above the puncture site for 10-15 minutes. If the bleeding does not stop, continue manual pressure and call 911 Contact [facility] ( ) if: You develop a fever greater than 101 degrees Fahrenheit Your site becomes reddened or has any drainage You have an increase in pain or burning at the site or if a large knot forms at the site. If you experience chest pain, shortness of breath, dizziness, or extreme tiredness, stop the activity and rest. Please notify [facility] office if you experience any of these symptoms and they are not relieved by rest please call 911! - Diet and Activity Activity: as per physical therapy, wear oxygen at all times Diet: low fat, low cholesterol, low salt diet - Hospital Course Hospital course: Ms. Bernardo is a 81 year old female admitted 08/06/16 when she presented with acute STEMI s/p emergent LHC with 1 SONIDO to proximal LAD, 30% stenosis mid circ, OM 1 50%, 50% stenosis mid RCA. Has remained chest pain free. DAPT (ASA and Brilinta) uninterrupted x 1 year. Continue Statin and BB. Echo LVEF 35%, moderate LV systolic dysfunction with regional variations, indeterminate diastolic function. On BB, unable to add sudhakar inhibitor at this time due to hypotension. BPs curerntly 80-100s systolic. Consider addition of sudhakar inhibitor at outpt follow-up if BP will tolerate. On PO maintenance Lasix dose of 20mg daily. Recheck echo as outpt. PT/OT saw pt and recommended short term rehab placement at discharge. Social work following as well, [facility] in [place] with female bed available. Insurance approval obtained. Hospitalist and pulmonary have signed off. Discharge to rehab today to [facility] in [place]. She also has Hx of renal cancer, previously declined further work up or intervention. Patient still declines further testing or intervention for possible renal cancer. Patient aware of possible cancer, potential metastasis, and risk of . Patient still declines further intervention. Hospital stay complicated by hemoptysis, but documented as improving. Unable to stop asa or brilinta due to recent SONIDO. Possible external compression of RV on echocardiogram. Concerning with history of renal cancer. HGB 10.7 today, was 10.4 yesterday, stable. Pulmonary signed off. No plan for bronch at this time. Follow-up with pulmonology as outpt. Pt also found to have sepsis, PNA vs COPD exacerbation, UTI. Urine with E.coli, sensitive to Zosyn/Cefalosporins, resistant to levoflox, medication regimen changed to ceftriaxone/Azithromycin, continue for 7 days of cephalosporin per hospitalist. Today is day 3. Per hospitalist, discharge on Omnicef 300mg bid to complete 7 days of therapy. Continue scheduled bronchodilators and steroids--d/c with steriod dose pack for PNA vs COPD exacerbation. CT Chest 08/08 - bilateral lower lobe airspace consolidations suggestive of pneumonia and/or aspiration. Treating with IV azithromycin, switching to PO, needs 5 days total of azithromycin per hospitalist. Follow-up wit pulmonology as outpt. Pt has had sinus tach, 24 hour tele AVG HR 104, SR. On Toprol XL 12.5mg BID. BP marginal, unable to increase. At follow-up, consider Ivabradine if HR remains tachycardic on highest tolerated BB dose. Pt being discharged to rehab in stable condition. Pt needs ambulance transfer due debility and O2 requirements. Follow-up as outpt in 1 week. - Time Spent with Patient Total time spent providing and/or coordinating discharge services: Physical Examination Vital Signs, Last 4 Hours Temp Pulse Resp BP Pulse Ox 08/11/16 11:44 18 93 08/11/16 11:21 97.6 F 98 18 96/67 92 08/11/16 11:00 100 Vital Signs Temp Pulse Resp BP Pulse Ox 08/11/16 11:44 18 93 08/11/16 11:21 97.6 F 98 18 96/67 92 08/11/16 11:00 100 08/11/16 07:48 18 98 08/11/16 07:37 98.1 F 104 18 102/69 94 08/11/16 07:35 102/69 08/11/16 07:00 96 08/11/16 04:10 97.9 F 93 16 105/64 95 08/11/16 03:59 16 94 08/10/16 23:25 97.8 F 102 16 103/62 93 08/10/16 20:55 18 96 08/10/16 20:00 97.5 F L 105 18 108/71 97 08/10/16 17:54 105 100/62 97 08/10/16 16:13 16 95 08/10/16 15:45 97.4 F L 114 16 95/65 96 08/10/16 15:21 103 Intake and Output 08/10/16 08/11/16 08/11/16 23:59 07:59 15:59 Intake Total 150 / 150 360 / 360 Output Total 600 / 600 550 / 550 300 / 300 Balance -450 / -450 -550 / -550 60 / 60 Intake: Oral 150 / 150 360 / 360 Output: Urine 600 / 600 550 / 550 300 / 300 Other: Meal Dinner Lunch Percent of Meal Consumed 40% 50% Weight 75 kg Patient Weight 08/11/16 23:59 Weight 75 kg General: Conversant, No Apparent Distress HEENT: Atraumatic, Normocephaly, Mucus Membranes Moist Neck: No JVD, Normal carotid pulses Cardiac: Reg Rate and Rhythm, Normal S1 and S2, No Murmur Lungs: Other (dimished) Neuro: Alert and responsive, No focal deficits noted Abdomen: Soft, Non-Tender Skin: No rashes noted on visualized skin Musculoskeletal: No Chest Wall Tenderness Extremities: No Clubbing, No Cyanosis, No Edema, Normal Pulses - VTE Documentation of Mechanical Device: Intermittent pneumatic compression device
--- NOTE | 2016-08-11 15:51 | Physician Discharge Referral ---
ExtendedCare Referral Info Transfer To: [facility] Provider in Charge after Transfer: PCP Institutional Level of Care: Skilled - Diagnosis (1) ST elevation myocardial infarction (STEMI) Priority: Primary Status: Acute (2) Renal cancer Priority: Secondary Status: Suspected (3) Hemoptysis Priority: Secondary Status: Acute (4) Ischemic cardiomyopathy Priority: Secondary Status: Acute (5) Tachycardia Priority: Secondary Status: Acute (6) UTI (urinary tract infection) Priority: Secondary Status: Acute (7) COPD (chronic obstructive pulmonary disease) Priority: Secondary Status: Acute Prognosis: Fair Aware of Diagnosis: Patient, Family Aware of Prognosis: Patient, Family - Transfer Medications Prescriptions: Azithromycin [Zithromax Tri-Gustavo] 500 mg PO DAILY #4 tablet Cefdinir [Omnicef] 300 mg PO BID #9 capsule HYDROcodone/Acet 5/325 mg [[place] 5-325 mg] 1 tab PO Q6H PRN #28 tablet PRN Reason: Pain predniSONE [Prednisone] 10 mg PO DAILY #1 tab.ds.pk Home Medications: Bupropion HCl [Wellbutrin Xl] 300 mg PO QAM 08/07/16 [History] Guaifenesin [Mucinex] 600 mg PO BID PRN 08/07/16 [History] Vit C/Vit E/Lutein/Min/[place]-3 [Ocuvite Softgel] 1 cap PO DAILY 08/07/16 [ History] Aspirin 81 mg PO DAILY tab.chew 08/11/16 [Rx] Atorvastatin [Lipitor] 80 mg PO HS tablet 08/11/16 [Rx] Azithromycin [Zithromax Tri-Gustavo] 500 mg PO DAILY #4 tablet 08/11/16 [Rx] Budesonide/Formoterol 80/4.5 [Symbicort 80/4.5] 2 puff IH BIDR inhaler [Rx] Cefdinir [Omnicef] 300 mg PO BID #9 capsule 08/11/16 [Rx] DiphenhydraMINE [Benadryl] 25 mg PO HS PRN #0 capsule 08/11/16 [Rx] Furosemide [Lasix] 20 mg PO DAILY tablet 08/11/16 [Rx] HYDROcodone/Acet 5/325 mg [[place] 5-325 mg] 1 tab PO Q6H PRN #28 tablet 08/11/16 [Rx] Ipratropium Neb [Atrovent Neb] 0.5 mg IH [id number] inhsol 08/11/16 [Rx] Levalbuterol Neb [Xopenex Neb] 1.25 mg IH [id number] vial.neb 08/11/16 [Rx] Metoprolol XL (24 HR) Succ [Toprol Xl] 12.5 mg PO BID tab.er.24h 08/11/16 [Rx] Nitroglycerin 0.4 mg SL Q5MIN PRN #0 tab.subl 08/11/16 [Rx] Ticagrelor [Brilinta] 90 mg PO BID tablet 08/11/16 [Rx] predniSONE [Prednisone] 10 mg PO DAILY #1 tab.ds.pk 08/11/16 [Rx] Allergies/Adverse Reactions: Allergies Influenza Virus Vaccines Allergy (Verified 08/06/16 18:28) Hives - Respiratory Orders Oxygen / L per min (2L) Smoking Cessation: Smoking cessation has been advised. For more information, call the [employer] Tobacco Quit Line at 0-261-AYMR-NOW. - Advance Directives Code Status: DNR-Arrest/Don't Intubate CERTIFICATION: I certify that the transfer of the above named patient to an Extended Care Facility is necessary for the continuing treatment of the diagnosis listed. The above information is true and accurate reflection of patient's current condition. Confidential - Redisclosure prohibited without a patient's written consent.
[2016-08-11 15:53] VITALS: BP 104/71
--- NOTE | 2016-08-11 19:08 | Electrocardiograph Report ---
[address] [place] [address] Test Date: 2016-08-10 Pat Name: Pushpa Bernardo Department: 110 Room: 2N06 Gender: F Mover: NAMRATA : 1935 Requested By: Chase Whelan Order Number: [id number] Reading MD: Da Byers MD Measurements Intervals [place] Rate: 131 P: -87 DC: 162 QRS: 94 QRSD: 93 T: 52 QT: 307 QTc: 384 Interpretive Statements SUPRAVENTRICULAR TACHYCARDIA LOW QRS VOLTAGE IN EXTREMITY LEADS ANTEROLATERAL MYOCARDIAL INFARCTION, POSSIBLY RECENT Electronically Signed On 08-11-2016 19:06:22 EDT by Da Byers MD
== END 2016-08-11 18:37 | DRG 246 ==
LOC: ICNU 18:17 → EMEROO 18:17 → ICNU 19:05 → SUATTDRO 20:27 → 2NNU 08-09 14:20
PROVIDERS: ADMIT Emergency Medicine; ATTEND Internal Medicine

== ENCOUNTER 2016-09-11 20:09 | Inpatient (IN) ==
[2016-09-11] MEDS ORDERED: methylPREDNISolone 125 MG/2 ML VIAL IVP ONE (20:13)
[2016-09-11] MEDS ORDERED: Ipratropium/Albuterol Neb 3 ML IH ONE (20:13)
--- NOTE | 2016-09-11 20:19 | Emergency Department Note ---
Disposition Clinical Impression: COPD (chronic obstructive pulmonary disease) Qualifiers: COPD type: unspecified COPD Qualified Code(s): J44.9 - Chronic obstructive pulmonary disease, unspecified CHF (congestive heart failure) Qualifiers: Congestive heart failure type: unspecified congestive heart failure type Congestive heart failure chronicity: acute Qualified Code(s): I50.9 - Heart failure, unspecified Disposition: Admitted As Inpatient Condition: Fair Referrals: NO,PCP [Non-Partnered Physician] - Forms: ED Satisfaction Letter Time of Disposition: 21:28 SOB HPI - General Chief Complaint: ED Shortness of Breath/Dyspnea Stated Complaint: NEIL Time Seen by Provider: 09/11/16 20:12 Source: patient, EMS Mode of arrival: EMS Limitations: no limitations Nursing Notes Reviewed: Yes Vital Signs Reviewed: Yes - History of Present Illness 81-year-old who comes in complaining of shortness of breath and generalized discomfort that began the last 2-3 days. Patient states she thinks she has pneumonia. She did have stents placed back in July of this year. Pt Subjective Complaint: shortness of breath Onset (ago): day(s) Context: recent illness Severity: moderate Consistency/Duration: constant Improves with: nothing Worsens with: nothing Known history of: COPD Associated symptoms: Reports: chest pain, fever, cough, wheezing Treatment prior to arrival: oxygen Cough Description: Involuntary Cough Frequency: Intermittent - Related Data Home Medications Medication Instructions Recorded Confirmed Bupropion HCl [Wellbutrin Xl] 300 mg PO QAM 08/07/16 08/07/16 Guaifenesin [Mucinex] 600 mg PO BID PRN 08/07/16 08/07/16 Vit C/Vit E/Lutein/Min/[place]-3 1 cap PO DAILY 08/07/16 08/07/16 [Ocuvite Softgel] Previous Rx's Medication Instructions Recorded Aspirin 81 mg PO DAILY tab.chew 08/11/16 Atorvastatin [Lipitor] 80 mg PO HS tablet 08/11/16 Azithromycin [Zithromax Tri-Gustavo] 500 mg PO DAILY #4 tablet 08/11/16 Budesonide/Formoterol 80/4.5 2 puff IH BIDR inhaler 08/11/16 [Symbicort 80/4.5] Cefdinir [Omnicef] 300 mg PO BID #9 capsule 08/11/16 DiphenhydraMINE [Benadryl] 25 mg PO HS PRN #0 capsule 08/11/16 Furosemide [Lasix] 20 mg PO DAILY tablet 08/11/16 HYDROcodone/Acet 5/325 mg [[place] 1 tab PO Q6H PRN #28 tablet 08/11/16 5-325 mg] Ipratropium Neb [Atrovent Neb] 0.5 mg IH [id number] inhsol 08/11/16 Levalbuterol Neb [Xopenex Neb] 1.25 mg IH [id number] vial.neb 08/11/16 Metoprolol XL (24 HR) Succ [Toprol 12.5 mg PO BID tab.er.24h 08/11/16 Xl] Nitroglycerin 0.4 mg SL Q5MIN PRN #0 tab.subl 08/11/16 Ticagrelor [Brilinta] 90 mg PO BID tablet 08/11/16 predniSONE [Prednisone] 10 mg PO DAILY #1 tab.ds.pk 08/11/16 Allergies Allergy/AdvReac Type Severity Reaction Status Date / Time Influenza Virus Vaccines Allergy Hives Verified 08/06/16 18:28 All systems ED: reviewed and negative except as stated. Constitutional: Denies: fever, chills, weakness, weight change Eyes: Denies: eye pain, eye discharge, vision change ENT ED: Denies: ear pain, throat pain, dental pain, hearing loss, epistaxis, congestion, dysphagia Cardiovascular: Denies: chest pain, palpitations, dyspnea on exertion, edema, syncope Respiratory: Reports: cough, dyspnea, wheezes. Denies: hemoptysis, stridor Gastrointestinal: Denies: abdominal pain, nausea, vomiting, diarrhea, constipation, hematemesis, melena, hematochezia Genitourinary: Denies: dysuria, frequency, hematuria, discharge Musculoskeletal: Denies: back pain, neck pain, arthralgia, myalgia Integumentary: Denies: rash, abrasion, lesions Neurological: Denies: headache, weakness, numbness, paresthesias, confusion, abnormal gait, vertigo Psychiatric: Denies: anxiety, depression, suicidal thoughts, homicidal thoughts , auditory hallucinations, visual hallucinations Endocrine: Denies: fatigue Hematological/Lymphatic: Denies: easy bleeding, easy bruising Allergic/Immunologic: Denies: facial swelling, urticaria Past Medical History - Past Medical History Medical history: Reports: cancer (Left renal carcinoma diagnosed in 2013, does not wish to have further diagnostic testing or treatment), COPD (Not oxygen dependent), GERD, hypertension, other (Breast benign tumor status post left lumpectomy, liver cysts, tobacco use, diverticulosis, emphysema, vertigo, hypertension) Surgical history: Reports: other (Partial hysterectomy, left breast lumpectomy, right foot surgery and eye surgery) Psychiatric history: Reports: no psych history - Social History Smoking Status: Current every day smoker Smokeless Tobacco Status: No Alcohol use: Reports: none Drug use: Reports: none Physical Exam - General Limitations: no limitations General appearance: alert, in no apparent distress - Head Head exam: atraumatic, normocephalic, normal inspection - Eye Eye exam: Present: normal appearance, PERRL, EOMI - ENT ENT exam: normal exam, normal oropharynx, mucous membranes moist - Neck Neck exam: Present: normal inspection, full ROM, trachea midline - Chest Chest inspection: Present: normal inspection, symmetric chest wall rise - Respiratory Respiratory exam: Present: wheezes - Cardiovascular Cardiovascular exam: Present: normal rhythm, tachycardia, normal heart sounds - Abdominal Exam Abdominal exam: Present: soft, Non-Tender. Absent: tenderness, distention, guarding, rebound, rigidity - Extremities Exam Extremities exam: Present: normal inspection, full ROM. Absent: tenderness, pedal edema - Expanded Lower Extremity Exam Neurovascular/Tendon exam: Absent: motor deficit, sensory deficit, tendon deficit Course - Reevaluation(s) Reevaluation #1: 81-year-old with a recent ID comes in with increasing shortness of breath and has a history of COPD. Did review an echo from early August that showed an EF of 35%. Chest x-ray some congestion with possible pneumonia. EKG did show some ST segment elevation but was not as bad as a previous EKG. The current EKG and previous were sent to interventional list who did not feel this represented a STEMI. He was given IV antibiotics. Time: 21:26 - Consultations Consultation #1: Discussed with , EKG sent for his review. Time: 20:37 Consultation #2: Review of EKG by Dr. Byers shows ST segment elevation that is less than previous EKG without reciprocal change, not STEMI. Time: 20:49 Consultation #3: Discussed with Dr. Valdez, admit. Time: 21:26 Vital Signs Temperature 98.5 F 09/11/16 20:11 Pulse Rate 125 09/11/16 20:11 Respiratory Rate 22 09/11/16 20:11 Blood Pressure 149/74 09/11/16 20:11 O2 Sat by Pulse Oximetry 99 09/11/16 20:11 Temperature 98.5 F 09/11/16 20:11 Pulse Rate 102 09/11/16 21:24 Respiratory Rate 20 09/11/16 21:24 Blood Pressure 131/95 09/11/16 21:24 O2 Sat by Pulse Oximetry 94 09/11/16 21:24 Oxygen Delivery Oxygen Delivery Nasal Cannula Shortness of Breath/Dyspnea - Lab Data Result diagrams: 09/11/16 20:30 09/11/16 20:30 Lab Results 09/11/16 09/11/16 09/11/16 Range/Units 20:30 20:30 20:30 WBC 10.3 (4.3-11.1) K/mcL RBC 3.77 L (3.82-4.97) M/mcL Hgb 12.5 (11.5-15.4) g/dL Hct 38.7 (35.3-44.9) % MCV 102.7 H (83.0-100.0) fL MCH 33.2 (28.0-33.3) pg MCHC 32.3 (31.6-35.5) g/dL RDW 13.6 (11.5-14.5) % Plt Count 447 H (140-400) K/mcL MPV 8.9 L (9.4-12.4) fL Immature Gran % 0.8 (0-4) % Seg Neutrophils % 61.2 % Lymphocytes % 28.9 % Monocytes % 7.3 % Eosinophils % 1.2 % Basophils % 0.6 % Neutrophils # 6.3 (1.6-8.9) K/mcL Lymphocytes # 3.0 (0.6-4.6) K/mcL Monocytes # 0.8 (0.0-1.3) K/mcL Eosinophils # 0.1 (0.0-0.6) K/mcL Basophils # 0.1 (0.0-0.2) K/mcL ABG pH (7.32-7.45) pH Units ABG pCO2 (35-45) mmHg ABG pO2 (85-104) mmHg ABG HCO3 (21-27) mEQ/L ABG Total CO2 (20-26) mEq/L ABG O2 Saturation (95-98) % ABG Base Excess (-2.0 to 3.0) mEq/L Liter Flow L/MIN Blood Gas Modality Sodium 137 (136-145) mEq/L Potassium 4.5 (3.5-4.5) mEq/L Chloride 102 (98-109) mEq/L Carbon Dioxide 25 (19-29) mEq/L BUN 12 (7-20) mg/dL Creatinine 1.03 (0.57-1.11) mg/dL Est GFR ( Amer) > 60 (> 60) Est GFR (Non-Af Amer) 52 L (> 60) BUN/Creatinine Ratio 12 (6-26) Glucose 283 H (70-99) mg/dL Calculated Osmolality 294 (280-300) Lactic Acid 2.7 H (0.5-2.2) mmol/L Calcium 8.8 (8.6-10.8) mg/dL Troponin I (0-0.03) ng/mL B-Natriuretic Peptide (0-100) pg/mL 09/11/16 09/11/16 09/11/16 Range/Units 20:30 20:30 20:45 WBC (4.3-11.1) K/mcL RBC (3.82-4.97) M/mcL Hgb (11.5-15.4) g/dL Hct (35.3-44.9) % MCV (83.0-100.0) fL MCH (28.0-33.3) pg MCHC (31.6-35.5) g/dL RDW (11.5-14.5) % Plt Count (140-400) K/mcL MPV (9.4-12.4) fL Immature Gran % (0-4) % Seg Neutrophils % % Lymphocytes % % Monocytes % % Eosinophils % % Basophils % % Neutrophils # (1.6-8.9) K/mcL Lymphocytes # (0.6-4.6) K/mcL Monocytes # (0.0-1.3) K/mcL Eosinophils # (0.0-0.6) K/mcL Basophils # (0.0-0.2) K/mcL ABG pH 7.37 (7.32-7.45) pH Units ABG pCO2 41 (35-45) mmHg ABG pO2 92 (85-104) mmHg ABG HCO3 23.7 (21-27) mEQ/L ABG Total CO2 25.0 (20-26) mEq/L ABG O2 Saturation 97 (95-98) % ABG Base Excess -1.5 (-2.0 to 3.0) mEq/L Liter Flow 3 L/MIN Blood Gas Modality NC Sodium (136-145) mEq/L Potassium (3.5-4.5) mEq/L Chloride (98-109) mEq/L Carbon Dioxide (19-29) mEq/L BUN (7-20) mg/dL Creatinine (0.57-1.11) mg/dL Est GFR ( Amer) (> 60) Est GFR (Non-Af Amer) (> 60) BUN/Creatinine Ratio (6-26) Glucose (70-99) mg/dL Calculated Osmolality (280-300) Lactic Acid (0.5-2.2) mmol/L Calcium (8.6-10.8) mg/dL Troponin I 0.06 H* (0-0.03) ng/mL B-Natriuretic Peptide 3593 H (0-100) pg/mL
[2016-09-11] MEDS ORDERED: *HR* LORazepam 2 MG/ML VIAL IVP ONE (20:32)
[2016-09-11 20:39] LABS: Basophils # 0.1 K/mcL (0.0-0.2); Basophils % 0.6 %; Eosinophils # 0.1 K/mcL (0.0-0.6); Eosinophils % 1.2 %; Hematocrit 38.7 % (35.3-44.9); Hemoglobin 12.5 g/dL (11.5-15.4); Immature Granulocytes % 0.8 % (0-4); Lymphocytes % 28.9 %; Mean Corpuscular HGB Conc 32.3 g/dL (31.6-35.5); Mean Corpuscular Hemoglobin 33.2 pg (28.0-33.3); Mean Corpuscular Volume 102.7 fL (83.0-100.0); Mean Platelet Volume 8.9 fL (9.4-12.4); Monocytes # 0.8 K/mcL (0.0-1.3); Monocytes % 7.3 %; Neutrophils # 6.3 K/mcL (1.6-8.9); Platelet Count 447 K/mcL (140-400); Red Blood Count 3.77 M/mcL (3.82-4.97); Red Cell Distribution Width 13.6 % (11.5-14.5); Segmented Neutrophils % 61.2 %
[2016-09-11 20:53] LABS: BUN/Creatinine Ratio 12 (6-26); Blood Urea Nitrogen 12 mg/dL (7-20); Calcium 8.8 mg/dL (8.6-10.8); Carbon Dioxide 25 mEq/L (19-29); Chloride 102 mEq/L (98-109); Glucose 283 mg/dL (70-99); Osmolality,Calculated 294 (280-300); Potassium 4.5 mEq/L (3.5-4.5); Sodium 137 mEq/L (136-145); eGFR For African Americans > 60 (> 60); eGFR For Non-African Americans 52 (> 60)
[2016-09-11 20:59] LABS: ABG Base Excess -1.5 mEq/L (-2.0 to 3.0); ABG HCO3 23.7 mEQ/L (21-27); ABG Oxygen Saturation 97 % (95-98); ABG PCO2 41 mmHg (35-45); ABG PH 7.37 pH Units (7.32-7.45); ABG PO2 92 mmHg (85-104); Blood Gas Liter Flow 3 L/MIN
[2016-09-11] MEDS ORDERED: Furosemide 40 MG/4 ML VIAL IVP ONE (21:12)
[2016-09-11] MEDS ORDERED: Piperacillin/Tazobactam 3.375 GM in D5% in Water (Mini-Bag+) 100 ML IVPB ONE (21:25)
--- NOTE | 2016-09-11 22:34 | Internal Med History&Physical ---
Date of Encounter: 09/11/16 Time of Encounter: 22:30 Assessment and Plan (1) COPD exacerbation Current visit: Yes Status: Acute Given her symptoms of increased shortness of breath and sputum production without overt signs of fluid overload, COPD exacerbation is most likely cause of her dyspnea She was given 1 dose of Zosyn in the ED; we will start her on Levaquin 500 mg daily Continue supportive therapy with DuoNeb, Symbicort, supplemental oxygen Blood cultures have been obtained in the ED, await results Patient will likely need rehabilitation and home oxygen upon discharge, appreciate PT, OT, social service consult (2) Systolic CHF Current visit: Yes Status: Chronic Patient did receive 1 dose of 40 mg IV Lasix while in emergency department, will continue at 20 mg IV tomorrow Echo done in July of this year when she had her left heart catheterization showed EF of 35% Continue home dose of lisinopril, Toprol Measure I's and O's Qualifiers: Qualified Code(s): I50.20 - Unspecified systolic (congestive) heart failure (3) CAD (coronary artery disease) Current visit: Yes Status: Chronic She received a drug-eluting stent in July of this year and will require dual antiplatelet therapy for 1 year duration per cardiology Patient states she was recently switched from Brilinta to Plavix, and this was confirmed on eCW notes We will continue home aspirin, statin, Plavix Troponin was mildly elevated at 0.06, will trend 2 Qualifiers: Qualified Code(s): I25.10 - Atherosclerotic heart disease of [place] coronary artery without angina pectoris (4) Renal mass Current visit: Yes Status: Chronic Patient is aware of her left renal mass but still would not like any further diagnostic evaluation at this point (5) DVT prophylaxis Current visit: No Status: Acute Heparin 5000 units twice a day Internal Medicine - H&P: HPI Chief complaint: shortness of breath Admitted From: Home Plans for Post Hospital Care: Transfer Residential Facility History of present illness: Ms. Bernardo is a 81 year old female who presents to the emergency department with 2 days history of shortness of breath. She also endorses sputum production as green colored, but denies chest pain, fever, nausea, loss of consciousness. Patient lives at home alone and states that she gets severe shortness of breath with minimal ambulation. She does state that her sister lives next door and her cousin lives down the street and comes by and helps on a daily basis. Her medical history significant for recent left heart catheter in July resulting in a drug eluding stent to the LAD. She states that she has been on aspirin since then, and has switched from relented to Plavix just yesterday. Patient denies any problems with bleeding. She confirms that she is aware of the left renal mass and still wants no further diagnostic evaluation at this time. Past Med Surg Social Fam HX - Past Medical History Medical history: cancer (Left renal carcinoma diagnosed in 2012, does not wish to have further diagnostic testing or treatment), COPD (Not oxygen dependent), GERD, hypertension, other (Breast benign tumor status post left lumpectomy, liver cysts, tobacco use, diverticulosis, emphysema, vertigo, hypertension) Psychiatric history: no psych history - Past Surgical History Surgical History: other (Partial hysterectomy, left breast lumpectomy, right foot surgery and eye surgery) - Social History Smoking Status: Current every day smoker Smokeless Tobacco Status: No Alcohol use: none Drug use: none - Family History Mother Age at : 80 Hx Family Neurologic Disorders: Yes (stroke, alzheimer) Internal Medicine - H&P: Meds Atorvastatin [Lipitor] 80 mg PO HS tablet 08/11/16 [Rx] Furosemide [Lasix] 20 mg PO DAILY tablet 08/11/16 [Rx] Metoprolol XL (24 HR) Succ [Toprol Xl] 12.5 mg PO BID tab.er.24h 08/11/16 [Rx] Albuterol Sulfate [Proventil Hfa] 2 puff IH QID PRN 09/11/16 [History] Aspirin Enteric Coated [Aspirin EC] 81 mg PO DAILY 09/11/16 [History] Budesonide/Formoterol 160/4.5 [Symbicort 160/4.5] 1 puff IH BIDR 09/11/16 [ History] Cetirizine HCl [Zyrtec] 10 mg PO DAILY 09/11/16 [History] Clopidogrel [Plavix] 75 mg PO DAILY 09/11/16 [History] Clotrimazole [Mycelex Miguelina] 10 mg MM 5XD 09/11/16 [History] Fluconazole [Diflucan] 200 mg PO QWEEK 09/11/16 [History] Gentian Jeanie 1 appl TP DAILY PRN 09/11/16 [History] Lidocaine Patch [Lidoderm 5% patch] 1 each TP DAILY 09/11/16 [History] Lisinopril [Zestril] 5 mg PO DAILY 09/11/16 [History] Naproxen [Naprosyn] 500 mg PO BID 09/11/16 [History] Promethazine [Phenergan] 25 mg PO Q6HR PRN 09/11/16 [History] Allergies Influenza Virus Vaccines Allergy (Verified 08/06/16 18:28) Hives All Systems PM: A 10-system review of systems was performed and is negative for pertinent findings except as documented above in the HPI. - Constitutional Constitutional: lethargy, weakness, no chills, no fever(s), no night sweats - EENT Eyes: no change in vision, no discharge, no pain, no photophobia Ears: no ear discharge, no ear pain, no tinnitus Nose, mouth and throat: no dysphagia, no nasal discharge, no neck pain, no sore throat - Cardiovascular Cardiovascular ROS IM: dyspnea, dyspnea on exertion, no chest pain, no diaphoresis, no lightheadedness, no palpitations, no syncope - Respiratory Respiratory: cough, dyspnea, change in phlegm color, no hemoptysis, no wheezing , no pain with cough - Gastrointestinal Gastrointestinal: diarrhea, no abdominal pain, no hematemesis, no hematochezia, no melena, no nausea, no vomiting - Genitourinary Genitourinary: no change in urinary stream, no dysuria, no flank pain, no hematuria - Musculoskeletal Musculoskeletal ROS IM: no numbness, no tingling - Integumentary Integumentary IM: no rash, no unusual bruising - Neurological Neurological ROS: no confusion, no convulsions, no focal weakness, no numbness, no tingling, no tremor(s) - Constitutional Vitals: Temp Pulse Resp BP Pulse Ox 98.5 F 102 18 110/85 94 09/11/16 20:11 09/11/16 21:24 09/11/16 21:58 09/11/16 21:58 09/11/16 21:24 General appearance: Present: cooperative, A&O X 3, pleasant, no acute distress, answers questions appropriately - Head Head exam: Present: atraumatic, normocephalic - Eye Eye exam: Present: PERRL, conjuntiva pink, sclera anicteric - Neck Neck exam general surgery: Present: supple, trachea midline. Absent: lymphadenopathy - Respiratory Respiratory exam: Present: decreased breath sounds. Absent: accessory muscle use, rales, respiratory distress, rhonchi, wheezes - Cardiovascular Cardiovascular exam: Present: +S1, +S2, tachycardia (regular rhythm). Absent: diastolic murmur, gallop, rubs, systolic murmur - GI/Abdominal GI/Abdominal exam: Present: normal bowel sounds, soft, no peritoneal signs. Absent: distended, tenderness - Extremities Exam Extremities exam: Present: pedal edema (trace L > R), warm, radial pulses palpable and symetrical. Absent: calf tenderness, cyanotic - Neurological Exam Neurological exam: Present: alert, oriented X3, no focal deficits. Absent: facial droop, speech deficit - Skin Skin exam: Present: dry, intact Internal Med - H&P Results - Labs CBC & Chem 7: 09/11/16 20:30 09/11/16 20:30
[2016-09-11] MEDS ORDERED: Ondansetron ODT 4 MG TAB.RAPDIS SL PRN (23:03)
[2016-09-11] MEDS ORDERED: Naloxone 0.4 MG/ML INJ IVP PRN (23:03)
[2016-09-11] MEDS ORDERED: Acetaminophen 325 MG TABLET PO PRN (23:03)
[2016-09-12] MEDS: Levofloxacin 500 MG/100 ML 500 MG/100 ML BAG IVPB SCH ×2 (00:14→23:31)
[2016-09-12 03:09] LABS: Basophils % 0.1 %; Hematocrit 38.3 % (35.3-44.9); Hemoglobin 12.4 g/dL (11.5-15.4); Immature Granulocytes % 0.5 % (0-4); Lymphocytes # 0.7 K/mcL (0.6-4.6); Lymphocytes % 7.6 %; Mean Corpuscular HGB Conc 32.4 g/dL (31.6-35.5); Mean Corpuscular Hemoglobin 32.9 pg (28.0-33.3); Mean Corpuscular Volume 101.6 fL (83.0-100.0); Mean Platelet Volume 8.7 fL (9.4-12.4); Monocytes # 0.1 K/mcL (0.0-1.3); Monocytes % 0.9 %; Platelet Count 393 K/mcL (140-400); Red Blood Count 3.77 M/mcL (3.82-4.97); Red Cell Distribution Width 13.5 % (11.5-14.5); Segmented Neutrophils % 90.9 %
[2016-09-12 03:27] LABS: BUN/Creatinine Ratio 15 (6-26); Blood Urea Nitrogen 13 mg/dL (7-20); Calcium 8.6 mg/dL (8.6-10.8); Carbon Dioxide 27 mEq/L (19-29); Chloride 102 mEq/L (98-109); Glucose 146 mg/dL (70-99); Osmolality,Calculated 289 (280-300); Sodium 138 mEq/L (136-145); eGFR For African Americans > 60 (> 60); eGFR For Non-African Americans > 60 (> 60)
[2016-09-12 03:34] LABS: Potassium 4.1 mEq/L (3.5-4.5)
[2016-09-12] MEDS: Ipratropium/Albuterol Neb 3 ML IH SCH ×4 (03:50→22:23)
[2016-09-12] MEDS: *HR* Heparin 5,000 UNIT/ML VIAL SQ SCH ×2 (06:31→17:23)
[2016-09-12] MEDS ORDERED: Metoprolol XL (24 HR) Succ 25 MG TAB.ER.24H PO SCH (09:00)
[2016-09-12] MEDS: Aspirin Enteric Coated 81 MG Tablet PO SCH (10:30)
[2016-09-12] MEDS: Budesonide/Formoterol 160/4.5 MDI IH SCH ×2 (10:58→22:23)
--- NOTE | 2016-09-12 12:23 | Internal Med Progress Note ---
Date of Encounter: 09/12/16 Time of Encounter: 09:35 - Assessment and plan (1) COPD exacerbation Current Visit: Yes Status: Acute Assessment and plan: Continue current management with scheduled bronchodilators, steroids and levofloxacin. Continue O2 supplementation. Evaluate for home oxygen. Moderate risk for complications (2) CAD (coronary artery disease) Current Visit: Yes Status: Chronic Assessment and plan: Currently not having any chest pain. Continue aspirin, Plavix and statin beta marc and KIMMY inhibitor. Qualifiers: Coronary Disease-Associated Artery/Lesion type: [place] artery [place] vs. transplanted heart: [place] heart Associated angina: without angina Qualified Code(s): I25.10 - Atherosclerotic heart disease of [place] coronary artery without angina pectoris (3) DVT prophylaxis Current Visit: No Status: Acute (4) Renal mass Current Visit: Yes Status: Chronic Assessment and plan: Does not desire any further workup (5) Systolic CHF Current Visit: Yes Status: Chronic Assessment and plan: On IV Lasix. Having good urine output. However blood pressure is on the lower side. If persistently low, we will decrease Lasix dosage. Qualifiers: Congestive heart failure chronicity: acute on chronic Qualified Code(s): I50.23 - Acute on chronic systolic (congestive) heart failure - Subjective Interval history: Patient is feeling somewhat better today. Still having some shortness of breath. Still requiring O2 supplementation. No chest pain. Denies any nausea or vomiting. No palpitations. - Constitutional Vitals: Temp Pulse Resp BP Pulse Ox 97.7 F 101 16 96/54 93 09/12/16 06:36 09/12/16 11:39 09/12/16 11:39 09/12/16 11:39 09/12/16 11:39 General appearance: Present: cooperative, A&O X 3, pleasant, no acute distress, answers questions appropriately - Neck Neck exam general surgery: Present: supple, trachea midline. Absent: lymphadenopathy - Respiratory Respiratory exam: Present: prolonged expiratory phase, rhonchi, wheezes. Absent : accessory muscle use, rales - Cardiovascular Cardiovascular exam: Present: RRR, +S1, +S2. Absent: diastolic murmur, gallop, rubs, systolic murmur - GI/Abdominal GI/Abdominal exam: Present: normal bowel sounds, soft, no peritoneal signs. Absent: distended, tenderness - Extremities Exam Extremities exam: Present: pedal edema, warm, radial pulses palpable and symetrical. Absent: calf tenderness, cyanotic - Neurological Exam Neurological exam: Present: alert, CN II-XII intact, oriented X3, no focal deficits. Absent: facial droop, speech deficit - Skin Skin exam: Present: dry, intact Internal Medicine: Result - Labs CBC & Chem 7: 09/12/16 02:54 09/12/16 02:54 Labs: Short CBC 09/12/16 Range/Units 02:54 WBC 8.8 (4.3-11.1) K/mcL Hgb 12.4 (11.5-15.4) g/dL Hct 38.3 (35.3-44.9) % Plt Count 393 (140-400) K/mcL Neutrophils # 8.0 (1.6-8.9) K/mcL BMP 09/12/16 02:54 Sodium 138 Potassium 4.1 Chloride 102 Carbon Dioxide 27 BUN 13 Creatinine 0.89 Glucose 146 H Calcium 8.6 Cardiac Enzymes 09/12/16 09/12/16 Range/Units 02:54 08:12 Troponin I 0.05 H* 0.05 H* (0-0.03) ng/mL - ABG Interpretation ABG results: ABG ABG pH 7.37 pH Units (7.32-7.45) 09/11/16 20:45 ABG pCO2 41 mmHg (35-45) 09/11/16 20:45 ABG pO2 92 mmHg (85-104) 09/11/16 20:45 ABG O2 Saturation 97 % (95-98) 09/11/16 20:45 Consult Discharge Plan - Plan [facility]errals: [facility] [Primary Care Provider] -
[2016-09-12] MEDS: predniSONE 20 MG TABLET PO SCH (13:01)
[2016-09-12] MEDS: Furosemide 20 MG/2 ML VIAL IVP SCH (13:03)
[2016-09-13] MEDS: Ipratropium/Albuterol Neb 3 ML IH SCH ×4 (04:54→23:02)
[2016-09-13] MEDS: *HR* Heparin 5,000 UNIT/ML VIAL SQ SCH ×2 (06:16→17:13)
[2016-09-13 08:51] LABS: Basophils % 0.1 %; Eosinophils % 0.1 %; Hematocrit 35.9 % (35.3-44.9); Hemoglobin 11.6 g/dL (11.5-15.4); Immature Granulocytes % 0.5 % (0-4); Lymphocytes # 2.3 K/mcL (0.6-4.6); Lymphocytes % 21.2 %; Mean Corpuscular HGB Conc 32.3 g/dL (31.6-35.5); Mean Corpuscular Hemoglobin 33.8 pg (28.0-33.3); Mean Corpuscular Volume 104.7 fL (83.0-100.0); Mean Platelet Volume 8.8 fL (9.4-12.4); Monocytes # 0.7 K/mcL (0.0-1.3); Monocytes % 6.3 %; Neutrophils # 7.7 K/mcL (1.6-8.9); Platelet Count 350 K/mcL (140-400); Red Blood Count 3.43 M/mcL (3.82-4.97); Red Cell Distribution Width 13.8 % (11.5-14.5); Segmented Neutrophils % 71.8 %
[2016-09-13 09:03] LABS: BUN/Creatinine Ratio 16 (6-26); Blood Urea Nitrogen 14 mg/dL (7-20); Calcium 8.9 mg/dL (8.6-10.8); Carbon Dioxide 29 mEq/L (19-29); Chloride 98 mEq/L (98-109); Glucose 145 mg/dL (70-99); Osmolality,Calculated 287 (280-300); Potassium 3.9 mEq/L (3.5-4.5); Sodium 137 mEq/L (136-145); eGFR For African Americans > 60 (> 60); eGFR For Non-African Americans > 60 (> 60)
[2016-09-13] MEDS: Furosemide 20 MG/2 ML VIAL IVP SCH (09:25)
[2016-09-13] MEDS: predniSONE 20 MG TABLET PO SCH (09:27)
[2016-09-13] MEDS: Aspirin Enteric Coated 81 MG Tablet PO SCH (09:27)
[2016-09-13] MEDS: Metoprolol XL (24 HR) Succ 25 MG TAB.ER.24H PO SCH (09:28)
[2016-09-13] MEDS: Budesonide/Formoterol 160/4.5 MDI IH SCH ×2 (10:28→23:02)
[2016-09-13 12:25] LABS: Magnesium 1.4 mg/dL (1.6-2.6)
[2016-09-13] MEDS ORDERED: Magnesium Sulfate 2 GM in D5% in Water 100 ML IVPB ONE (12:31)
--- NOTE | 2016-09-13 13:11 | Electrocardiograph Report ---
[address] [place] [address] Test Date: 2016-09-11 Pat Name: Pushpa Bernardo Department: 105 Room: 2NE24 Gender: F Demo Specialist: GEORGES : [id number] Requested By: Rodney Johnson Order Number: [id number] Reading MD: Da Byers MD Measurements Intervals [place] Rate: 121 P: -53 CO: 222 QRS: 46 QRSD: 78 T: 52 QT: 340 QTc: 412 Interpretive Statements ECTOPIC ATRIAL TACHYCARDIA WITH FIRST DEGREE AV BLOCK WITH OCCASIONAL VENTRICULAR PREMATURE COMPLEXES LOW QRS VOLTAGE IN EXTREMITY LEADS ANTEROSEPTAL MYOCARDIAL INFARCTION, GE UNDETERMINED BASELINE ARTIFACT, REPEAT EKG Electronically Signed On 09-13-2016 13:10:22 EDT by Da Byers MD
--- NOTE | 2016-09-13 13:23 | Internal Med Progress Note ---
Date of Encounter: 09/13/16 Time of Encounter: 11:15 - Assessment and plan (1) COPD exacerbation Current Visit: Yes Status: Acute Assessment and plan: Continue treatment with scheduled nebs, prednisone and Levaquin. Patient may require home oxygen. We will evaluate for this. Also physical therapy recommends placement to skilled rehabilitation. kitchen and counter worker has been consulted to make arrangements for this. Moderate risk for complications. (2) Systolic CHF Current Visit: Yes Status: Chronic Assessment and plan: Improving. BNP significantly decreased today. We will change Lasix to oral. Continue fluid restriction. Qualifiers: Congestive heart failure chronicity: acute on chronic Qualified Code(s): I50.23 - Acute on chronic systolic (congestive) heart failure (3) CAD (coronary artery disease) Current Visit: Yes Status: Chronic Assessment and plan: No chest pain. Continue aspirin, Plavix, KIMMY inhibitor, beta marc and statin. Qualifiers: Coronary Disease-Associated Artery/Lesion type: [place] artery [place] vs. transplanted heart: [place] heart Associated angina: without angina Qualified Code(s): I25.10 - Atherosclerotic heart disease of [place] coronary artery without angina pectoris (4) DVT prophylaxis Current Visit: No Status: Acute Assessment and plan: On subcutaneous heparin (5) Renal mass Current Visit: Yes Status: Chronic Assessment and plan: Patient does not want any further workup for this. (6) Non-sustained ventricular tachycardia Current Visit: Yes Status: Acute Assessment and plan: Patient having a couple episodes of nonsustained ventricular tachycardia since yesterday. Did not receive a beta marc yesterday due to low blood pressure. We will resume it today as long as blood pressure remains greater than 90 systolic. Continue to monitor with telemetry. Magnesium levels are low. We will replete - Subjective Interval history: Patient continues to feel better. Denies any new complaints at this time. No nausea or vomiting. Breathing is improving. She did work with physical therapy today but did get short of breath with oxygen sats dropping with minimal exertion. Her blood pressure has also been on the lower side and her metoprolol dosage was held yesterday. - Constitutional Vitals: Temp Pulse Resp BP Pulse Ox 97.8 F 107 18 90/60 94 09/13/16 10:59 09/13/16 10:59 09/13/16 10:59 09/13/16 10:59 09/13/16 11:11 General appearance: Present: cooperative, mild distress, A&O X 3, pleasant, answers questions appropriately - Eye Eye exam: Present: EOMI, PERRL, conjuntiva pink, sclera anicteric - Respiratory Respiratory exam: Present: prolonged expiratory phase, wheezes. Absent: accessory muscle use, rales, rhonchi - Cardiovascular Cardiovascular exam: Present: RRR, +S1, +S2. Absent: diastolic murmur, gallop, rubs, systolic murmur - GI/Abdominal GI/Abdominal exam: Present: normal bowel sounds, soft, no peritoneal signs. Absent: distended, tenderness - Extremities Exam Extremities exam: Present: warm, radial pulses palpable and symetrical. Absent : calf tenderness, cyanotic, pedal edema - Neurological Exam Neurological exam: Present: oriented X3, no focal deficits. Absent: facial droop, speech deficit Internal Medicine: Result - Labs CBC & Chem 7: 09/13/16 08:42 09/13/16 08:42 Labs: Short CBC 09/13/16 Range/Units 08:42 WBC 10.8 (4.3-11.1) K/mcL Hgb 11.6 (11.5-15.4) g/dL Hct 35.9 (35.3-44.9) % Plt Count 350 (140-400) K/mcL Neutrophils # 7.7 (1.6-8.9) K/mcL BMP 09/13/16 08:42 Sodium 137 Potassium 3.9 Chloride 98 Carbon Dioxide 29 BUN 14 Creatinine 0.87 Glucose 145 H Calcium 8.9 - ABG Interpretation ABG results: ABG ABG pH 7.37 pH Units (7.32-7.45) 09/11/16 20:45 ABG pCO2 41 mmHg (35-45) 09/11/16 20:45 ABG pO2 92 mmHg (85-104) 09/11/16 20:45 ABG O2 Saturation 97 % (95-98) 09/11/16 20:45 Consult Discharge Plan - Plan [facility]errals: [facility] [Primary Care Provider[facility] -
[2016-09-13] MEDS: Furosemide 20 MG TABLET PO SCH (13:39)
[2016-09-13] MEDS ORDERED: Levofloxacin 250 MG/50 ML 250 MG/50 ML BAG IVPB SCH (23:00)
[2016-09-14] MEDS: Ipratropium/Albuterol Neb 3 ML IH SCH ×2 (03:45→11:08)
[2016-09-14] MEDS: *HR* Heparin 5,000 UNIT/ML VIAL SQ SCH (05:49)
[2016-09-14 08:52] VITALS: BP 87/53
[2016-09-14] MEDS: Metoprolol XL (24 HR) Succ 25 MG TAB.ER.24H PO SCH ×2 (08:52→09:27)
[2016-09-14] MEDS: predniSONE 20 MG TABLET PO SCH (08:53)
[2016-09-14] MEDS: Aspirin Enteric Coated 81 MG Tablet PO SCH (08:53)
[2016-09-14] MEDS: Furosemide 20 MG TABLET PO SCH (08:53)
[2016-09-14] MEDS: Budesonide/Formoterol 160/4.5 MDI IH SCH (11:08)
--- NOTE | 2016-09-14 14:03 | Discharge Summary ---
Date of Encounter: 09/14/16 Time of Encounter: 10:00 - Discharge Diagnosis (1) COPD exacerbation Priority: Primary Status: Acute (2) Systolic CHF Priority: Secondary Status: Chronic Qualifiers: Congestive heart failure chronicity: acute on chronic Qualified Code(s): I50.23 - Acute on chronic systolic (congestive) heart failure (3) CAD (coronary artery disease) Priority: Secondary Status: Chronic Qualifiers: Coronary Disease-Associated Artery/Lesion type: [place] artery [place] vs. transplanted heart: [place] heart Associated angina: without angina Qualified Code(s): I25.10 - Atherosclerotic heart disease of [place] coronary artery without angina pectoris (4) DVT prophylaxis Priority: Secondary Status: Acute (5) Renal mass Priority: Secondary Status: Chronic (6) Non-sustained ventricular tachycardia Priority: Secondary Status: Acute - Discharge Medications Prescriptions: Albuterol Neb [Proventil Neb] 2.5 mg IH Q4HR PRN #30 vial.neb PRN Reason: Wheezing levoFLOXacin [Levaquin] 500 mg PO DAILY #7 tablet predniSONE [PredniSONE] 10 mg PO DAILY 8 Days Home Medications: Atorvastatin [Lipitor] 80 mg PO HS tablet 08/11/16 [Rx] Furosemide [Lasix] 20 mg PO DAILY tablet 08/11/16 [Rx] Albuterol Sulfate [Proventil Hfa] 2 puff IH QID PRN 09/11/16 [History] Aspirin Enteric Coated [Aspirin EC] 81 mg PO DAILY 09/11/16 [History] Budesonide/Formoterol 160/4.5 [Symbicort 160/4.5] 1 puff IH BIDR 09/11/16 [ History] Cetirizine HCl [Zyrtec] 10 mg PO DAILY 09/11/16 [History] Clopidogrel [Plavix] 75 mg PO DAILY 09/11/16 [History] Clotrimazole [Mycelex Mgiuelina] 10 mg MM 5XD 09/11/16 [History] Fluconazole [Diflucan] 200 mg PO QWEEK 09/11/16 [History] Gentian Jeanie 1 appl TP DAILY PRN 09/11/16 [History] Lidocaine Patch [Lidoderm 5% patch] 1 each TP DAILY 09/11/16 [History] Promethazine [Phenergan] 25 mg PO Q6HR PRN 09/11/16 [History] Albuterol Neb [Proventil Neb] 2.5 mg IH Q4HR PRN #30 vial.neb 09/14/16 [Rx] Metoprolol XL (24 HR) Succ [Toprol Xl] 12.5 mg PO DAILY #30 tab.er.24h 09/14/16 [Rx] levoFLOXacin [Levaquin] 500 mg PO DAILY #7 tablet 09/14/16 [Rx] predniSONE [PredniSONE] 10 mg PO DAILY 8 Days 09/14/16 [Rx] Allergies/Adverse Reactions: Allergies Influenza Virus Vaccines Allergy (Verified 08/06/16 18:28) Hives Date of admission: 09/11/16 23:02 [facility] care physician: [facility] Consults: 09/11/16 23:09 Consult to Occupational Therapy [CONS] Routine Comment: Evaluate, develop and implement POC Reason for Consult: generalized weakness from increased SOB, may need rehab upon d/c Consult to Physical Therapy [CONS] Routine Comment: Evaluate, develop and implement POC Reason for Consult: generalized weakness from increased SOB, may need rehab upon d/c Consult to Location Director [CONS] Routine Reason for SW Consult: generalized weakness from increased SOB, may need rehab upon d/c Discharging clinician: Gisel Whitfield Anticipated date of discharge: 09/14/16 - Patient Status Disposition: Home Health Service Condition: Good Functional capacity at discharge: uses cane/walker Overall status at discharge: patient is back to baseline - Discharge Instructions Instructions: Albuterol (By breathing), Prednisone (By mouth), Levofloxacin ( By mouth), Heart Failure (DC), Chronic Obstructive Pulmonary Disease (DC), Heart Failure, Theatre Arts Professor (GEN) Follow Up With: [facility] [Primary Care Provider[facility] - (in 1-2 weeks) Additional Instructions: Follow up with cardiology in 1-2 weeks october 17 at 8:00 - Diet and Activity Activity: as per physical therapy, increase activity as tolerated Diet: low fat, low cholesterol, low salt diet, other (fluid restriction to 1.5 L /24 hrs) Hospital course: Ms. Bernardo is a 81 year old female patient with a history of COPD, cardiomyopathy, gastroesophageal reflux disease, hypertension who was admitted here with acute COPD exacerbation and acute systolic congestive heart failure. She was treated for these conditions with bronchodilators and intravenous Lasix along with O2 supplementation. She has slowly recovered with the help of these medications and is feeling much better currently. She was evaluated for home oxygen but is saturating greater than 90% on room air with minimal ambulation that she is able to perform. She was evaluated by physical therapy and recommended placement to skilled rehabilitation. However patient wishes to go home with home health and started which will be arranged for the patient. Patient does have a history of coronary artery disease and is on aspirin and Plavix along with beta marc. She will be discharged today on tapering course of steroids along with Lasix and levofloxacin. Patient has had low blood pressure during her stay here. As such I am stopping her lisinopril and her metoprolol dosage has also been decreased. Patient did develop a couple of episodes of nonsustained ventricular tachycardia when her metoprolol was held due to low blood pressure. She has not had further episodes since yesterday. She will follow-up with cardiology after discharge for further management of her heart disease. - Time Spent with Patient Total time spent providing and/or coordinating discharge services: Greater than 30 minutes (45 min) - Constitutional Vitals: Temp Pulse Resp BP Pulse Ox 98.6 F 98 16 87/53 100 09/14/16 05:26 09/14/16 08:48 09/14/16 11:10 09/14/16 08:48 09/14/16 11:10 General appearance: Present: cooperative, mild distress, A&O X 3, pleasant, answers questions appropriately - Neck Neck exam general surgery: Present: supple, trachea midline. Absent: lymphadenopathy - Respiratory Respiratory exam: Present: prolonged expiratory phase, wheezes. Absent: accessory muscle use, rales, rhonchi - Cardiovascular Cardiovascular exam: Present: RRR, +S1, +S2. Absent: diastolic murmur, gallop, rubs, systolic murmur - GI/Abdominal GI/Abdominal exam: Present: normal bowel sounds, soft, no peritoneal signs. Absent: distended, tenderness - Extremities Exam Extremities exam: Present: warm, radial pulses palpable and symetrical. Absent : calf tenderness, cyanotic, pedal edema - Neurological Exam Neurological exam: Present: alert, oriented X3, no focal deficits. Absent: facial droop, speech deficit - Skin Skin exam: Present: dry, intact
--- NOTE | 2016-09-14 14:08 | Physician Discharge Referral ---
Home Health/Hosp Referral Info Transfer to: Home Health Provider in Charge Post Discharge: PCP - Diagnosis (1) COPD exacerbation Priority: Primary Status: Acute (2) Systolic CHF Priority: Secondary Status: Chronic (3) CAD (coronary artery disease) Priority: Secondary Status: Chronic (4) DVT prophylaxis Priority: Secondary Status: Acute (5) Renal mass Priority: Secondary Status: Chronic (6) Non-sustained ventricular tachycardia Priority: Secondary Status: Acute - Respiratory Orders Smoking Cessation: Smoking cessation has been advised. For more information, call the [employer] Quit Line at 5-733-TPHO-NOW. - Diet/Nutrition Diet/Nutrition Orders: Cardiac Diet/Nutrition: List: Fluid restriction to 1.5 L per 24 hours - Activity Activity Orders: Walker - Services Needed Following services are medically necessary services: Nursing, Home Health Aide, Physical Therapy, Occupational Therapy - Transfer Medications Prescriptions: levoFLOXacin [Levaquin] 500 mg PO DAILY #7 tablet predniSONE [PredniSONE] 10 mg PO DAILY 8 Days Home Medications: Atorvastatin [Lipitor] 80 mg PO HS tablet 08/11/16 [Rx] Furosemide [Lasix] 20 mg PO DAILY tablet 08/11/16 [Rx] Albuterol Sulfate [Proventil Hfa] 2 puff IH QID PRN 09/11/16 [History] Aspirin Enteric Coated [Aspirin EC] 81 mg PO DAILY 09/11/16 [History] Budesonide/Formoterol 160/4.5 [Symbicort 160/4.5] 1 puff IH BIDR 09/11/16 [ History] Cetirizine HCl [Zyrtec] 10 mg PO DAILY 09/11/16 [History] Clopidogrel [Plavix] 75 mg PO DAILY 09/11/16 [History] Clotrimazole [Mycelex Miguelina] 10 mg MM 5XD 09/11/16 [History] Fluconazole [Diflucan] 200 mg PO QWEEK 09/11/16 [History] Gentian Jeanie 1 appl TP DAILY PRN 09/11/16 [History] Lidocaine Patch [Lidoderm 5% patch] 1 each TP DAILY 09/11/16 [History] Promethazine [Phenergan] 25 mg PO Q6HR PRN 09/11/16 [History] Metoprolol XL (24 HR) Succ [Toprol Xl] 12.5 mg PO DAILY #30 tab.er.24h 09/14/16 [Rx] levoFLOXacin [Levaquin] 500 mg PO DAILY #7 tablet 09/14/16 [Rx] predniSONE [PredniSONE] 10 mg PO DAILY 8 Days 09/14/16 [Rx] Allergies/Adverse Reactions: Allergies Influenza Virus Vaccines Allergy (Verified 08/06/16 18:28) Hives Certification: Further, I certify that my clinical findings support that this patient is homebound (i.e. absences from home require considerable and taxing effort and are for medical reasons or [employer] services or infrequently or short duration when for other reasons) because: Homebound Reason: Patient requires assistance of a person or device to safely leave home, Severity of cardiac or pulmonary status limits activity tolerance Attestation: My signature below is to certify that this patient is under my care and that I, or nurse practitioner, or a physician's pet care assistant working with me, has a face-to -face encounter with this patient.
== END 2016-09-14 14:44 | disposition home health service (06) | DRG 190 ==
LOC: EMEROO 20:09 → 2NENU 20:09 → SUATTDRO 23:02
PROVIDERS: ADMIT Internal Medicine; ATTEND Internal Medicine

== ENCOUNTER 2017-03-09 13:38 | Inpatient (IN) ==
[2017-03-09] MEDS ORDERED: Ipratropium/Albuterol Neb 3 ML IH ONE (13:42)
[2017-03-09] MEDS ORDERED: methylPREDNISolone 125 MG/2 ML VIAL IVP ONE (13:42)
--- NOTE | 2017-03-09 13:49 | Emergency Department Note ---
Disposition Clinical Impression: Acute exacerbation of chronic obstructive airways disease Congestive heart failure Qualifiers: Congestive heart failure type: unspecified congestive heart failure type Congestive heart failure chronicity: acute Qualified Code(s): I50.9 - Heart failure, unspecified Disposition: Admitted As Inpatient Condition: Fair Time of Disposition: 15:35 Pediatric SOB HPI - General Chief Complaint: ED Shortness of Breath/Dyspnea Stated Complaint: Shortness of Breath Time Seen by Provider: 03/09/17 13:41 Source: patient, EMS Mode of arrival: EMS Limitations: physical limitation (Of years shortness of breath) Nursing Notes Reviewed: Yes Vital Signs Reviewed: Yes - History of Present Illness HPI Narrative: 81-year-old female with history COPD comes in with significant shortness of breath. She refused BiPAP by the squad on arrival she does answer questions and is obviously in severe distress. I discussed with the patient intubation and she is amenable to that of the comes to it she is going to try the BiPAP. Pt Subjective Complaint: cough, wheezes, difficulty breathing Onset (ago): Just [employer] Consistency: constant Severity: severe Context: recent illness Associated symptoms: Reports: cough Improves with: nothing Worsens with: exertion - Related Data Home Medications Medication Instructions Recorded Confirmed Albuterol Sulfate [Proventil Hfa] 2 puff IH QID PRN 09/11/16 09/11/16 Aspirin Enteric Coated [Aspirin EC] 81 mg PO DAILY 09/11/16 09/11/16 Budesonide/Formoterol 160/4.5 1 puff IH BIDR 09/11/16 09/11/16 [Symbicort 160/4.5] Cetirizine HCl [Zyrtec] 10 mg PO DAILY 09/11/16 09/11/16 Clopidogrel [Plavix] 75 mg PO DAILY 09/11/16 09/11/16 Clotrimazole [Mycelex Miguelina] 10 mg MM 5XD 09/11/16 09/11/16 Fluconazole [Diflucan] 200 mg PO QWEEK 09/11/16 09/11/16 Gentian Jeanie 1 appl TP DAILY PRN 09/11/16 09/11/16 Lidocaine Patch [Lidoderm 5% patch] 1 each TP DAILY 09/11/16 09/11/16 Promethazine [Phenergan] 25 mg PO Q6HR PRN 09/11/16 09/11/16 Previous Rx's Medication Instructions Recorded Atorvastatin [Lipitor] 80 mg PO HS tablet 08/11/16 Furosemide [Lasix] 20 mg PO DAILY tablet 08/11/16 Albuterol Neb [Proventil Neb] 2.5 mg IH Q4HR PRN #30 vial.neb 09/14/16 Metoprolol XL (24 HR) Succ [Toprol 12.5 mg PO DAILY #30 tab.er.24h 09/14/16 Xl] levoFLOXacin [Levaquin] 500 mg PO DAILY #7 tablet 09/14/16 predniSONE [PredniSONE] 10 mg PO DAILY 8 Days tablet 09/14/16 Allergies Allergy/AdvReac Type Severity Reaction Status Date / Time Influenza Virus Vaccines Allergy Hives Verified 08/06/16 18:28 Pediatric Review of Systems All systems ED: reviewed and negative except as stated. Constitutional: Denies: fever, chills, change in activity level Eyes: Denies: eye pain, eye discharge ENT: Denies: ear pain, sore throat Cardiovascular: Denies: chest pain Respiratory: Reports: cough, dyspnea, wheezing Gastrointestinal: Denies: abdominal pain Genitourinary: Denies: dysuria, polyuria Musculoskeletal: Denies: back pain Integumentary: Denies: rash Neurological: Denies: headache, weakness, numbness Psychiatric: Denies: change in energy level Endocrine: Denies: fatigue Hematological/Lymphatic: Denies: easy bruising Allergic/Immunologic: Denies: facial swelling, urticaria Pediatric Exam - General Limitations: no limitations General appearance: ill-appearing, other (Severe respiratory distress) - Head Head exam: normocephalic, atruamatic, normal inspection - Eye Eye exam: Present: normal appearance, PERRL, EOMI - ENT ENT exam: normal exam, normal oropharynx, mucous membranes moist - Expanded ENT Exam Mouth exam pediatric: Present: normal external inspection - Neck Neck exam: Present: normal inspection, full ROM - Expanded Neck Exam Neck exam: Present: midline tenderness. Absent: tenderness (other) - Chest Chest inspection: Present: other (Barrel chested) - Respiratory Respiratory exam: Present: respiratory distress, wheezes - Cardiovascular Cardiovascular exam: Present: regular rate, normal rhythm - Abdominal Exam Abdominal exam: Present: soft, Non-Tender, normal bowel sounds - Extremities Exam Extremities exam: Present: normal inspection, full ROM - Expanded Lower Extremity Exam Neurovascular/Tendon exam: Present: normal capillary refill. Absent: pulse deficit Gait: not tested/not observed - Back Exam Back exam: Present: normal inspection, full ROM - Neurological Exam Neurological exam: Present: alert, oriented X3 - Skin Skin exam: Present: warm, dry, intact, normal color Course - Reevaluation(s) Reevaluation #1: 81-year-old who comes in with increasing shortness of breath. She states she does have a history COPD. Workup included a negative chest x-ray however BNP is elevated above of her thousand. Troponin is elevated at 0.05. EKG without acute ST segment change. Patient will be admitted for further evaluation and treatment. Time: 15:33 - Consultations Consultation #1: Discussed with Dr. Charles, admit. Time: 15:34 Vital Signs Temperature 98.2 F 03/09/17 13:39 Pulse Rate 111 03/09/17 13:39 Respiratory Rate 28 03/09/17 13:39 Blood Pressure 107/90 03/09/17 13:39 O2 Sat by Pulse Oximetry 90 03/09/17 13:39 Temperature 98.2 F 03/09/17 13:39 Pulse Rate 104 03/09/17 15:46 Respiratory Rate 18 03/09/17 16:53 Blood Pressure 95/61 03/09/17 16:53 O2 Sat by Pulse Oximetry 97 03/09/17 15:46 Oxygen Delivery Oxygen Delivery Bipap Medical Decision Making - Lab Data Lab results reviewed: Yes I reviewed the patient's lab results. Result diagrams: 03/09/17 14:35 03/09/17 14:35 Lab Results 03/09/17 03/09/17 03/09/17 Range/Units 14:03 14:35 14:35 WBC 8.6 (4.3-11.1) K/mcL RBC 5.08 H (3.82-4.97) M/mcL Hgb 15.0 (11.5-15.4) g/dL Hct 46.4 H (35.3-44.9) % MCV 91.3 (83.0-100.0) fL MCH 29.5 (28.0-33.3) pg MCHC 32.3 (31.6-35.5) g/dL RDW 21.0 H (11.5-14.5) % Plt Count 272 (140-400) K/mcL MPV 10.0 (9.4-12.4) fL Immature Gran % 0.4 (0-4) % Seg Neutrophils % 81.1 % Lymphocytes % 10.9 % Monocytes % 6.5 % Eosinophils % 0.5 % Basophils % 0.6 % Neutrophils # 6.9 (1.6-8.9) K/mcL Lymphocytes # 0.9 (0.6-4.6) K/mcL Monocytes # 0.6 (0.0-1.3) K/mcL Eosinophils # 0.0 (0.0-0.6) K/mcL Basophils # 0.1 (0.0-0.2) K/mcL PT (9.4-12.1) Seconds INR APTT (26.0-36.0) Seconds D-Dimer 1521 H (0-500) ng/mLFEU ABG pH 7.36 (7.32-7.45) pH Units ABG pCO2 51 H (35-45) mmHg ABG pO2 80 L (85-104) mmHg ABG HCO3 29 H (21-27) mEq/L ABG Total CO2 30 H (20-26) mEq/L ABG O2 Saturation 95 (95-98) % ABG Base Excess 2 (-2 to 3) mEq/L O2 Delivery Device BiPAP Sodium (136-145) mEq/L Potassium (3.5-5.1) mEq/L Chloride (98-107) mEq/L Carbon Dioxide (23-29) mEq/L BUN (8-23) mg/dL Creatinine (0.60-1.20) mg/dL Est GFR ( Amer) (> 60) Est GFR (Non-Af Amer) (> 60) BUN/Creatinine Ratio (6-26) Glucose (70-105) mg/dL Calculated Osmolality (280-300) Lactic Acid (0.5-2.2) mmol/L Calcium (8.6-10.3) mg/dL Phosphorus (2.7-4.5) mg/dL Troponin I (< 0.04) ng/mL B-Natriuretic Peptide (Less than 100) pg/mL 03/09/17 03/09/17 03/09/17 Range/Units 14:35 14:35 14:35 WBC (4.3-11.1) K/mcL RBC (3.82-4.97) M/mcL Hgb (11.5-15.4) g/dL Hct (35.3-44.9) % MCV (83.0-100.0) fL MCH (28.0-33.3) pg MCHC (31.6-35.5) g/dL RDW (11.5-14.5) % Plt Count (140-400) K/mcL MPV (9.4-12.4) fL Immature Gran % (0-4) % Seg Neutrophils % % Lymphocytes % % Monocytes % % Eosinophils % % Basophils % % Neutrophils # (1.6-8.9) K/mcL Lymphocytes # (0.6-4.6) K/mcL Monocytes # (0.0-1.3) K/mcL Eosinophils # (0.0-0.6) K/mcL Basophils # (0.0-0.2) K/mcL PT (9.4-12.1) Seconds INR APTT (26.0-36.0) Seconds D-Dimer (0-500) ng/mLFEU ABG pH (7.32-7.45) pH Units ABG pCO2 (35-45) mmHg ABG pO2 (85-104) mmHg ABG HCO3 (21-27) mEq/L ABG Total CO2 (20-26) mEq/L ABG O2 Saturation (95-98) % ABG Base Excess (-2 to 3) mEq/L O2 Delivery Device Sodium 135 L (136-145) mEq/L Potassium 4.3 (3.5-5.1) mEq/L Chloride 98 (98-107) mEq/L Carbon Dioxide 29 (23-29) mEq/L BUN 18 (8-23) mg/dL Creatinine 0.81 (0.60-1.20) mg/dL Est GFR ( Amer) > 60 (> 60) Est GFR (Non-Af Amer) > 60 (> 60) BUN/Creatinine Ratio 22 (6-26) Glucose 139 H (70-105) mg/dL Calculated Osmolality 284 (280-300) Lactic Acid 2.2 (0.5-2.2) mmol/L Calcium 9.2 (8.6-10.3) mg/dL Phosphorus (2.7-4.5) mg/dL Troponin I 0.05 H* (< 0.04) ng/mL B-Natriuretic Peptide (Less than 100) pg/mL 03/09/17 03/09/17 03/09/17 Range/Units 14:35 14:35 16:42 WBC (4.3-11.1) K/mcL RBC (3.82-4.97) M/mcL Hgb (11.5-15.4) g/dL Hct (35.3-44.9) % MCV (83.0-100.0) fL MCH (28.0-33.3) pg MCHC (31.6-35.5) g/dL RDW (11.5-14.5) % Plt Count (140-400) K/mcL MPV (9.4-12.4) fL Immature Gran % (0-4) % Seg Neutrophils % % Lymphocytes % % Monocytes % % Eosinophils % % Basophils % % Neutrophils # (1.6-8.9) K/mcL Lymphocytes # (0.6-4.6) K/mcL Monocytes # (0.0-1.3) K/mcL Eosinophils # (0.0-0.6) K/mcL Basophils # (0.0-0.2) K/mcL PT 13.2 H (9.4-12.1) Seconds INR 1.2 APTT 25.4 L (26.0-36.0) Seconds D-Dimer (0-500) ng/mLFEU ABG pH (7.32-7.45) pH Units ABG pCO2 (35-45) mmHg ABG pO2 (85-104) mmHg ABG HCO3 (21-27) mEq/L ABG Total CO2 (20-26) mEq/L ABG O2 Saturation (95-98) % ABG Base Excess (-2 to 3) mEq/L O2 Delivery Device Sodium (136-145) mEq/L Potassium (3.5-5.1) mEq/L Chloride (98-107) mEq/L Carbon Dioxide (23-29) mEq/L BUN (8-23) mg/dL Creatinine (0.60-1.20) mg/dL Est GFR ( Amer) (> 60) Est GFR (Non-Af Amer) (> 60) BUN/Creatinine Ratio (6-26) Glucose (70-105) mg/dL Calculated Osmolality (280-300) Lactic Acid 1.6 (0.5-2.2) mmol/L Calcium (8.6-10.3) mg/dL Phosphorus (2.7-4.5) mg/dL Troponin I (< 0.04) ng/mL B-Natriuretic Peptide 4550 H (Less than 100) pg/mL 03/09/17 Range/Units 16:42 WBC (4.3-11.1) K/mcL RBC (3.82-4.97) M/mcL Hgb (11.5-15.4) g/dL Hct (35.3-44.9) % MCV (83.0-100.0) fL MCH (28.0-33.3) pg MCHC (31.6-35.5) g/dL RDW (11.5-14.5) % Plt Count (140-400) K/mcL MPV (9.4-12.4) fL Immature Gran % (0-4) % Seg Neutrophils % % Lymphocytes % % Monocytes % % Eosinophils % % Basophils % % Neutrophils # (1.6-8.9) K/mcL Lymphocytes # (0.6-4.6) K/mcL Monocytes # (0.0-1.3) K/mcL Eosinophils # (0.0-0.6) K/mcL Basophils # (0.0-0.2) K/mcL PT (9.4-12.1) Seconds INR APTT (26.0-36.0) Seconds D-Dimer (0-500) ng/mLFEU ABG pH (7.32-7.45) pH Units ABG pCO2 (35-45) mmHg ABG pO2 (85-104) mmHg ABG HCO3 (21-27) mEq/L ABG Total CO2 (20-26) mEq/L ABG O2 Saturation (95-98) % ABG Base Excess (-2 to 3) mEq/L O2 Delivery Device Sodium (136-145) mEq/L Potassium (3.5-5.1) mEq/L Chloride (98-107) mEq/L Carbon Dioxide (23-29) mEq/L BUN (8-23) mg/dL Creatinine (0.60-1.20) mg/dL Est GFR ( Amer) (> 60) Est GFR (Non-Af Amer) (> 60) BUN/Creatinine Ratio (6-26) Glucose (70-105) mg/dL Calculated Osmolality (280-300) Lactic Acid (0.5-2.2) mmol/L Calcium (8.6-10.3) mg/dL Phosphorus 4.1 (2.7-4.5) mg/dL Troponin I (< 0.04) ng/mL B-Natriuretic Peptide (Less than 100) pg/mL - Radiology Data Radiology results reviewed: Yes I reviewed the patient's radiology results. Chest X-Ray 03/09/17 13:42 IMPRESSION: 1. Small left pleural effusion. 2. Emphysema. D/ / Taco Fisher MD / Taco Fisher MD Interpreting Provider: Taco Fisher MD Venous Doppler is negative for DVT left leg. - EKG Data EKG #1 EKG attestation: Yes I reviewed and interpreted this EKG. EKG shows normal: sinus rhythm Rate: normal Rhythm: NSR Interpretation: no acute changes
[2017-03-09 14:07] LABS: ABG Base Excess 2 mEq/L (-2 to 3); ABG HCO3 29 mEq/L (21-27); ABG Oxygen Saturation 95 % (95-98); ABG PCO2 51 mmHg (35-45); ABG PH 7.36 pH Units (7.32-7.45); ABG PO2 80 mmHg (85-104); ABG TCO2 30 mEq/L (20-26)
[2017-03-09 14:42] LABS: Basophils # 0.1 K/mcL (0.0-0.2); Basophils % 0.6 %; Eosinophils % 0.5 %; Hematocrit 46.4 % (35.3-44.9); Immature Granulocytes % 0.4 % (0-4); Lymphocytes # 0.9 K/mcL (0.6-4.6); Lymphocytes % 10.9 %; Mean Corpuscular HGB Conc 32.3 g/dL (31.6-35.5); Mean Corpuscular Hemoglobin 29.5 pg (28.0-33.3); Mean Corpuscular Volume 91.3 fL (83.0-100.0); Monocytes # 0.6 K/mcL (0.0-1.3); Monocytes % 6.5 %; Neutrophils # 6.9 K/mcL (1.6-8.9); Platelet Count 272 K/mcL (140-400); Red Blood Count 5.08 M/mcL (3.82-4.97); Segmented Neutrophils % 81.1 %
[2017-03-09 14:48] LABS: INR 1.2; Prothrombin Time 13.2 Seconds (9.4-12.1)
[2017-03-09 14:50] LABS: Activated Partial Thrombo Time 25.4 Seconds (26.0-36.0)
[2017-03-09 14:58] LABS: BUN/Creatinine Ratio 22 (6-26); Blood Urea Nitrogen 18 mg/dL (8-23); Calcium 9.2 mg/dL (8.6-10.3); Carbon Dioxide 29 mEq/L (23-29); Chloride 98 mEq/L (98-107); Glucose 139 mg/dL (70-105); Osmolality,Calculated 284 (280-300); Potassium 4.3 mEq/L (3.5-5.1); Sodium 135 mEq/L (136-145); eGFR For African Americans > 60 (> 60); eGFR For Non-African Americans > 60 (> 60)
[2017-03-09] MEDS ORDERED: Furosemide 20 MG/2 ML VIAL IVP ONE (15:28)
--- NOTE | 2017-03-09 15:59 | Internal Med History&Physical ---
Date of Encounter: 03/09/17 Time of Encounter: 15:53 Assessment and Plan (1) Shortness of breath Current visit: Yes Status: Acute Multifactorial COPD exacerbation with acutely decompensated HFrEF. Will rule out PE as possible other etiology. She is getting venous duplex of left lower extremity and will follow-up with results. Does not seem like there is a bacterial cause of COPD exacerbation. Continue patient on bipap. Will start Solumedrol, Duo Nebs scheduled, Lasix IV. She denies cough/sputum production, she has no leukocytosis or fever, chest x-ray showed small left pleural effusion , no pneumonia. Will get respiratory culture and flu level, though seems less likely bacterial infection as of right now will hold from giving antibiotics. (2) COPD exacerbation Current visit: No Status: Acute (3) Systolic CHF Current visit: No Status: Chronic Review of past admission; No BB or ACEi on patient because of persistent hypotension. Qualifiers: Congestive heart failure chronicity: acute on chronic Qualified Code(s): I50.23 - Acute on chronic systolic (congestive) heart failure (4) CAD (coronary artery disease) Current visit: No Status: Chronic Aspirin/Plavix, lipitor Qualifiers: Coronary Disease-Associated Artery/Lesion type: [place] artery [place] vs. transplanted heart: [place] heart Associated angina: without angina Qualified Code(s): I25.10 - Atherosclerotic heart disease of [place] coronary artery without angina pectoris (5) Hypotension Current visit: No Status: Resolved For this reason BB and ACEi are not given to patient. Qualifiers: Hypotension type: unspecified hypotension type Qualified Code(s): I95.9 - Hypotension, unspecified (6) DVT prophylaxis Current visit: No Status: Acute lovenox 40 mg sq daily. Internal Medicine - H&P: HPI Admitted From: Home History of present illness: Ms. Bernardo is a 81 year old female with history of COPD, systolic heart failure (EF 35% 07/2016), ischemic cardiomyopathy, presents for acute onset shortness of breath. She also complains of left shoulder pain without a history of trauma and diaphoresis. She denies chest pain, cough, n/v, fevers/ chills, palpitations, syncope. No recent sick contacts, no new exposures. She admits to some lower extremity edema. She refused bipap on arrival but patient is on bipap on my assessment. A chest x-ray in ED shows small left pleural effusion, BNP elevated at 4550 which is above her normal levels. Troponin is 0.05 which is her baseline. Review of past hospital visit shows patient is not on beta marc or sudhakar inhibitor because of persistent hypotension. Past Med Surg Social Fam HX - Past Medical History Medical history: cancer, COPD, GERD, hypertension, other Psychiatric history: no psych history - Past Surgical History Surgical History: other (Partial hysterectomy, left breast lumpectomy, right foot surgery and eye surgery) - Social History Smoking Status: Current every day smoker Smokeless Tobacco Status: No Alcohol use: none Drug use: none - Family History Mother Hx Family Neurologic Disorders: Yes (stroke, alzheimer) Internal Medicine - H&P: Meds Atorvastatin [Lipitor] 80 mg PO HS tablet 08/11/16 [Rx] Furosemide [Lasix] 20 mg PO DAILY tablet 08/11/16 [Rx] Albuterol Sulfate [Proventil Hfa] 2 puff IH QID PRN 09/11/16 [History] Aspirin Enteric Coated [Aspirin EC] 81 mg PO DAILY 09/11/16 [History] Budesonide/Formoterol 160/4.5 [Symbicort 160/4.5] 1 puff IH BIDR 09/11/16 [ History] Cetirizine HCl [Zyrtec] 10 mg PO DAILY 09/11/16 [History] Clopidogrel [Plavix] 75 mg PO DAILY 09/11/16 [History] Clotrimazole [Mycelex Miguelina] 10 mg MM 5XD 09/11/16 [History] Fluconazole [Diflucan] 200 mg PO QWEEK 09/11/16 [History] Gentian Jeanie 1 appl TP DAILY PRN 09/11/16 [History] Lidocaine Patch [Lidoderm 5% patch] 1 each TP DAILY 09/11/16 [History] Promethazine [Phenergan] 25 mg PO Q6HR PRN 09/11/16 [History] Albuterol Neb [Proventil Neb] 2.5 mg IH Q4HR PRN #30 vial.neb 09/14/16 [Rx] Metoprolol XL (24 HR) Succ [Toprol Xl] 12.5 mg PO DAILY #30 tab.er.24h 09/14/16 [Rx] levoFLOXacin [Levaquin] 500 mg PO DAILY #7 tablet 09/14/16 [Rx] predniSONE [PredniSONE] 10 mg PO DAILY 8 Days tablet 09/14/16 [Rx] 3 Allergy/AdvReac Type Severity Reaction Status Date / Time Influenza Virus Vaccines Allergy Hives Verified 08/06/16 18:28 All Systems PM: A 10-system review of systems was performed and is negative for pertinent findings except as documented above in the HPI. - Constitutional Constitutional: no fever(s) - EENT Eyes: no change in vision, no discharge, no pain, no photophobia - Cardiovascular Cardiovascular ROS IM: diaphoresis, dyspnea, edema, no chest pain, no irregular heart rhythm, no lightheadedness, no orthopnea, no palpitations, no paroxysmal nocturnal dyspnea, no syncope - Respiratory Respiratory: wheezing, no cough - Gastrointestinal Gastrointestinal: no abdominal pain, no constipation, no diarrhea - Genitourinary Genitourinary: no change in urinary stream, no dysuria, no flank pain, no hematuria - Musculoskeletal Musculoskeletal ROS IM: no numbness, no tingling - Integumentary Integumentary IM: no rash, no unusual bruising - Constitutional Vitals: Temp Pulse Resp BP Pulse Ox 98.2 F 104 23 117/81 97 03/09/17 13:39 03/09/17 15:46 03/09/17 15:46 03/09/17 15:46 03/09/17 15:46 General appearance: Present: A&O X 3 Exam: moderate respiratory distress on bipap - Head Head exam: Present: atraumatic, normocephalic - Eye Eye exam: Present: PERRL, conjuntiva pink, sclera anicteric Pupils: Present: PERRL - Respiratory Respiratory exam: Present: accessory muscle use, decreased breath sounds, prolonged expiratory phase, wheezes. Absent: rales - Cardiovascular Cardiovascular exam: Present: RRR, +S1, +S2. Absent: diastolic murmur, gallop, rubs, systolic murmur - GI/Abdominal GI/Abdominal exam: Present: normal bowel sounds, soft, no peritoneal signs. Absent: distended, tenderness - Extremities Exam Additional comments: Left lower leg has 2+ pedal edema, and it is cooler to touch than the right leg. Right leg has trace pedal edema. No calf tenderness. Internal Med - H&P Results - Labs CBC & Chem 7: 03/09/17 14:35 03/09/17 14:35 Labs: Short CBC 03/09/17 Range/Units 14:35 WBC 8.6 (4.3-11.1) K/mcL Hgb 15.0 (11.5-15.4) g/dL Hct 46.4 H (35.3-44.9) % Plt Count 272 (140-400) K/mcL Neutrophils # 6.9 (1.6-8.9) K/mcL BMP 03/09/17 14:35 Sodium 135 L Potassium 4.3 Chloride 98 Carbon Dioxide 29 BUN 18 Creatinine 0.81 Glucose 139 H Calcium 9.2 Cardiac Enzymes 03/09/17 Range/Units 14:35 Troponin I 0.05 H* (< 0.04) ng/mL - ABG Interpretation ABG results: 03/09/17 14:03 ABG pH 7.36 ABG pCO2 51 H ABG pO2 80 L ABG HCO3 29 H ABG Total CO2 30 H ABG O2 Saturation 95 ABG Base Excess 2 - Impressions ITS Impressions Chest X-Ray 03/09/17 13:42 IMPRESSION: 1. Small left pleural effusion. 2. Emphysema. D/ / Taco Fisher MD / Taco Fisher MD Interpreting Provider: Taco Fisher MD
[2017-03-09] MEDS ORDERED: GENTIAN VIOLET TP PRN (16:15)
[2017-03-09] MEDS ORDERED: Ondansetron 4 MG/2 ML VIAL IVP PRN (16:23)
[2017-03-09] MEDS ORDERED: Naloxone 0.4 MG/ML INJ IVP PRN (16:25)
[2017-03-09] MEDS ORDERED: Acetaminophen 325 MG TABLET PO PRN (16:25)
[2017-03-09] MEDS: Ipratropium/Albuterol Neb 3 ML IH SCH ×2 (20:34→20:45)
[2017-03-09] MEDS: Furosemide 20 MG/2 ML VIAL IVP SCH (20:35)
[2017-03-09] MEDS: Budesonide/Formoterol 160/4.5 MDI IH SCH (20:45)
[2017-03-10] MEDS: Ipratropium/Albuterol Neb 3 ML IH SCH ×7 (00:14→23:43)
[2017-03-10 05:14] LABS: Basophils % 0.1 %; Hematocrit 44.4 % (35.3-44.9); Hemoglobin 14.6 g/dL (11.5-15.4); Immature Granulocytes % 0.5 % (0-4); Lymphocytes # 0.8 K/mcL (0.6-4.6); Lymphocytes % 10.6 %; Mean Corpuscular HGB Conc 32.9 g/dL (31.6-35.5); Mean Corpuscular Hemoglobin 29.8 pg (28.0-33.3); Mean Corpuscular Volume 90.6 fL (83.0-100.0); Monocytes # 0.2 K/mcL (0.0-1.3); Monocytes % 3.2 %; Neutrophils # 6.5 K/mcL (1.6-8.9); Platelet Count 240 K/mcL (140-400); Red Cell Distribution Width 21.3 % (11.5-14.5); Segmented Neutrophils % 85.6 %
[2017-03-10] MEDS: *HR* Enoxaparin 40 MG/0.4 ML SYRINGE SQ SCH (05:29)
[2017-03-10 05:31] LABS: BUN/Creatinine Ratio 27 (6-26); Blood Urea Nitrogen 25 mg/dL (8-23); Carbon Dioxide 30 mEq/L (23-29); Chloride 100 mEq/L (98-107); Glucose 120 mg/dL (70-105); Potassium 4.3 mEq/L (3.5-5.1); Sodium 138 mEq/L (136-145); eGFR For African Americans > 60 (> 60); eGFR For Non-African Americans 59 (> 60)
[2017-03-10 05:32] LABS: Osmolality,Calculated 292 (280-300)
[2017-03-10] MEDS: Loratadine 10 MG TABLET PO SCH (08:34)
[2017-03-10] MEDS: Aspirin Enteric Coated 81 MG Tablet PO SCH (08:34)
[2017-03-10] MEDS: MethylPREDNISolone 40 MG/ML VIAL IVP SCH ×3 (08:36→23:21)
[2017-03-10] MEDS: Budesonide/Formoterol 160/4.5 MDI IH SCH ×2 (11:21→21:16)
[2017-03-10] MEDS: Furosemide 20 MG/2 ML VIAL IVP SCH ×2 (18:33→20:08)
--- NOTE | 2017-03-10 21:44 | Internal Med Progress Note ---
Date of Encounter: 03/10/17 Time of Encounter: 10:02 - Assessment and plan (1) Shortness of breath Current Visit: Yes Status: Acute Assessment and plan: Continue duo nebs, solu medrol, lasix when BP tolerates, fluid restrict, strict I/Os, daily weights. (2) COPD exacerbation Current Visit: No Status: Acute (3) Systolic CHF Current Visit: No Status: Chronic Qualifiers: Congestive heart failure chronicity: acute on chronic Qualified Code(s): I50.23 - Acute on chronic systolic (congestive) heart failure (4) CAD (coronary artery disease) Current Visit: No Status: Chronic Qualifiers: Coronary Disease-Associated Artery/Lesion type: [place] artery [place] vs. transplanted heart: [place] heart Associated angina: without angina Qualified Code(s): I25.10 - Atherosclerotic heart disease of [place] coronary artery without angina pectoris (5) Hypotension Current Visit: No Status: Resolved Qualifiers: Hypotension type: unspecified hypotension type Qualified Code(s): I95.9 - Hypotension, unspecified (6) DVT prophylaxis Current Visit: No Status: Acute - Subjective Interval history: Patient requiring bipap this AM. Unable to receive lasix last night or this morning because of hypotension. - Constitutional Vitals: Temp Pulse Resp BP Pulse Ox 97.9 F 97 21 94/79 87 03/10/17 19:24 03/10/17 19:24 03/10/17 21:16 03/10/17 21:16 03/10/17 21:16 General appearance: Present: A&O X 3, underweight, answers questions appropriately Exam: Pulm: on bipap, using accessory muscles in moderate distress. Diminished breath sounds with poor air exchange and prolonged end expiratory wheezing. CVS: RRR Abd: NT/ND Ext: 1+ bipedal pitting edema Internal Medicine: Result - Labs CBC & Chem 7: 03/10/17 04:54 03/10/17 04:54 Labs: Short CBC 03/10/17 Range/Units 04:54 WBC 7.6 (4.3-11.1) K/mcL Hgb 14.6 (11.5-15.4) g/dL Hct 44.4 (35.3-44.9) % Plt Count 240 (140-400) K/mcL Neutrophils # 6.5 (1.6-8.9) K/mcL BMP 03/10/17 04:54 Sodium 138 Potassium 4.3 Chloride 100 Carbon Dioxide 30 H BUN 25 H Creatinine 0.92 Glucose 120 H Calcium 9.0 Cardiac Enzymes 03/09/17 Range/Units 21:46 Troponin I 0.06 H* (< 0.04) ng/mL - ABG Interpretation ABG results: ABG ABG pH 7.36 pH Units (7.32-7.45) 03/09/17 14:03 ABG pCO2 51 mmHg (35-45) H 03/09/17 14:03 ABG pO2 80 mmHg (85-104) L 03/09/17 14:03 ABG O2 Saturation 95 % (95-98) 03/09/17 14:03 PT/INR, D-dimer PT 13.2 Seconds (9.4-12.1) H 03/09/17 14:35 D-Dimer 1521 ng/mLFEU (0-500) H 03/09/17 14:35 Consult Discharge Plan - Plan [facility]errals: [facility] [Primary Care Provider] -
[2017-03-11 04:37] LABS: Basophils % 0.1 %; Hematocrit 42.4 % (35.3-44.9); Hemoglobin 14.1 g/dL (11.5-15.4); Immature Granulocytes % 0.4 % (0-4); Lymphocytes # 0.7 K/mcL (0.6-4.6); Lymphocytes % 6.4 %; Mean Corpuscular HGB Conc 33.3 g/dL (31.6-35.5); Mean Corpuscular Volume 90.2 fL (83.0-100.0); Mean Platelet Volume 10.2 fL (9.4-12.4); Monocytes # 0.4 K/mcL (0.0-1.3); Monocytes % 3.5 %; Neutrophils # 9.5 K/mcL (1.6-8.9); Platelet Count 250 K/mcL (140-400); Red Cell Distribution Width 21.6 % (11.5-14.5); Segmented Neutrophils % 89.6 %
[2017-03-11] MEDS: *HR* Enoxaparin 40 MG/0.4 ML SYRINGE SQ SCH (05:10)
[2017-03-11] MEDS: Ipratropium/Albuterol Neb 3 ML IH SCH ×5 (05:13→21:24)
[2017-03-11] MEDS ORDERED: Furosemide 40 MG/4 ML VIAL IVP ONE (07:22)
[2017-03-11 07:41] LABS: BUN/Creatinine Ratio 37 (6-26); Blood Urea Nitrogen 38 mg/dL (8-23); Calcium 8.7 mg/dL (8.6-10.3); Carbon Dioxide 29 mEq/L (23-29); Chloride 101 mEq/L (98-107); Glucose 175 mg/dL (70-105); Osmolality,Calculated 295 (280-300); Potassium 4.6 mEq/L (3.5-5.1); Sodium 136 mEq/L (136-145); eGFR For African Americans > 60 (> 60); eGFR For Non-African Americans 52 (> 60)
[2017-03-11] MEDS: Budesonide/Formoterol 160/4.5 MDI IH SCH ×2 (07:47→21:24)
[2017-03-11] MEDS: Loratadine 10 MG TABLET PO SCH (08:13)
[2017-03-11] MEDS: Furosemide 20 MG/2 ML VIAL IVP SCH (08:14)
[2017-03-11] MEDS: MethylPREDNISolone 40 MG/ML VIAL IVP SCH ×2 (08:14→16:43)
[2017-03-11] MEDS: Aspirin Enteric Coated 81 MG Tablet PO SCH (08:15)
--- NOTE | 2017-03-11 16:58 | Internal Med Progress Note ---
Date of Encounter: 03/11/17 Time of Encounter: 16:56 - Assessment and plan (1) Shortness of breath Current Visit: Yes Status: Acute Assessment and plan: 03/10 BP was too low for any Lasix. This AM BP tolerated and so she will be given IV Lasix. Continue duo nebs, solu medrol, lasix when BP tolerates, fluid restrict, strict I/Os, daily weights. (2) COPD exacerbation Current Visit: No Status: Acute (3) Systolic CHF Current Visit: No Status: Chronic Qualifiers: Congestive heart failure chronicity: acute on chronic Qualified Code(s): I50.23 - Acute on chronic systolic (congestive) heart failure (4) CAD (coronary artery disease) Current Visit: No Status: Chronic Qualifiers: Coronary Disease-Associated Artery/Lesion type: [place] artery [place] vs. transplanted heart: [place] heart Associated angina: without angina Qualified Code(s): I25.10 - Atherosclerotic heart disease of [place] coronary artery without angina pectoris (5) Hypotension Current Visit: No Status: Resolved Qualifiers: Hypotension type: unspecified hypotension type Qualified Code(s): I95.9 - Hypotension, unspecified (6) DVT prophylaxis Current Visit: No Status: Acute - Subjective Interval history: Patient was not on bipap long this morning. SOB improving but she is still on 4 L NC and is on 2 L at home. Denies chest pain, n/v, fevers, cough. - Constitutional Vitals: Temp Pulse Resp BP Pulse Ox 97.9 F 97 14 100/71 96 03/11/17 16:47 03/11/17 16:47 03/11/17 16:47 03/11/17 16:47 03/11/17 16:47 Exam: Gen: No acute distress, better overall appearance than my exam yesterday CVS: RRR Lungs: air exchange improved at both lung bases. Fine rales throughout, mild end expiratory wheezing Ext: 1-2+ bipedal pitting edema. Internal Medicine: Result - Labs CBC & Chem 7: 03/11/17 03:40 03/11/17 05:59 Labs: Short CBC 03/11/17 Range/Units 03:40 WBC 10.6 (4.3-11.1) K/mcL Hgb 14.1 (11.5-15.4) g/dL Hct 42.4 (35.3-44.9) % Plt Count 250 (140-400) K/mcL Neutrophils # 9.5 H (1.6-8.9) K/mcL BMP 03/11/17 05:59 Sodium 136 Potassium 4.6 Chloride 101 Carbon Dioxide 29 BUN 38 H Creatinine 1.03 Glucose 175 H Calcium 8.7 - ABG Interpretation ABG results: ABG ABG pH 7.36 pH Units (7.32-7.45) 03/09/17 14:03 ABG pCO2 51 mmHg (35-45) H 03/09/17 14:03 ABG pO2 80 mmHg (85-104) L 03/09/17 14:03 ABG O2 Saturation 95 % (95-98) 03/09/17 14:03 PT/INR, D-dimer PT 13.2 Seconds (9.4-12.1) H 03/09/17 14:35 D-Dimer 1521 ng/mLFEU (0-500) H 03/09/17 14:35 Consult Discharge Plan - Plan Referrals: [facility]P [Primary Care Provider] -
[2017-03-11] MEDS ORDERED: Acetaminophen/Butalbital/CaffeineTABLET PO PRN (20:27)
[2017-03-12] MEDS: Ipratropium/Albuterol Neb 3 ML IH SCH ×5 (00:10→16:28)
[2017-03-12] MEDS: MethylPREDNISolone 40 MG/ML VIAL IVP SCH ×4 (00:33→23:53)
[2017-03-12] MEDS: *HR* Enoxaparin 40 MG/0.4 ML SYRINGE SQ SCH (05:30)
[2017-03-12 05:40] LABS: Basophils % 0.1 %; Hematocrit 43.5 % (35.3-44.9); Hemoglobin 14.2 g/dL (11.5-15.4); Immature Granulocytes % 0.6 % (0-4); Lymphocytes # 0.5 K/mcL (0.6-4.6); Lymphocytes % 4.4 %; Mean Corpuscular HGB Conc 32.6 g/dL (31.6-35.5); Mean Corpuscular Hemoglobin 29.6 pg (28.0-33.3); Mean Corpuscular Volume 90.6 fL (83.0-100.0); Mean Platelet Volume 9.9 fL (9.4-12.4); Monocytes # 0.3 K/mcL (0.0-1.3); Monocytes % 2.9 %; Neutrophils # 9.5 K/mcL (1.6-8.9); Platelet Count 301 K/mcL (140-400); Red Cell Distribution Width 21.8 % (11.5-14.5)
[2017-03-12 05:56] LABS: BUN/Creatinine Ratio 41 (6-26); Blood Urea Nitrogen 40 mg/dL (8-23); Calcium 8.5 mg/dL (8.6-10.3); Carbon Dioxide 33 mEq/L (23-29); Chloride 100 mEq/L (98-107); Glucose 146 mg/dL (70-105); Osmolality,Calculated 298 (280-300); Potassium 4.3 mEq/L (3.5-5.1); Sodium 138 mEq/L (136-145); eGFR For African Americans > 60 (> 60); eGFR For Non-African Americans 55 (> 60)
[2017-03-12] MEDS ORDERED: Furosemide 40 MG/4 ML VIAL IVP ONE (07:50)
[2017-03-12] MEDS: Budesonide/Formoterol 160/4.5 MDI IH SCH ×2 (08:23→21:48)
[2017-03-12] MEDS: Loratadine 10 MG TABLET PO SCH (08:44)
[2017-03-12] MEDS: Aspirin Enteric Coated 81 MG Tablet PO SCH (08:44)
--- NOTE | 2017-03-12 08:45 | Internal Med Progress Note ---
Date of Encounter: 03/12/17 Time of Encounter: 08:43 - Assessment and plan (1) Shortness of breath Current Visit: Yes Status: Acute Assessment and plan: 03/10 BP was too low for any Lasix. This yesterday able to tolerate Lasix for one dose. Today will attempt to make Lasix BID again. Increase activity, start incentive spirometry Titrate supplemental O2 to keep SpO2 sats 90-92% Continue duo nebs, solu medrol, lasix when BP tolerates, fluid restrict, strict I/Os, daily weights. (2) COPD exacerbation Current Visit: No Status: Acute Assessment and plan: Start emperic antibiotic therapy (3) Systolic CHF Current Visit: No Status: Chronic Qualifiers: Congestive heart failure chronicity: acute on chronic Qualified Code(s): I50.23 - Acute on chronic systolic (congestive) heart failure (4) CAD (coronary artery disease) Current Visit: No Status: Chronic Qualifiers: Coronary Disease-Associated Artery/Lesion type: [place] artery [place] vs. transplanted heart: [place] heart Associated angina: without angina Qualified Code(s): I25.10 - Atherosclerotic heart disease of [place] coronary artery without angina pectoris (5) Hypotension Current Visit: No Status: Resolved Qualifiers: Hypotension type: unspecified hypotension type Qualified Code(s): I95.9 - Hypotension, unspecified (6) DVT prophylaxis Current Visit: No Status: Acute - Subjective Interval history: Patient was not on bipap long this morning. SOB improving but she is still on 4 L NC and is on 2 L at home. Denies chest pain, n/v, fevers, cough. 03/12/17, required bipap overnight, was able to receive one dose of Lasix. - Constitutional Vitals: Temp Pulse Resp BP Pulse Ox 97.3 F L 99 20 118/86 95 03/12/17 05:02 03/12/17 07:17 03/12/17 07:17 03/12/17 07:17 03/12/17 07:17 General appearance: Present: A&O X 3, underweight, answers questions appropriately - Respiratory Respiratory exam: Present: decreased breath sounds, rales, wheezes Additional comments: Improved air exchange but still diminished in bases, wheezing no appreciated. - Cardiovascular Cardiovascular exam: Present: RRR, +S1, +S2. Absent: diastolic murmur, gallop, rubs, systolic murmur - Extremities Exam Extremities exam: Present: normal capillary refill, pedal edema, warm Internal Medicine: Result - Labs CBC & Chem 7: 03/12/17 05:20 03/12/17 05:20 Labs: Short CBC 03/12/17 Range/Units 05:20 WBC 10.3 (4.3-11.1) K/mcL Hgb 14.2 (11.5-15.4) g/dL Hct 43.5 (35.3-44.9) % Plt Count 301 (140-400) K/mcL Neutrophils # 9.5 H (1.6-8.9) K/mcL BMP 03/12/17 05:20 Sodium 138 Potassium 4.3 Chloride 100 Carbon Dioxide 33 H BUN 40 H Creatinine 0.98 Glucose 146 H Calcium 8.5 L - ABG Interpretation ABG results: ABG ABG pH 7.36 pH Units (7.32-7.45) 03/09/17 14:03 ABG pCO2 51 mmHg (35-45) H 03/09/17 14:03 ABG pO2 80 mmHg (85-104) L 03/09/17 14:03 ABG O2 Saturation 95 % (95-98) 03/09/17 14:03 PT/INR, D-dimer PT 13.2 Seconds (9.4-12.1) H 03/09/17 14:35 D-Dimer 1521 ng/mLFEU (0-500) H 03/09/17 14:35 Consult Discharge Plan - Plan [facility]errals: [facility] [Primary Care Provider[facility] -
[2017-03-12] MEDS ORDERED: levoFLOXacin 750 MG TABLET PO SCH (09:00)
[2017-03-12 11:51] LABS: Mycoplasma pneumoniae IgG 0.05 U/L (<=0.09)
[2017-03-12] MEDS: Furosemide 40 MG/4 ML VIAL IVP SCH ×2 (12:08→17:01)
[2017-03-12] MEDS ORDERED: *HR* Metoprolol 5 MG/5 ML VIAL IVP PRN (18:01)
[2017-03-12] MEDS: Ipratropium Neb 0.5 MG NEBULIZER IH SCH (21:48)
[2017-03-13] MEDS: Ipratropium Neb 0.5 MG NEBULIZER IH SCH ×4 (04:01→22:07)
[2017-03-13] MEDS: *HR* Enoxaparin 40 MG/0.4 ML SYRINGE SQ SCH (05:17)
[2017-03-13 08:16] LABS: Hematocrit 44.4 % (35.3-44.9); Hemoglobin 14.3 g/dL (11.5-15.4); Immature Granulocytes % 0.3 % (0-4); Lymphocytes # 0.4 K/mcL (0.6-4.6); Lymphocytes % 4.8 %; Mean Corpuscular HGB Conc 32.2 g/dL (31.6-35.5); Mean Corpuscular Hemoglobin 29.4 pg (28.0-33.3); Mean Corpuscular Volume 91.4 fL (83.0-100.0); Mean Platelet Volume 9.5 fL (9.4-12.4); Monocytes # 0.4 K/mcL (0.0-1.3); Monocytes % 4.6 %; Neutrophils # 8.1 K/mcL (1.6-8.9); Platelet Count 274 K/mcL (140-400); Red Blood Count 4.86 M/mcL (3.82-4.97); Red Cell Distribution Width 21.4 % (11.5-14.5); Segmented Neutrophils % 90.3 %
[2017-03-13] MEDS: Loratadine 10 MG TABLET PO SCH (09:26)
[2017-03-13] MEDS: Aspirin Enteric Coated 81 MG Tablet PO SCH (09:26)
[2017-03-13] MEDS: cefTRIAXone 1,000 MG in Water for inj. (sterile) 10 ML IVP SCH (09:26)
[2017-03-13] MEDS: Furosemide 40 MG/4 ML VIAL IVP SCH ×2 (09:27→16:12)
[2017-03-13] MEDS: MethylPREDNISolone 40 MG/ML VIAL IVP SCH ×2 (09:27→16:12)
[2017-03-13 09:32] LABS: BUN/Creatinine Ratio 42 (6-26); Blood Urea Nitrogen 36 mg/dL (8-23); Calcium 8.3 mg/dL (8.6-10.3); Carbon Dioxide 32 mEq/L (23-29); Chloride 99 mEq/L (98-107); Glucose 133 mg/dL (70-105); Osmolality,Calculated 294 (280-300); Potassium 4.1 mEq/L (3.5-5.1); Sodium 137 mEq/L (136-145); eGFR For African Americans > 60 (> 60); eGFR For Non-African Americans > 60 (> 60)
[2017-03-13] MEDS: Budesonide/Formoterol 160/4.5 MDI IH SCH ×2 (10:43→22:07)
--- NOTE | 2017-03-13 10:55 | Electrocardiograph Report ---
[address] [place] [address] Test Date: 2017-03-09 Pat Name: Pushpa Bernardo Department: 104 Room: 2NE27 Gender: F Transfer Knitter: STEPHIE : 1935 Requested By: Rodney Johnson Order Number: [id number] Reading MD: Torito Rivas DO Measurements Intervals [place] Rate: 106 P: 84 [place]: 212 QRS: 161 QRSD: 85 T: 62 QT: 325 QTc: 387 Interpretive Statements SINUS TACHYCARDIA WITH FIRST DEGREE AV BLOCK POSSIBLE LEFT ATRIAL ENLARGEMENT LOW QRS VOLTAGE IN EXTREMITY LEADS POSSIBLE ANTEROLATERAL MYOCARDIAL INFARCTION, OF INDETERMINATE AGE Electronically Signed On 03-13-2017 10:53:54 EST by Torito Rivas DO
--- NOTE | 2017-03-13 16:55 | Electrocardiograph Report ---
[address] [place] [address] Test Date: 2017-03-12 Pat Name: Pushpa Bernardo Department: 111 Room: 2N7 Gender: F Psychiatry Adult Physician: : 1935 Requested By: Donna Ramires Order Number: [id number] Reading MD: Norman Saxena Measurements Intervals [place] Rate: 137 P: 113 NV: 145 QRS: 12 QRSD: 94 T: 59 QT: 287 QTc: 367 Interpretive Statements SINUS TACHYCARDIA POSSIBLE ANTERIOR MYOCARDIAL INFARCTION Electronically Signed On 03-13-2017 16:54:14 EST by Norman Saxena
--- NOTE | 2017-03-13 20:43 | Internal Med Progress Note ---
Date of Encounter: 03/13/17 Time of Encounter: 14:43 - Assessment and plan (1) Shortness of breath Current Visit: Yes Status: Acute Assessment and plan: Improving with Lasix Sputum culture positive for Strep pneumonia Continue Lasix, change antibitics to Rocephin and D/C Levaquin, continue corticosteroids. (2) Streptococcal pneumonia Current Visit: Yes Status: Acute Assessment and plan: Will change to Rocephin and DC Levaquin (3) COPD exacerbation Current Visit: No Status: Acute Assessment and plan: Start emperic antibiotic therapy (4) Systolic CHF Current Visit: No Status: Chronic Qualifiers: Congestive heart failure chronicity: acute on chronic Qualified Code(s): I50.23 - Acute on chronic systolic (congestive) heart failure (5) CAD (coronary artery disease) Current Visit: No Status: Chronic Qualifiers: Coronary Disease-Associated Artery/Lesion type: [place] artery [place] vs. transplanted heart: [place] heart Associated angina: without angina Qualified Code(s): I25.10 - Atherosclerotic heart disease of [place] coronary artery without angina pectoris (6) Hypotension Current Visit: No Status: Resolved Qualifiers: Hypotension type: unspecified hypotension type Qualified Code(s): I95.9 - Hypotension, unspecified (7) DVT prophylaxis Current Visit: No Status: Acute - Subjective Interval history: Patient was not on bipap long this morning. SOB improving but she is still on 4 L NC and is on 2 L at home. Denies chest pain, n/v, fevers, cough. 03/12/17, required bipap overnight, was able to receive one dose of Lasix. - Constitutional Vitals: Temp Pulse Resp BP Pulse Ox 97.8 F 85 14 95/57 93 03/13/17 16:36 03/13/17 16:36 03/13/17 16:36 03/13/17 16:36 03/13/17 16:36 General appearance: Present: A&O X 3, underweight, answers questions appropriately - Respiratory Respiratory exam: Present: decreased breath sounds, CTAB. Absent: accessory muscle use, rales, rhonchi, wheezes - Cardiovascular Cardiovascular exam: Present: RRR, +S1, +S2. Absent: diastolic murmur, gallop, rubs, systolic murmur - Extremities Exam Extremities exam: Present: pedal edema (Improved since yesterdays exam) Internal Medicine: Result - Labs CBC & Chem 7: 03/13/17 07:41 03/13/17 07:41 Labs: Short CBC 03/13/17 Range/Units 07:41 WBC 9.0 (4.3-11.1) K/mcL Hgb 14.3 (11.5-15.4) g/dL Hct 44.4 (35.3-44.9) % Plt Count 274 (140-400) K/mcL Neutrophils # 8.1 (1.6-8.9) K/mcL BMP 03/13/17 07:41 Sodium 137 Potassium 4.1 Chloride 99 Carbon Dioxide 32 H BUN 36 H Creatinine 0.86 Glucose 133 H Calcium 8.3 L - ABG Interpretation ABG results: ABG ABG pH 7.36 pH Units (7.32-7.45) 03/09/17 14:03 ABG pCO2 51 mmHg (35-45) H 03/09/17 14:03 ABG pO2 80 mmHg (85-104) L 03/09/17 14:03 ABG O2 Saturation 95 % (95-98) 03/09/17 14:03 PT/INR, D-dimer PT 13.2 Seconds (9.4-12.1) H 03/09/17 14:35 D-Dimer 1521 ng/mLFEU (0-500) H 03/09/17 14:35 Consult Discharge Plan - Plan Referrals: Hillary Renteria CNP [Advanced Practice Nurse] - 03/21/17 2:15 pm
[2017-03-14] MEDS: MethylPREDNISolone 40 MG/ML VIAL IVP SCH ×2 (01:00→09:29)
[2017-03-14] MEDS: Ipratropium Neb 0.5 MG NEBULIZER IH SCH ×3 (04:02→15:42)
[2017-03-14] MEDS: *HR* Enoxaparin 40 MG/0.4 ML SYRINGE SQ SCH (06:05)
[2017-03-14 06:20] LABS: Hematocrit 45.6 % (35.3-44.9); Hemoglobin 14.5 g/dL (11.5-15.4); Immature Granulocytes % 0.6 % (0-4); Lymphocytes # 0.6 K/mcL (0.6-4.6); Lymphocytes % 7.3 %; Mean Corpuscular HGB Conc 31.8 g/dL (31.6-35.5); Mean Corpuscular Volume 91.2 fL (83.0-100.0); Mean Platelet Volume 9.8 fL (9.4-12.4); Monocytes # 0.4 K/mcL (0.0-1.3); Monocytes % 5.2 %; Platelet Count 304 K/mcL (140-400); Red Cell Distribution Width 21.5 % (11.5-14.5); Segmented Neutrophils % 86.9 %
[2017-03-14 06:24] LABS: BUN/Creatinine Ratio 45 (6-26); Blood Urea Nitrogen 39 mg/dL (8-23); Calcium 8.1 mg/dL (8.6-10.3); Carbon Dioxide 35 mEq/L (23-29); Chloride 96 mEq/L (98-107); Glucose 128 mg/dL (70-105); Osmolality,Calculated 295 (280-300); Sodium 137 mEq/L (136-145); eGFR For African Americans > 60 (> 60); eGFR For Non-African Americans > 60 (> 60)
--- NOTE | 2017-03-14 07:38 | Discharge Summary ---
Date of Encounter: 03/14/17 Time of Encounter: 11:51 - Discharge Diagnosis (1) Shortness of breath Priority: Primary Status: Resolved (2) Streptococcal pneumonia Priority: Secondary Status: Acute (3) COPD exacerbation Priority: Secondary Status: Acute (4) Systolic CHF Priority: Secondary Status: Chronic Qualifiers: Congestive heart failure chronicity: acute on chronic Qualified Code(s): I50.23 - Acute on chronic systolic (congestive) heart failure (5) CAD (coronary artery disease) Priority: Secondary Status: Chronic Qualifiers: Coronary Disease-Associated Artery/Lesion type: [place] artery [place] vs. transplanted heart: [place] heart Associated angina: without angina Qualified Code(s): I25.10 - Atherosclerotic heart disease of [place] coronary artery without angina pectoris (6) Hypotension Priority: Secondary Status: Resolved Qualifiers: Hypotension type: unspecified hypotension type Qualified Code(s): I95.9 - Hypotension, unspecified (7) DVT prophylaxis Priority: Secondary Status: Acute - Discharge Medications Prescriptions: Doxycycline 100 mg PO BID #10 capsule Home Medications: Atorvastatin [Lipitor] 80 mg PO HS tablet 08/11/16 [Rx] Albuterol Sulfate [Proventil Hfa] 2 puff IH QID PRN 09/11/16 [History] Aspirin Enteric Coated [Aspirin EC] 81 mg PO DAILY 09/11/16 [History] Budesonide/Formoterol 160/4.5 [Symbicort 160/4.5] 1 puff IH BIDR 09/11/16 [ History] Cetirizine HCl [Zyrtec] 10 mg PO DAILY 09/11/16 [History] Clopidogrel [Plavix] 75 mg PO DAILY 09/11/16 [History] Lidocaine Patch [Lidoderm 5% patch] 1 each TP DAILY 09/11/16 [History] Promethazine [Phenergan] 25 mg PO Q6HR PRN 09/11/16 [History] Albuterol Neb [Proventil Neb] 2.5 mg IH Q4HR PRN #30 vial.neb 09/14/16 [Rx] Calcium Carbonate/Vitamin D3 [Calcium 500-Vit D3 200 Tablet] 1 each PO BID 03/09 [History] Carvedilol [Coreg] 6.25 mg PO BIDWM 03/09/17 [History] Cholecalciferol (D-3) [Vitamin D] 2,000 unit PO DAILY 03/09/17 [History] Furosemide [Lasix] 30 mg PO DAILY 03/09/17 [History] HYDROcodone/Acet 5/325 mg [[place] 5-325 mg] 1 tab PO TID PRN 03/09/17 [History] Magnesium Oxide [Mag-Ox] 400 mg PO DAILY 03/09/17 [History] Montelukast [Singulair] 10 mg PO DAILY 03/09/17 [History] Potassium Chloride [Klor-Con 10] 30 meq PO DAILY 03/09/17 [History] Venlafaxine XR (24 HR) [Effexor Xr] 37.5 mg PO DAILY 03/09/17 [History] traZODone [TraZODone] 25 mg PO HS 03/09/17 [History] Doxycycline 100 mg PO BID #10 capsule 03/14/17 [Rx] Allergies/Adverse Reactions: 3 Allergy/AdvReac Type Severity Reaction Status Date / Time Influenza Virus Vaccines Allergy Hives Verified 08/06/16 18:28 Amoxicillin [From Augmentin] AdvReac See Verified 03/09/17 17:51 Comments clavulanic acid AdvReac See Verified 03/09/17 17:51 [From Augmentin] Comments Iodinated Contrast- Oral and AdvReac See Verified 03/09/17 17:51 IV Dye Comments sulfasalazine AdvReac See Verified 03/09/17 17:51 Comments tramadol AdvReac See Verified 03/09/17 17:51 Comments Procedures/tests Complete & Pending: Procedures Performed prior 72 hours Category Date Time Status EKG [ECG 12 lead ECG] [ECG] Stat Y 03/12/17 17:35 Completed Date of admission: 03/09/17 17:28 [facility] Consults: 03/09/17 18:04 Consult to Nutrition [CONS] Routine Comment: Consulting Provider: NUTRITION Reason for Dietary Consult: MST Score Discharging clinician: Jair Jean Baptiste - Patient Status Disposition: Home, Self-Care Condition: Fair Functional capacity at discharge: independent ambulation Overall status at discharge: patient is progressing back to baseline - Discharge Instructions Follow Up With: Hillary Renteria [employer] [Advanced Practice Nurse] - 03/21/17 2:15 pm - Diet and Activity Activity: increase activity as tolerated Diet: advance to your usual diet Hospital course: Ms. Bernardo is a 81 year old female with history of COPD, systolic heart failure (EF 35% 07/2016), ischemic cardiomyopathy, presents for acute onset shortness of breath. She also complains of left shoulder pain without a history of trauma and diaphoresis. She denies chest pain, cough, n/v, fevers/ chills, palpitations, syncope. No recent sick contacts, no new exposures. She admits to some lower extremity edema. She refused bipap on arrival but patient is on bipap on my assessment. A chest x-ray in ED shows small left pleural effusion, BNP elevated at 4550 which is above her normal levels. Troponin is 0.05 which is her baseline. Review of past hospital visit shows patient is not on beta marc or sudhakar inhibitor because of persistent hypotension. Patient was started on Levaquin empirically, solu medrol, lasix. Patient improved clinically with treatment. She had positive sputum culture for Strep pneumo and Procalcitonin on admission was 0.14 suggestive of pneumnoia, and was sensitive to doxycycline and patient was discharged to finish 5 additional days of therapy. - Time Spent with Patient Total time spent providing and/or coordinating discharge services: - Constitutional Vitals: Temp Pulse Resp BP Pulse Ox 97.5 F L 85 14 110/76 96 03/14/17 06:49 03/14/17 06:49 03/14/17 06:49 03/14/17 06:49 03/14/17 06:49 General appearance: Present: A&O X 3, underweight, answers questions appropriately Exam: CVS: RRR Lungs: better air exchange since yesterday, CTAB, diminished breath sound at bases. Ext: Edema improved.
[2017-03-14] MEDS: cefTRIAXone 1,000 MG in Water for inj. (sterile) 10 ML IVP SCH (09:29)
[2017-03-14] MEDS: Aspirin Enteric Coated 81 MG Tablet PO SCH (09:29)
[2017-03-14] MEDS: Loratadine 10 MG TABLET PO SCH (09:29)
[2017-03-14] MEDS: Budesonide/Formoterol 160/4.5 MDI IH SCH (10:49)
[2017-03-14 10:53] VITALS: BP 99/74
--- NOTE | 2017-03-14 13:20 | Physician Discharge Referral ---
Home Health/Hosp Referral Info Transfer to: Home Health - Diagnosis (1) Shortness of breath Priority: Primary Status: Resolved (2) Streptococcal pneumonia Priority: Secondary Status: Acute (3) COPD exacerbation Priority: Secondary Status: Acute (4) Systolic CHF Priority: Secondary Status: Chronic (5) CAD (coronary artery disease) Priority: Secondary Status: Chronic (6) Hypotension Priority: Secondary Status: Resolved (7) DVT prophylaxis Priority: Secondary Status: Acute - Respiratory Orders Oxygen / L per min (2-3 L/min) Smoking Cessation: Smoking cessation has been advised. For more information, call the [place] Tobacco Quit Line at 4-740-TEHE-NOW. - Diet/Nutrition Diet/Nutrition Orders: Cardiac - Activity Activity Orders: Walker - Services Needed Following services are medically necessary services: Nursing, Home Health Aide - Transfer Medications Prescriptions: Doxycycline 100 mg PO BID #10 capsule Home Medications: Atorvastatin [Lipitor] 80 mg PO HS tablet 08/11/16 [Rx] Albuterol Sulfate [Proventil Hfa] 2 puff IH QID PRN 09/11/16 [History] Aspirin Enteric Coated [Aspirin EC] 81 mg PO DAILY 09/11/16 [History] Budesonide/Formoterol 160/4.5 [Symbicort 160/4.5] 1 puff IH BIDR 09/11/16 [ History] Cetirizine HCl [Zyrtec] 10 mg PO DAILY 09/11/16 [History] Clopidogrel [Plavix] 75 mg PO DAILY 09/11/16 [History] Lidocaine Patch [Lidoderm 5% patch] 1 each TP DAILY 09/11/16 [History] Promethazine [Phenergan] 25 mg PO Q6HR PRN 09/11/16 [History] Albuterol Neb [Proventil Neb] 2.5 mg IH Q4HR PRN #30 vial.neb 09/14/16 [Rx] Calcium Carbonate/Vitamin D3 [Calcium 500-Vit D3 200 Tablet] 1 each PO BID 03/09 [History] Carvedilol [Coreg] 6.25 mg PO BIDWM 03/09/17 [History] Cholecalciferol (D-3) [Vitamin D] 2,000 unit PO DAILY 03/09/17 [History] Furosemide [Lasix] 30 mg PO DAILY 03/09/17 [History] HYDROcodone/Acet 5/325 mg [[place] 5-325 mg] 1 tab PO TID PRN 03/09/17 [History] Magnesium Oxide [Mag-Ox] 400 mg PO DAILY 03/09/17 [History] Montelukast [Singulair] 10 mg PO DAILY 03/09/17 [History] Potassium Chloride [Klor-Con 10] 30 meq PO DAILY 03/09/17 [History] Venlafaxine XR (24 HR) [Effexor Xr] 37.5 mg PO DAILY 03/09/17 [History] traZODone [TraZODone] 25 mg PO HS 03/09/17 [History] Doxycycline 100 mg PO BID #10 capsule 03/14/17 [Rx] Allergies/Adverse Reactions: 3 Allergy/AdvReac Type Severity Reaction Status Date / Time Influenza Virus Vaccines Allergy Hives Verified 08/06/16 18:28 Amoxicillin [From Augmentin] AdvReac See Verified 03/09/17 17:51 Comments clavulanic acid AdvReac See Verified 03/09/17 17:51 [From Augmentin] Comments Iodinated Contrast- Oral and AdvReac See Verified 03/09/17 17:51 IV Dye Comments sulfasalazine AdvReac See Verified 03/09/17 17:51 Comments tramadol AdvReac See Verified 03/09/17 17:51 Comments Certification: Further, I certify that my clinical findings support that this patient is homebound (i.e. absences from home require considerable and taxing effort and are for medical reasons or yazidi services or infrequently or short duration when for other reasons) because: Homebound Reason: Patient requires assistance of a person or device to safely leave home, Leaving home requires considerable and taxing effort due to condition, Severity of cardiac or pulmonary status limits activity tolerance Attestation: My signature below is to certify that this patient is under my care and that I, or nurse practitioner, or a physician's healthcare administrative assistant working with me, has a face-to -face encounter with this patient.
== END 2017-03-14 17:39 | disposition home or self-care (01) | DRG 190 ==
LOC: EMEROO 13:38 → 2NENU 13:38
PROVIDERS: ADMIT Internal Medicine Nephrology; ATTEND Family Medicine